=== PATIENT | female | born 1950 | race Caucasian/White ===

== ENCOUNTER → 2021-06-17 08:59 | Outpatient (BNVA) | payer MEDICARE, SELFPAY | PROVIDERS: Visit Provider Nurse Practitioner Family | DX: E03.9 Hypothyroidism, unspecified (principal); I10 Essential (primary) hypertension; Z68.26 Body mass index [BMI] 26.0-26.9, adult | CPT/HCPCS: 80053; 80061; 84439; 84443; 85025 ==

== ENCOUNTER 2021-08-01 09:49 | Emergency (ER) | payer MEDICARE, SELFPAY ==
[2021-08-01 10:07] VITALS: BP 134/115; PULSE 91; RESP 20; TEMP 36.3; O2SAT 95; BMI 27.8
--- NOTE | 2021-08-01 10:07 | W.ED.GIBLEED ---
Documented by User: CHARLES Grady 08/01/21 14:16 HPI - GI Bleed General: Chief complaint: General Medical Stated complaint: Passing blood Time Seen by Provider: 08/01/21 10:06 Source: patient and family () Mode of arrival: ambulatory Limitations: no limitations History of Present Illness: Patient is a 71-year-old female who presents to ED today along with her for concerns of abdominal cramping and hematochezia starting yesterday evening. Patient states she could have a UTI as she is having urinary urgency. She has not noticed any dysuria or hematuria. She states she does have a known hemorrhoid and thinks that could be the source of her rectal bleeding. Patient and states she has had approximately 3 episodes total that contained approximately 2 tablespoons of bright red blood/clots. Patient states she gets abdominal cramping prior to needing to have a bowel movement. She states cramping subsides after she defecates. She has no previous history of enterocolitis, diverticulitis, etc. Previous abdominal surgeries include a cholecystectomy. Onset (ago): day(s) (yesterday) Pain Consistency: intermittent Relieving factors: bowel movement Exacerbating factors: none Associated symptoms: Reports abdominal pain; Denies chills, fever(s), malaise, nausea or vomiting Treatments Prior to Arrival: none Review of Systems Const: Denies: fever(s), chills, body aches, fatigue or malaise Card: Denies: chest pain Resp: Denies: dyspnea GI: Reports: abdominal pain, GI cramping and hematochezia; Denies: nausea, vomiting, hematemesis, heartburn, diarrhea, constipation, excessive flatus, fecal incontinence, melena or white/light colored stool : Reports: urinary urgency; Denies: flank pain, dysuria or hematuria Musc: Denies: back pain Neuro: Denies: weakness in extremities or dizziness PFS ED PFSH: Medical History History of skin cancer Hypertension Hypothyroidism Surgical History History of cholecystectomy History of heart surgery Social History Alcohol intake: never Physical Exam Const: COMMON NORMALS: no acute distress, patient oriented x3, no limitations, alert and well nourished GENERAL APPEARANCE: cooperative HENMT: COMMON NORMALS: normocephalic and atraumatic HEAD & SCALP: normocephalic and atraumatic Resp: COMMON NORMALS: normal respiratory effort and clear to auscultation bilaterally AUSCULTATION: clear to auscultation bilaterally Cardio: COMMON NORMALS: regular rate and regular rhythm RATE: regular rate RHYTHM: regular rhythm GI: COMMON NORMALS: Normal to inspection, nondistended, normoactive bowel sounds present, Soft to palpation, non-tender, No hepatosplenomegaly present and no masses INSPECTION: Yes normal to inspection AUSCULTATION: Yes normoactive bowel sounds PALPATION: Yes Soft to palpation and Yes No hepatosplenomegaly present RECTAL EXAM: visual inspection normal, heme positive stool, No External hemorrhoid(s) present and no fissure noted OTHER: pt states she is not having any abdominal pain currently : COMMON NORMALS: Yes no CVA tenderness BLADDER/KIDNEY EXAM: Yes no CVA tenderness Back/Pelvis: COMMON NORMALS: no CVA tenderness Extremity: GENERAL: Yes normal exam except as noted Neuro: COMMON NORMALS: patient oriented x3, moves all extremities, no focal motor deficits, no sensory deficits noted and gait normal SENSORIUM/ORIENTATION: Yes alert Skin: COMMON NORMALS: no rashes or lesions noted GENERAL SKIN EXAM: no rashes or lesions noted Course Vital Signs: Vital signs: Vital Signs Temperature 97.4 F L 08/01/21 10:11 Pulse Rate 85 08/01/21 14:32 Respiratory Rate 18 08/01/21 14:32 Blood Pressure 128/84 08/01/21 14:32 Pulse Oximetry 96 08/01/21 14:32 MDM - GI Bleed Medical Decision Making Patient clinically appears in no acute distress. Her vital signs are stable. Labs are fairly unremarkable. She does have a mild hypokalemia 3.2. Mag is normal. She was given 60 MEQ oral potassium here. UA does look suspicious for UTI with 2+ leuks, 15-25 WBCs and 2+ bacteria. CT scan showing diverticulitis of her sigmoid colon without abscess or perforation. She will be placed on Ciprofloxacin and Flagyl which will also cover for her UTI. We will culture urine. We will have her follow-up with general surgery for resolution of her diverticulitis and rectal bleeding. Strict return to ED precautions given to patient and who verbalized understanding. Lab Data I reviewed the patient's lab results. : 08/01/21 10:30 08/01/21 11:05 Radiology Impressions Abdomen/Pelvis CT 08/01/21 10:23 IMPRESSION: Sigmoid diverticulitis. No abscess seen. Laboratory Results WBC 10.8 10^3/uL (4.0-10.0) H 08/01/21 10:30 RBC 4.47 10^6/uL (4.1-5.3) 08/01/21 10:30 Hgb 13.8 g/dL (11.5-15.3) 08/01/21 10:30 Hct 39.6 % (37.0-47.0) 08/01/21 10:30 MCV 88.6 fl (81-99) 08/01/21 10:30 MCH 30.9 pg (28.0-34.0) 08/01/21 10:30 MCHC 34.8 g/dL (30.0-36.0) 08/01/21 10:30 RDW 12.1 % (12.1-15.1) 08/01/21 10:30 Plt Count 272 10^3/cmm (130-400) 08/01/21 10:30 MPV 11.3 fL (7.4-10.4) H 08/01/21 10:30 Neut % (Auto) 74.9 % 08/01/21 10:30 Lymph % (Auto) 13.7 % 08/01/21 10:30 [place] % (Auto) 10.4 % 08/01/21 10:30 Eos % (Auto) 0.3 % 08/01/21 10:30 Baso % (Auto) 0.5 % 08/01/21 10:30 Neut # (Auto) 8.09 10^3/uL (1.8-7.7) H 08/01/21 10:30 Lymph # (Auto) 1.5 10^3/uL (0.8-4.8) 08/01/21 10:30 [place] # (Auto) 1.1 10^3/uL (0.2-0.9) H 08/01/21 10:30 Eos # (Auto) 0.0 10^3/uL (0.0-0.8) 08/01/21 10:30 Baso # (Auto) 0.1 10^3/uL (0.0-0.1) 08/01/21 10:30 Nucleated RBC % (auto) 0 % 08/01/21 10:30 Nucleated RBCs # 0.0 /100WBC 08/01/21 10:30 PT 13.50 SECONDS (12.1-14.9) 08/01/21 10:38 INR 1.00 (0.8-1.2) 08/01/21 10:38 APTT 31.4 SECONDS (23.9-36.7) 08/01/21 10:38 Sodium 131 mmol/L (136-145) L 08/01/21 11:05 Potassium 3.2 mmol/L (3.5-5.1) L 08/01/21 11:05 Chloride 92 mmol/L (98-107) L 08/01/21 11:05 Carbon Dioxide 26 mmol/L (22-29) 08/01/21 11:05 Anion Gap 16.2 (5-19) 08/01/21 11:05 BUN 4 mg/dL (8-23) L 08/01/21 11:05 Creatinine 0.6 mg/dL (0.5-0.9) 08/01/21 11:05 GFR Calculation Not Reportable 08/01/21 11:05 Glucose 101 mg/dL (65-115) 08/01/21 11:05 Calculated Osmolality 269 mOsm/kg (285-295) L 08/01/21 11:05 Calcium 8.6 mg/dL (8.5-10.5) 08/01/21 11:05 Magnesium 1.8 mg/dL (1.7-2.3) 08/01/21 11:05 Total Bilirubin 0.6 mg/dL (0.15-1.2) 08/01/21 11:05 AST 18 U/L (0-32) 08/01/21 11:05 ALT 16 U/L (0-33) 08/01/21 11:05 Alkaline Phosphatase 80 IU/L (35-105) 08/01/21 11:05 Total Protein 6.5 g/dL (6.6-8.7) L 08/01/21 11:05 Albumin 4.1 g/dL (3.5-5.2) 08/01/21 11:05 Globulin 2.4 g/dL (1.3-4.6) 08/01/21 11:05 Urine Color Yellow (Yellow) 08/01/21 11:05 Urine Appearance Clear (CLEAR) 08/01/21 11:05 Urine pH 8 (5-7) H 08/01/21 11:05 Ur Specific [place] 1.005 (1.005-1.030) 08/01/21 11:05 Urine Protein Neg (Negative) 08/01/21 11:05 Urine Glucose (UA) Norm (Normal) 08/01/21 11:05 Urine Ketones Negative (Negative) 08/01/21 11:05 Urine Blood Neg (Negative) 08/01/21 11:05 Urine Nitrate Negative (Negative) 08/01/21 11:05 Urine Bilirubin Neg (Negative) 08/01/21 11:05 Prot Sulfosalicylic Acd Negative (Negative) 08/01/21 11:05 Urine Urobilinogen Norm mg/dL (Negative) 08/01/21 11:05 Ur Leukocyte Esterase 2+ (Negative) H 08/01/21 11:05 Urine RBC None /hpf (0-2) 08/01/21 11:05 Urine WBC 15-25 /hpf (0-5) H 08/01/21 11:05 Ur Squamous Epith Cells 0-4 /hpf (0-5) H 08/01/21 11:05 Amorphous Sediment Not Reportable 08/01/21 11:05 Urine Bacteria 2+ /hpf (NONE) H 08/01/21 11:[address] Abd/Pel: Radiologist's impression: [address] [address] [address] Scan Report Signed Patient: Michelle Vera Unit #: [id number] : 1950 Age/Sex: 71 / F ADM Date: 08/01/21 Loc: ER Room/Bed: Attending Dr: Ordering Provider/Ordering MD: Tiffanie Martinez Date of Service: 08/01/21 Procedure(s): CT abdomen pelvis w con* [id number] Accession Number(s): [id number] Report Number: [id number] PROCEDURE INFORMATION: Exam: CT Abdomen And Pelvis With Contrast Exam date and time: 08/01/2021 10:23 AM Age: 71 years old Clinical indication: Other: Cramping and blood in stool; Prior surgery; Surgery type: Gb; Additional info: Cramping, bloody stools TECHNIQUE: Imaging protocol: Computed tomography of the abdomen and pelvis with contrast. Radiation optimization: All CT scans at this facility use at least one of these dose optimization techniques: automated exposure control; mA and/or kV adjustment per patient size (includes targeted exams where dose is matched to clinical indication); or iterative reconstruction. Contrast material: OMNI 300; Contrast volume: 95 ml; Contrast route: INTRAVENOUS (IV); COMPARISON: No relevant prior studies available. RADIATION DOSE METRICS: Total DLP (mGy-cm): 1087.14 FINDINGS: Liver: Normal. No mass. Gallbladder and bile ducts: Cholelithiasis. Normal bile ducts. Pancreas: Normal. No ductal dilation. Spleen: Small benign calcified granulomas are present in the spleen. Adrenal glands: Normal. No mass. Kidneys and ureters: Normal. No hydronephrosis. Stomach and bowel: There is sigmoid diverticulosis. There is mural thickening of the sigmoid colon consistent with acute diverticulitis. No fluid-filled abscesses are seen. Appendix: No evidence of appendicitis. Intraperitoneal space: Unremarkable. No free air. No significant fluid collection. Vasculature: There is calcification of the aorta and iliac arteries. There is no abdominal aortic aneurysm. Lymph nodes: Unremarkable. No enlarged lymph nodes. Urinary bladder: Unremarkable as visualized. Reproductive: Unremarkable as visualized. Bones/joints: Degenerative changes are present in the spine especially at L4-L5. No acute bony abnormality. Soft tissues: Unremarkable. CT/CT abdomen pelvis w con* [id number] IMPRESSION: Sigmoid diverticulitis. No abscess seen. Dictated By: Jeremy Solares Signed By: Jeremy Solares Signed Date/Time: 08/01/21 1350 DD/ 1023 Discharge Plan Discharge Patient Disposition: Home Clinical Impression: Diverticulitis of sigmoid colon, Acute UTI Condition: Stable Prescriptions: New Flagyl 500 mg tablet 500 mg PO Q8H 7 Days Qty: 21 0RF Cipro 500 mg tablet 500 mg PO Q12H Qty: 14 0RF No Action aspirin [Adult Aspirin Regimen] 81 mg tablet,delayed release (DR/EC) 81 mg PO DAILY 0RF metoprolol tartrate 25 mg tablet 25 mg PO BID 0RF meclizine 25 mg tablet 25 mg PO DAILY PRN (Reason: Dizziness) 0RF All Day Allergy (cetirizine) 10 mg capsule 10 mg PO DAILY PRN (Reason: ALLERGIES) 0RF famotidine 40 mg tablet 40 mg PO DAILY 0RF lisinopril 40 mg tablet 40 mg PO DAILY Qty: 90 0RF hydrochlorothiazide 25 mg tablet 25 mg PO QAM Qty: 90 0RF cyclobenzaprine 10 mg tablet 10 mg PO DAILY PRN (Reason: muscle spasm) Qty: 30 0RF potassium chloride 20 mEq tablet extended release 20 meq PO DAILY Qty: 30 5RF levothyroxine 75 mcg tablet 75 mcg PO DAILY Qty: 60 0RF Discharge Orders: Discharge ED (Routine); Ordered 08/01/21 Ordered By: Tiffanie Martinez Patient Instructions: Diverticulitis (ED), Urinary Tract Infection in Older Adults (ED) Activity Restrictions/Additional Instructions: As we discussed we are placing you on antibiotics for the diverticulitis in your colon. The antibiotic should also cover for your urinary tract infection. We will have you follow-up with general surgery in case symptoms (abdominal pain/cramping/rectal bleeding) do not seem to be improving. You need to return to the emergency immediately for worsening abdominal pains, repetitive episodes of vomiting, severe rectal bleeding, severe weakness, inability to hold down your antibiotics, fevers, flank pain, inability to urinate or any other concerns you may have. I hope you begin to feel better soon. Coding Level of Care Code ED Safety And Security Officer for Chg Fwd Exam Comprehensive Documented by User: Jose Roberto Wallis MD 08/06/21 05:03 HPI - GI Bleed General: Chief complaint: General Medical Stated complaint: Passing blood Time Seen by Provider: 08/01/21 10:06 ON LICENSE OF [facility] ED PFSH: Medical History History of skin cancer Hypertension Hypothyroidism Surgical History History of cholecystectomy History of heart surgery Social History Alcohol intake: never Course Vital Signs: Vital signs: Vital Signs Temperature 97.4 F L 08/01/21 10:11 Pulse Rate 85 08/01/21 14:32 Respiratory Rate 18 08/01/21 14:32 Blood Pressure 128/84 08/01/21 14:32 Pulse Oximetry 96 08/01/21 14:32 MDM - GI Bleed Medical Decision Making Patient clinically appears in no acute distress. Her vital signs are stable. Labs are fairly unremarkable. She does have a mild hypokalemia 3.2. Mag is normal. She was given 60 MEQ oral potassium here. UA does look suspicious for UTI with 2+ leuks, 15-25 WBCs and 2+ bacteria. CT scan showing diverticulitis of her sigmoid colon without abscess or perforation. She will be placed on Ciprofloxacin and Flagyl which will also cover for her UTI. We will culture urine. We will have her follow-up with general surgery for resolution of her diverticulitis and rectal bleeding. Strict return to ED precautions given to patient and who verbalized understanding. I have reviewed this documentation by CHARLES Grady. Jose Roberto Wallis MD Emergency Medicine Lab Data : 08/01/21 10:30 08/01/21 11:05 Radiology Impressions Abdomen/Pelvis CT 08/01/21 10:23 IMPRESSION: Sigmoid diverticulitis. No abscess seen. Laboratory Results WBC 10.8 10^3/uL (4.0-10.0) H 08/01/21 10:30 RBC 4.47 10^6/uL (4.1-5.3) 08/01/21 10:30 Hgb 13.8 g/dL (11.5-15.3) 08/01/21 10:30 Hct 39.6 % (37.0-47.0) 08/01/21 10:30 MCV 88.6 fl (81-99) 08/01/21 10:30 MCH 30.9 pg (28.0-34.0) 08/01/21 10:30 MCHC 34.8 g/dL (30.0-36.0) 08/01/21 10:30 RDW 12.1 % (12.1-15.1) 08/01/21 10:30 Plt Count 272 10^3/cmm (130-400) 08/01/21 10:30 MPV 11.3 fL (7.4-10.4) H 08/01/21 10:30 Neut % (Auto) 74.9 % 08/01/21 10:30 Lymph % (Auto) 13.7 % 08/01/21 10:30 [place] % (Auto) 10.4 % 08/01/21 10:30 Eos % (Auto) 0.3 % 08/01/21 10:30 Baso % (Auto) 0.5 % 08/01/21 10:30 Neut # (Auto) 8.09 10^3/uL (1.8-7.7) H 08/01/21 10:30 Lymph # (Auto) 1.5 10^3/uL (0.8-4.8) 08/01/21 10:30 [place] # (Auto) 1.1 10^3/uL (0.2-0.9) H 08/01/21 10:30 Eos # (Auto) 0.0 10^3/uL (0.0-0.8) 08/01/21 10:30 Baso # (Auto) 0.1 10^3/uL (0.0-0.1) 08/01/21 10:30 Nucleated RBC % (auto) 0 % 08/01/21 10:30 Nucleated RBCs # 0.0 /100WBC 08/01/21 10:30 PT 13.50 SECONDS (12.1-14.9) 08/01/21 10:38 INR 1.00 (0.8-1.2) 08/01/21 10:38 APTT 31.4 SECONDS (23.9-36.7) 08/01/21 10:38 Sodium 131 mmol/L (136-145) L 08/01/21 11:05 Potassium 3.2 mmol/L (3.5-5.1) L 08/01/21 11:05 Chloride 92 mmol/L (98-107) L 08/01/21 11:05 Carbon Dioxide 26 mmol/L (22-29) 08/01/21 11:05 Anion Gap 16.2 (5-19) 08/01/21 11:05 BUN 4 mg/dL (8-23) L 08/01/21 11:05 Creatinine 0.6 mg/dL (0.5-0.9) 08/01/21 11:05 GFR Calculation Not Reportable 08/01/21 11:05 Glucose 101 mg/dL (65-115) 08/01/21 11:05 Calculated Osmolality 269 mOsm/kg (285-295) L 08/01/21 11:05 Calcium 8.6 mg/dL (8.5-10.5) 08/01/21 11:05 Magnesium 1.8 mg/dL (1.7-2.3) 08/01/21 11:05 Total Bilirubin 0.6 mg/dL (0.15-1.2) 08/01/21 11:05 AST 18 U/L (0-32) 08/01/21 11:05 ALT 16 U/L (0-33) 08/01/21 11:05 Alkaline Phosphatase 80 IU/L (35-105) 08/01/21 11:05 Total Protein 6.5 g/dL (6.6-8.7) L 08/01/21 11:05 Albumin 4.1 g/dL (3.5-5.2) 08/01/21 11:05 Globulin 2.4 g/dL (1.3-4.6) 08/01/21 11:05 Urine Color Yellow (Yellow) 08/01/21 11:05 Urine Appearance Clear (CLEAR) 08/01/21 11:05 Urine pH 8 (5-7) H 08/01/21 11:05 Ur Specific [place] 1.005 (1.005-1.030) 08/01/21 11:05 Urine Protein Neg (Negative) 08/01/21 11:05 Urine Glucose (UA) Norm (Normal) 08/01/21 11:05 Urine Ketones Negative (Negative) 08/01/21 11:05 Urine Blood Neg (Negative) 08/01/21 11:05 Urine Nitrate Negative (Negative) 08/01/21 11:05 Urine Bilirubin Neg (Negative) 08/01/21 11:05 Prot Sulfosalicylic Acd Negative (Negative) 08/01/21 11:05 Urine Urobilinogen Norm mg/dL (Negative) 08/01/21 11:05 Ur Leukocyte Esterase 2+ (Negative) H 08/01/21 11:05 Urine RBC None /hpf (0-2) 08/01/21 11:05 Urine WBC 15-25 /hpf (0-5) H 08/01/21 11:05 Ur Squamous Epith Cells 0-4 /hpf (0-5) H 08/01/21 11:05 Amorphous Sediment Not Reportable 08/01/21 11:05 Urine Bacteria 2+ /hpf (NONE) H 08/01/21 11:05 Discharge Plan Discharge Patient Disposition: Home Clinical Impression: Diverticulitis of sigmoid colon, Acute UTI Condition: Stable Prescriptions: New Flagyl 500 mg tablet 500 mg PO Q8H 7 Days Qty: 21 0RF Cipro 500 mg tablet 500 mg PO Q12H Qty: 14 0RF No Action aspirin [Adult Aspirin Regimen] 81 mg tablet,delayed release (DR/EC) 81 mg PO DAILY 0RF metoprolol tartrate 25 mg tablet 25 mg PO BID 0RF meclizine 25 mg tablet 25 mg PO DAILY PRN (Reason: Dizziness) 0RF All Day Allergy (cetirizine) 10 mg capsule 10 mg PO DAILY PRN (Reason: ALLERGIES) 0RF famotidine 40 mg tablet 40 mg PO DAILY 0RF lisinopril 40 mg tablet 40 mg PO DAILY Qty: 90 0RF hydrochlorothiazide 25 mg tablet 25 mg PO QAM Qty: 90 0RF cyclobenzaprine 10 mg tablet 10 mg PO DAILY PRN (Reason: muscle spasm) Qty: 30 0RF potassium chloride 20 mEq tablet extended release 20 meq PO DAILY Qty: 30 5RF levothyroxine 75 mcg tablet 75 mcg PO DAILY Qty: 60 0RF Discharge Orders: Discharge ED (Routine); Ordered 08/01/21 Ordered By: Tiffanie Martinez Patient Instructions: Diverticulitis (ED), Urinary Tract Infection in Older Adults (ED) Activity Restrictions/Additional Instructions: As we discussed we are placing you on antibiotics for the diverticulitis in your colon. The antibiotic should also cover for your urinary tract infection. We will have you follow-up with general surgery in case symptoms (abdominal pain/cramping/rectal bleeding) do not seem to be improving. You need to return to the emergency immediately for worsening abdominal pains, repetitive episodes of vomiting, severe rectal bleeding, severe weakness, inability to hold down your antibiotics, fevers, flank pain, inability to urinate or any other concerns you may have. I hope you begin to feel better soon. Coding Level of Care Code ED Safety And Security Officer for Joe Fwd Exam Comprehensive
[2021-08-01 10:11] VITALS: BP 134/115; PULSE 91; RESP 20; TEMP 36.3; O2SAT 95
--- NOTE | 2021-08-01 10:23 | CTR_ITS ---
PROCEDURE INFORMATION: Exam: CT Abdomen And Pelvis With Contrast Exam date and time: 08/01/2021 10:23 AM Age: 71 years old Clinical indication: Other: Cramping and blood in stool; Prior surgery; Surgery type: Gb; Additional info: Cramping, bloody stools TECHNIQUE: Imaging protocol: Computed tomography of the abdomen and pelvis with contrast. Radiation optimization: All CT scans at this facility use at least one of these dose optimization techniques: automated exposure control; mA and/or kV adjustment per patient size (includes targeted exams where dose is matched to clinical indication); or iterative reconstruction. Contrast material: OMNI 300; Contrast volume: 95 ml; Contrast route: INTRAVENOUS (IV); COMPARISON: No relevant prior studies available. RADIATION DOSE METRICS: Total DLP (mGy-cm): 1087.14 FINDINGS: Liver: Normal. No mass. Gallbladder and bile ducts: Cholelithiasis. Normal bile ducts. Pancreas: Normal. No ductal dilation. Spleen: Small benign calcified granulomas are present in the spleen. Adrenal glands: Normal. No mass. Kidneys and ureters: Normal. No hydronephrosis. Stomach and bowel: There is sigmoid diverticulosis. There is mural thickening of the sigmoid colon consistent with acute diverticulitis. No fluid-filled abscesses are seen. Appendix: No evidence of appendicitis. Intraperitoneal space: Unremarkable. No free air. No significant fluid collection. Vasculature: There is calcification of the aorta and iliac arteries. There is no abdominal aortic aneurysm. Lymph nodes: Unremarkable. No enlarged lymph nodes. Urinary bladder: Unremarkable as visualized. Reproductive: Unremarkable as visualized. Bones/joints: Degenerative changes are present in the spine especially at L4-L5. No acute bony abnormality. Soft tissues: Unremarkable. CT/CT abdomen pelvis w con* [id number] IMPRESSION: Sigmoid diverticulitis. No abscess seen.
[2021-08-01 10:42] LABS: Basophils # 0.1 10^3/uL (0.0-0.1); Basophils % 0.5 %; Eosinophils % 0.3 %; Hematocrit 39.6 % (37.0-47.0); Hemoglobin 13.8 g/dL (11.5-15.3); Lymphocytes # 1.5 10^3/uL (0.8-4.8); Lymphocytes % 13.7 %; Mean Corpuscular HGB Conc 34.8 g/dL (30.0-36.0); Mean Corpuscular Hemoglobin 30.9 pg (28.0-34.0); Mean Corpuscular Volume 88.6 fl (81-99); Mean Platelet Volume 11.3 fL (7.4-10.4); Monocytes # 1.1 10^3/uL (0.2-0.9); Monocytes % 10.4 %; Neutrophils # 8.09 10^3/uL (1.8-7.7); Neutrophils % 74.9 %; Nucleated Red Blood Cells % 0 %; Platelet Count 272 10^3/cmm (130-400); Red Blood Count 4.47 10^6/uL (4.1-5.3); Red Cell Distribution Width 12.1 % (12.1-15.1); White Blood Count 10.8 10^3/uL (4.0-10.0)
[2021-08-01 11:07] VITALS: BP 130/85; PULSE 85; RESP 18; O2SAT 95
[2021-08-01 11:13] LABS: Partial Thromboplastin Time 31.4 SECONDS (23.9-36.7)
[2021-08-01 12:03] LABS: Alanine Aminotransferase 16 U/L (0-33); Albumin Level 4.1 g/dL (3.5-5.2); Alkaline Phosphatase 80 IU/L (35-105); Anion Gap 16.2 (5-19); Aspartate Amino Transferase 18 U/L (0-32); Blood Urea Nitrogen 4 mg/dL (8-23); Calcium 8.6 mg/dL (8.5-10.5); Carbon Dioxide 26 mmol/L (22-29); Chloride 92 mmol/L (98-107); Globulin 2.4 g/dL (1.3-4.6); Glucose 101 mg/dL (65-115); Osmolality Calculated 269 mOsm/kg (285-295); Potassium 3.2 mmol/L (3.5-5.1); Sodium 131 mmol/L (136-145); Total Bilirubin 0.6 mg/dL (0.15-1.2); Total Protein 6.5 g/dL (6.6-8.7)
[2021-08-01 12:23] LABS: Urine Appearance Clear (CLEAR); Urine Color Yellow (Yellow); pH Urine 8 (5-7)
[2021-08-01 12:24] LABS: Add Urine Culture? Yes; Add Urine Microscopic? YES; Bacteria Urine 2+ /hpf; Bilirubin Urine Neg (Negative); Blood Urine Neg (Negative); Glucose Urine UA Norm (Normal); Ketones Urine Negative (Negative); Leukocyte Esterase Urine 2+ (Negative); Nitrate Urine Negative (Negative); Protein Urine Neg (Negative); Specific Gravity, Urine 1.005 (1.005-1.030); Squamous Epithelial Cell Urine 0-4 /hpf (0-5); Sulfosalicylic Acid Urine Negative (Negative); Urobilinogen Urine Norm (Negative); WBC Urine 15-25 /hpf (0-5)
[2021-08-01] MEDS: iohexol 300 mg/mL 100 mL Btl IV (12:51)
[2021-08-01 13:25] LABS: Magnesium 1.8 mg/dL (1.7-2.3)
[2021-08-01 13:26] VITALS: BP 132/91; PULSE 87; RESP 18; O2SAT 96
[2021-08-01] MEDS: potassium chloride ER 20 mEq Tablet 60 MEQ PO (14:18)
[2021-08-01 14:32] VITALS: BP 128/84; PULSE 85; RESP 18; O2SAT 96
--- NOTE | 2021-08-04 10:46 | DCPLANNER ---
Addendum entered by Robyn Lopez 08/07/21 14:10: senior mechanical project manager was told that when clinic called patient to schedule an appointment, that patient did not want the appointment at this time. Clinic gave patient the phone number to the clinic, and patient is to call if she changes her mind. Original Note: senior mechanical project manager had message to schedule a follow up appointment for patient with general surgery. senior mechanical project manager emailed patients information to Katja Mcdowell and Angelica for review. Patients information will be printed and reviewed. Clinic will call patient with appointment information.
== END 2021-08-01 14:30 | disposition home or self-care (01) ==
PROVIDERS: Emergency Provider Physician Assistant
DX: K57.32 Diverticulitis of large intestine without perforation or abscess without bleeding (principal); N39.0 Urinary tract infection, site not specified; Z79.82 Long term (current) use of aspirin; I10 Essential (primary) hypertension
CPT/HCPCS: 51798; 74177; 80053; 81001; 83735; 85025; 85610; 85730; 87086; 99284; Q9967

== ENCOUNTER → 2021-08-10 08:55 | Outpatient (BNVA) | payer MEDICARE, SELFPAY | PROVIDERS: Visit Provider Nurse Practitioner Family | DX: E03.9 Hypothyroidism, unspecified (principal) | CPT/HCPCS: 84443 ==

== ENCOUNTER → 2021-09-25 14:08 | Outpatient (BNVA) | payer MEDICARE, SELFPAY | PROVIDERS: Visit Provider Nurse Practitioner Family | DX: I10 Essential (primary) hypertension (principal) | CPT/HCPCS: 80053; 80061; 84443 ==

== ENCOUNTER → 2021-12-10 08:56 | Outpatient (BNVA) | payer MEDICARE, SELFPAY | PROVIDERS: Visit Provider Nurse Practitioner Family | DX: I10 Essential (primary) hypertension (principal); E03.9 Hypothyroidism, unspecified | CPT/HCPCS: 80053; 80061; 84443 ==

== ENCOUNTER → 2022-02-18 09:22 | Outpatient (BNVA) | payer MEDICARE, SELFPAY | PROVIDERS: Visit Provider Nurse Practitioner Family | DX: E03.9 Hypothyroidism, unspecified (principal) | CPT/HCPCS: 84443 ==

== ENCOUNTER → 2022-04-06 09:36 | Outpatient (BNVA) | payer MEDICARE, SELFPAY | PROVIDERS: Visit Provider Nurse Practitioner Family | DX: E03.9 Hypothyroidism, unspecified (principal); I10 Essential (primary) hypertension | CPT/HCPCS: 80053; 80061; 84443 ==

== ENCOUNTER → 2022-04-13 11:38 | Outpatient (BNVA) | payer MEDICARE, SELFPAY | PROVIDERS: Visit Provider Nurse Practitioner Family | DX: R00.2 Palpitations (principal); I20.8 Other forms of angina pectoris; R25.1 Tremor, unspecified; E56.9 Vitamin deficiency, unspecified; I10 Essential (primary) hypertension; E55.9 Vitamin D deficiency, unspecified; Z95.2 Presence of prosthetic heart valve | CPT/HCPCS: 82306; 82607; 85025 ==

== ENCOUNTER → 2022-05-26 08:55 | Outpatient (BNVA) | payer MEDICARE, SELFPAY | PROVIDERS: Visit Provider Family Medicine | DX: E03.9 Hypothyroidism, unspecified (principal) | CPT/HCPCS: 84443 ==

== ENCOUNTER 2023-04-05 14:35 | Outpatient (CLI) | payer MEDICARE, SELFPAY ==
--- NOTE | 2023-04-05 14:47 | USCV_ITS ---
Michelle Vera Age: 72 Gender: F : 1950 Exam Date: 04/05/2023 15:09 Ordering Phys: Olga Laurent MD Technologist: ADALI Exam Location: [facility] [place] Indication: PRIOR AO REPLACEMENT WITH PLASTIC PATCH ON AO NEAR VALVE. DONE AT [facility] BP: / HR: 72 Rhythm: Sinus Technical Quality: Adequate MEASUREMENTS (Male / Female) Normal Values 2D ECHO LV Diastolic Diameter PLAX 2.9 cm 4.2 - 5.9 / 3.9 - 5.3 cm LV Systolic Diameter PLAX 2.8 cm LV Chamber Size 2.1 cm IVS Diastolic Thickness 1.0 cm 0.6 - 1.0 / 0.6 - 0.9 cm IVS Systolic Thickness 1.3 cm LVPW Diastolic Thickness 1.3 cm 0.6 - 1.0 / 0.6 - 0.9 cm LVPW Systolic Thickness 1.7 cm RV Chamber Size 3.7 cm LVOT Diameter 2.0 cm LV Ejection Fraction 2D Teich 6.1 % LV Ejection Fraction MOD 2C 33.8 % LV Ejection Fraction 2C AL 34.9 % LA Diameter 2.9 cm LA Width 2.0 cm LA Height 3.9 cm RA Width 2.8 cm RA Height 4.0 cm Aorta at Sinotubular Diameter 2.9 cm IVC Diameter 1.3 cm M-MODE Aortic Annulus Diameter 2.6 cm LA Ao Ratio MM 1.4 MV E Point Septal Separation 0.7 cm DOPPLER AV Peak Velocity 299.3 cm/s LVOT Peak Velocity 93.0 cm/s AV Area Cont Eq vti 1.1 cm squared AV Area Cont Eq pk 1.0 cm squared MV Area PHT 2.9 cm squared Mitral E to A Ratio 0.9 MV E' Velocity 52.0 cm/s Mitral E to MV E' Ratio 14.5 Mitral E to LV E' Lateral Ratio 13.3 Mitral E to LV E' Septal Ratio 16.2 TR Peak Velocity 270.9 cm/s TR Peak Gradient 29.3 mmHg TR Mean Velocity 214.6 cm/s TR Mean Gradient 20.7 mmHg TR Velocity Time Integral 94.3 cm TV Peak E Velocity 67.0 cm/s Right Atrial Pressure 3.0 mmHg Pulmonary Artery Systolic Pressu 32.3 mmHg RV Acceleration Time 0.1 s RV Ejection Time 0.3 s RV AcT/ET 0.4 FINDINGS Left Ventricle Normal left ventricular size and systolic function, EF 65%. Moderate left ventricular hypertrophy. Appears to have some mid cavity obstruction.Grade I/IV diastolic dysfunction (abnormal relaxation filling pattern), normal to mildly elevated filling pressures. Right Ventricle The right ventricle is normal in size and function. Right Atrium The right atrium is normal in size. Left Atrium Mildly increased left atrial size. Mitral Valve Thickened mitral valve. Mild mitral annular calcification. Aortic Valve The bioprosthetic valve at the aortic position appears to be well-seated. There is thickening of the leaflets. Moderately severe aortic valve stenosis with a valve area 0.95 cm squared. Peak velocity of 3.09 m/s with a peak gradient of 38.3 and a mean gradient of 20.7 mmHg. Tricuspid Valve Mild to moderate tricuspid valve regurgitation. Pulmonic Valve Pulmonic valve not well visualized. Pericardium Normal pericardium without effusion. Aorta Normal aortic annulus size. IVC The inferior vena cava appears normal. CONCLUSIONS Normal left ventricular size and systolic function, EF 65%. Moderate left ventricular hypertrophy. Appears to have some mid cavity obstruction.Grade I/IV diastolic dysfunction (abnormal relaxation filling pattern), normal to mildly elevated filling pressures. Thickened mitral valve. Mild mitral annular calcification. Mildly increased left atrial size. The bioprosthetic valve at the aortic position appears to be well-seated. There is thickening of the leaflets. Moderately severe aortic valve stenosis with a valve area 0.95 cm squared. Peak velocity of 3.09 m/s with a peak gradient of 38.3 and a mean gradient of 20.7 mmHg. Mild to moderate tricuspid valve regurgitation. Estimated pulmonary artery peak systolic pressure 32 mmHg There is no pericardial effusion. There are no intracardiac masses. No similar previous studies are available for comparison Dr Radha Chávez MD [facility] (Electronically Signed) Final Date: 08 April 2023 11:21 S
== END 2023-04-05 14:36 | disposition home or self-care (01) ==
PROVIDERS: Visit Provider Student in an Organized Health Care Education/Training Program
DX: I11.0 Hypertensive heart disease with heart failure (principal); I50.30 Unspecified diastolic (congestive) heart failure; Z95.2 Presence of prosthetic heart valve; I08.3 Combined rheumatic disorders of mitral, aortic and tricuspid valves
CPT/HCPCS: 93306

== ENCOUNTER 2023-07-12 06:00 | Outpatient (RCR) | payer MEDICARE, SELFPAY | END 2023-07-20 23:59 | disposition home or self-care (01) | LOC: GPT 06:00 | PROVIDERS: Visit Provider Nurse Practitioner | DX: M62.81 Muscle weakness (generalized) (principal); R26.9 Unspecified abnormalities of gait and mobility; R26.81 Unsteadiness on feet; R26.2 Difficulty in walking, not elsewhere classified | CPT/HCPCS: 97110; 97112; 97162; 97530 ==

== ENCOUNTER 2023-07-21 06:00 | Outpatient (RCR) | payer MEDICARE, SELFPAY | END 2023-08-18 23:59 | disposition home or self-care (01) | LOC: GPT 06:00 | PROVIDERS: Visit Provider Nurse Practitioner | DX: M62.81 Muscle weakness (generalized) (principal); M26.9 Dentofacial anomaly, unspecified; R26.81 Unsteadiness on feet; R26.2 Difficulty in walking, not elsewhere classified | CPT/HCPCS: 97110; 97112; 97530 ==

== ENCOUNTER 2024-12-14 22:15 | Inpatient (IN) | payer MEDICARE, SELFPAY ==
--- OUTSIDE RECORDS SUMMARY | 2024-09-25 09:00 | XMS_ITS ---
Author Organization [employer] [facility] Address [address] [place] [phone] Care Team Providers Care Tobacco Sieve Operator Name Role Phone Radha Gustafson Unavailable [phone] Allergies Allergen (clinical drug ingredient) Drug/Non Drug Allergy documented on EMR Reaction Allergy Type Onset Date Status nitrofurantoin, macrocrystals / nitrofurantoin, monohydrate Macrobid rash Drug Allergy 04/18/2023 Active Penicillin hives Drug Allergy Active REASON FOR VISIT 6 month f/u; CCA Medications Medication SIG (Take, Route, Frequency, Duration) Notes Start Date End Date Status Cyclobenzaprine HCl 10 MG 1 tablet at bedtime Orally Once a day; Duration: 30 days As needed for muscle spasm Active Metoprolol Tartrate 25 MG TAKE 1 TABLET BY MOUTH TWICE DAILY HOLD IF HEART RATE IS LESS THAN 60 OR BLOOD PRESSURE LESS THAN 100/60; Duration: 90 Active Lisinopril 40 MG Take 1 tablet by mouth once daily; Duration: 90 Active Ketoconazole 2 % 1 application to fac e rash Externally twice daily; Duration: 30 days 09/27/2024 11/26/2024 Active Triamcinolone Acetonide 0.025 % 1 application to face rash Externally twice daily; Duration: 10 days 09/27/2024 Active Mkafdjfz-Btkcocsmw-YJ 1 % 4 drops into a ffected ear Otic Three times a day; Duration: 01/06/2023 Not-Taking Meclizine HCl 25 MG 1 tablet as needed Oral every 12 hrs; Duration: 30 days Not-Taking Famotidine 40 MG 1 tablet as needed Orally Once a day; Duration: 90 days Active Levothyroxine Sodium 75 MCG Take 1 tablet by mouth once daily for 90 days Active Social History Sex Assigned At : Social History Observation Description Sex Assigned At Female Vital Signs Temperature 98 degrees Fahrenheit 09/25/2024 Heart Rate 82 /min 09/25/2024 Height 60.5 in 09/25/2024 Weight 137 lbs 09/25/2024 BMI 26.31 kg/m2 09/25/2024 Oximetry 98 % 09/25/2024 Height-cm 153.67 cm 09/25/2024 Weight-kg 62.14 kg 09/25/2024 Encounters Encounter Location Date Provider Diagnosis [address] [address] 09/25/2024 Radha Gustafson Hypothyroidism, unspecified type E03.9 ; Hypertensive heart disease with heart failure I11.0 ; Heart failure, unspecified HF chronicity, unspecified heart failure type I50.9 ; Acute foreign body of left ear canal, initial encounter T16.2XXA ; Intertrigo L30.4 and Seborrheic dermatitis L21.9 Assessments Encounter Date Diagnosis (ICD Code) Assessment Notes Treatment Notes Treatment Clinical Notes Section Notes 09/25/2024 Hypothyroidism, unspecified type (ICD-10 - E03.9) 09/25/2024 Hypertensive heart disease with heart failure (ICD-10 - I11.0) 09/25/2024 Heart failure, unspecified HF chronicity, unspecified heart failure type (ICD-10 - I50.9) 09/25/2024 Acute foreign body of left ear canal, initial encounter (ICD-10 - T16.2XXA) 09/25/2024 Intertrigo (ICD-10 - L30.4) 09/25/2024 Seborrheic dermatitis (ICD-10 - L21.9) Plan Of Treatment Medication Medication Name Sig Start Date Stop Date Notes Ketoconazole 2 % 1 application to fac e rash Externally twice daily; Duration: 30 days 09/27/2024 11/26/2024 Triamcinolone Acetonide 0.02 5 % 1 application to face rash Externally twice daily; Duration: 10 days 09/27/2024 Future Test Test Name Order Date LIPID PANEL, STANDARD (7600) 12/25/2024 COMPREHENSIVE METABOLIC PANEL (88991) CBC (INCLUDES DIFF/PLT) (6399) URINALYSIS, COMPLETE W/REFLEX TO CULTURE (1410) 12/25/2024 TSH W/REFLEX TO FT4 (59117) 12/25/2024 Next Appt Details Provider Name:Radha Gustafson , 12/26/2024 08:30:00 AM, [address] [place] [address], [facility], [place], [address], Provider Name:Radha Gustafson , 01/02/2025 02:00:00 PM, [address] [place] [address], [facility], [place], [address], Progress Notes * Michelle VERA KDOB:1950 (74 yo F)Acc No.[id number]:09/25/2024 Patient: Michelle BEDOYA Provider: Gaviota kvng :1950 A ge:74 Y S ex:Female Date:09/25/2024 Address:[address] [place], [place] [id number] Subjective: * Chief Complaints: * 1 . 6 month f/u; CCA. * HPI: T ransition of Care: rash on face for about a week. using otc hct, not itchy. has scaley rash left ear canal. husb reports she was cleaning left ear with q tip this am and top came off. she c/o intermittent upper abd pain, left and right. no aggravating or alleviating factors. D epression screening: PHQ-9 L ittle interest or pleasure in doing things?Not at all F eeling down, depressed, or hopeless N ot at all T rouble falling or staying asleep, or sleeping too much N ot at all F eeling tired or having little energy N ot at all P oor appetite or overeating N ot at all F eeling bad about yourself or that you are a failure, or have let yourself or your family down N ot at all T rouble concentrating on things, such as reading the newspaper or watching television S everal days M oving or speaking so slowly that other people could have noticed; or the opposite, being so fidgety or restless that you have been moving around a lot more than usual N ot at all T houghts that you would be better off or of hurting yourself in some way N ot at all T otal Score 1 I nterpretation M inimal Depression * ROS: G eneral / Constitutional: Comments f eeling well. E NT: Comments S HPI for details. G astrointestinal: Patient denies c hange in bowel habits. G enitourinary: Patient denies p ainful urination, change in bladder habits. S kin: Comments S ee HPI for details. * Medical History: H [place], AORTIC VALVE REPLACEMENT (porcine) 2011, [place]. HAS APPT DR RODRIGUEZ 06/2022, PT CANCELLED, HYPOTHYROIDISM, RIGHT HAND DOESN'T WORK WELL...SAW NEUROLOGY IN [place], NORMAL MRI. MUSCLE RELAXER HELPS AT , COLITIS SUMMER 2021...DIDN'T KEEP COLONOSCOPY APPT., NORMAL COLONOSCOPY 2017. RECOMMEND REPEAT 2022, DEXA; NEVER DONE, RIGHT HAND WEAKNESS , DECREASED COORDINATION. HAD NEURO CONSULT A FEW YEARS AGO. NO DX GIVEN, Aneurysm repair at time of valve replacement. * Medications: T aking Famotidine 40 MG Tablet 1 tablet as needed Orally Once a day , Notes: VO cl/mw, Taking Levothyroxine Sodium 75 MCG Tablet Take 1 tablet by mouth once daily for 90 days , Taking Lisinopril 40 MG Tablet Take 1 tablet by mouth once daily , Taking Cyclobenzaprine HCl 10 MG Tablet 1 tablet at bedtime Orally Once a day As needed for muscle spasm, Taking Metoprolol Tartrate 25 MG Tablet TAKE 1 TABLET BY MOUTH TWICE DAILY HOLD IF HEART RATE IS LESS THAN 60 OR BLOOD PRESSURE LESS THAN 100/60 , Not-Taking Ttdsxnir-Ntveldues-YJ 1 % Solution 4 drops into affected ear Otic Three times a day , Not-Taking Meclizine HCl 25 MG Tablet 1 tablet as needed Oral every 12 hrs * Allergies: P enicillin: hives, Macrobid: rash - Onset Date 04/18/2023. Objective: * Vitals: H R:82/min, Temp:98F, Oxygen sat %:98%, Wt:137lbs, Wt-k.14 kg, Ht: 60.5 in, Ht-cm: 153.67 cm, BMI:26.31Index, Body Surface Area: 1.63. * Examination: G eneral Examination: General appearance: a lert, pleasant, well-nourished and in no acute distress. Ears: l eft ear auditory canal obscured with FB right ear normal . Skin: s eborrheic keratoses to back. intertrigo face. left external ear canal scaley eruption. Heart: H RRR with murmur. RSB. 2-3/6 no edema. Lungs: c lear to auscultation bilaterally, with good air movement and no rales, rhonchi or wheezes. Abdomen: S oft, no tenderness to palpation. No rigidity or guarding. Back: n o costovertebral angle tenderness. Peripheral pulses: n ormal 2+ arterial pulses . Neurologic: a lert and oriented . Psych: c ooperative with exam. Assessment: * Assessment: 1. H ypothyroidism, unspecified type - E03.9 2 . H ypertensive heart disease with heart failure - I11.0 3 . H eart failure, unspecified HF chronicity, unspecified heart failure type - I50.9 4 . A cute foreign body of left ear canal, initial encounter - T16.2XXA 5 . I ntertrigo - L30.4 6 . S eborrheic dermatitis - L21.9 Plan: * Treatment: 2. H ypertensive heart disease with heart failure L AB: CBC (INCLUDES DIFF/PLT) (6399) (Ordered for 12/25/2024) L AB: COMPREHENSIVE METABOLIC PANEL (25379) (Ordered for 12/25/2024) L AB: LIPID PANEL, STANDARD (7600) (Ordered for 12/25/2024) L AB: URINALYSIS, COMPLETE W/REFLEX TO CULTURE (3020) (Ordered for 12/25/2024) 3. S eborrheic dermatitis Start Ketoconazole Cream, 2 %, 1 application to face rash, Externally, twice daily, 30 days, 1, Refills 1; S tart Triamcinolone Acetonide Cream, 0.025 %, 1 application to face rash, Externally, twice daily, 10 days, 1, Refills 1. * Billing Information: * Visit Code: * Procedure Codes: Images * CCA 2024 * Electronic signature of Fabian Gustafson , FNPBCMSN on 12/14/2024 at 10:21 PM CDT Sign off status: Pending * Provider: Gaviota Gustafson Date: 0 09/25/2024 Generated for Cassandra ledbetter/Heather/Peter on: 0 12/14/2024 10:21 PM CDT History and Physical Notes * HPI (History of Present Illness) Category Sub-Category Detail Notes Category Not es Depression screening PHQ-9 Little inte rest or pleasure in doing things: Not at all Feeling down, depressed, or hopeless: No t at all Trouble falling or staying asleep, or sl eeping too much: Not at all Feeling tired or having little energy: N ot at all Poor appetite or overeating: Not at all Feeling bad about yourself o r that you are a failure, or have let yourself or your family down: Not at all Trouble concentrating on thi ngs, such as reading the newspaper or watching television: Several days Moving or speaking so slowly that other people could have noticed; or the opposite, being so fidgety or restless that you have been moving around a lot more than usual: Not at all Thoughts that you would be b misael off or of hurting yourself in some way: Not at all Total Score: 1 Interpretation: Minimal Depression Examination Category Sub-Category Detail Notes Category Not es General Examination General appearance: alert, p leasant, well-nourished and in no acute distress Ears: left ear auditory ca nal obscured with FB right ear normal Heart: HRRR with murmur. RS B. 2-3/6 no edema Lungs: clear to auscultatio n bilaterally, with good air movement and no rales, rhonchi or wheezes Abdomen: Soft, no tenderness to palpation. No rigidity or guarding Neurologic: alert and oriented Skin: seborrheic keratoses to back. intertrigo face. left external ear canal scaley eruption Peripheral pulses: normal 2+ arterial p ulses Back: no costovertebral an gle tenderness Psych: cooperative with exa m
--- OUTSIDE RECORDS SUMMARY | 2024-11-28 08:15 | XMS_ITS ---
Author Organization [email or web address] Address [address] [place] [phone] Care Team Providers Care Protohistorian Name Role Phone Radha Gustafson [phone] REASON FOR VISIT 6 month f/u Social History Sex Assigned At : Social History Observation Description Sex Assigned At Female Encounters Encounter Location Date Provider Diagnosis [email or web address] [address] [address] 11/28/2024 Radha Gustafson Plan Of Treatment Next Appt Details Provider Name:Radha Sujata , 12/26/2024 08:30:00 AM, [address] [place] [address], [phone], Provider Name:Radha Gustafson , 01/02/2025 02:00:00 PM, [address] [place] [address], [phone], Progress Notes * Michelle VERA KDOB:1950 (74 yo F)Acc No.[id number]:11/28/2024 Patient: Michelle BEDOYA Provider: Gaviota Gustafson :1950 A ge:74 Y S ex:Female Date:11/28/2024 Address:[address] [place] [phone] Subjective: * Chief Complaints: * 1 . 6 month f/u. * Medical History: Objective: * Vitals: Assessment: Plan: * Treatment: * Billing Information: * Visit Code: * Procedure Codes: * Electronic signature of Fabian Gustafson [email or web address] on 12/14/2024 at 10:22 PM CDT Sign off status: Pending * Provider: Gaviota Gustafson Date: 0 11/28/2024 Generated for Cassandra Sal on: 0 12/14/2024 10:22 PM CDT
[2024-12-14 22:15] VITALS: BP 178/92; PULSE 96; RESP 16; TEMP 36.4; O2SAT 96; BMI 24.7
--- OUTSIDE RECORDS SUMMARY | 2024-12-14 22:21 | XMS_ITS | Patient Health Record ---
Author Organization [employer] [facility] [address] [place] [phone] Care Team Providers Care Screwmaker Automatic Name Role Phone Radha Gustafson Unavailable [phone] Allergies Allergen (clinical drug ingredient) Drug/Non Drug Allergy documented on EMR Reaction Allergy Type Onset Date Status nitrofurantoin, macrocrystals / nitrofurantoin, monohydrate Macrobid rash Drug Allergy 04/18/2023 Active Penicillin hives Drug Allergy Active Results Component Value Reference Range Notes Urine Dipstick Test Reviewed date:01/09/2024 01:35:12 PM Interpretation:Normal Performing Lab: Notes/Report: Normal Glucose neg neg - 4+ Bilirubin neg neg - 3+ Ketones neg neg - 4+ Specific Wheeler 1.010 1 - 1.030 Blood neg neg - 3+ Ph 6.0 5.0 - 9.0 Protein neg neg - 4+ Urobilinogen neg 0.2 - 12 mg/dl Nitrites neg neg - pos Leukocytes neg neg - 3+ COMPREHENSIVE METABOLIC PANE L ([id number]) Reviewed date:01/11/2024 06:59:43 PM Interpretation: Performing Lab:[place], [facility]-[id number] [facility], [id number] Vince Garcia MD Notes/Report: 0 0 0 GLUCOSE 107 65-99 mg/dL Fasting reference interval For someone without known diabetes, a glucose value between 100 and 125 mg/dL is consistent with prediabetes and should be confirmed with a follow-up test. UREA NITROGEN (BUN) 7 7-25 mg/dL CREATININE 0.67 0.60-1.00 mg/dL EGFR 92 > OR = 60 mL/min/1.73m2 BUN/CREATININE RATIO SEE NOTE: 6-22 (calc) Not Reported: BUN and Creatinine are within reference range. SODIUM 137 135-146 mmol/L POTASSIUM 4.1 3.5-5.3 mmol/L CHLORIDE 103 98-110 mmol/L CARBON DIOXIDE 25 20-32 mmol/L CALCIUM 9.3 8.6-10.4 mg/dL PROTEIN, TOTAL 6.6 6.1-8.1 g/dL ALBUMIN 4.3 3.6-5.1 g/dL GLOBULIN 2.3 1.9-3.7 g/dL (calc) ALBUMIN/GLOBULIN RATIO 1.9 1.0-2.5 (calc) BILIRUBIN, TOTAL 0.8 0.2-1.2 mg/dL ALKALINE PHOSPHATASE 66 37-153 U/L AST 22 10-35 U/L ALT 13 6-29 U/L CBC (INCLUDES DIFF/PLT) (639 9) Reviewed date:01/11/2024 06:59:43 PM Interpretation: Performing Lab:[facility] [employer]-[id number] [facility], [id number] Vince Garcia MD Notes/Report: 0 0 0 WHITE BLOOD CELL COUNT 6.1 3.8-10.8 Thousand/ uL RED BLOOD CELL COUNT 4.27 3.80-5.10 Million/uL HEMOGLOBIN 13.0 11.7-15.5 g/dL HEMATOCRIT 38.3 35.0-45.0 % MCV 89.7 80.0-100.0 fL MCH 30.4 27.0-33.0 pg MCHC 33.9 32.0-36.0 g/dL RDW 13.0 11.0-15.0 % PLATELET COUNT 165 140-400 Thousand/uL MPV 12.0 7.5-12.5 fL ABSOLUTE NEUTROPHILS 3489 8715-3487 cells/uL ABSOLUTE LYMPHOCYTES 2062 850-3900 cells/uL ABSOLUTE MONOCYTES 427 200-950 cells/uL ABSOLUTE EOSINOPHILS 79 15-500 cells/uL ABSOLUTE BASOPHILS 43 0-200 cells/uL NEUTROPHILS 57.2 LYMPHOCYTES 33.8 MONOCYTES 7.0 EOSINOPHILS 1.3 BASOPHILS 0.7 TSH W/REFLEX TO FT4 (81447) Reviewed date:01/11/2024 06:59:43 PM Interpretation: Performing Lab:[facility] [employer]-Ephuza01214 Kalli Plascencia, [id number] Vince Garcia MD Notes/Report: 0 0 0 TSH W/REFLEX TO FT4 2.13 0.40-4.50 mIU/L Urine Dipstick Test Reviewed date:05/22/2024 11:05:00 AM Interpretation:Abnormal Performing Lab: Notes/Report: Abnormal Glucose neg neg - 4+ Bilirubin neg neg - 3+ Ketones neg neg - 4+ Specific Wheeler 1.005 1 - 1.030 Blood neg neg - 3+ Ph neg 5.0 - 9.0 Protein neg neg - 4+ Urobilinogen neg 0.2 - 12 mg/dl Nitrites neg neg - pos Leukocytes 3+ (500) neg - 3+ CULTURE, URINE, ROUTINE (395 ) Reviewed date:05/22/2024 11:05:00 AM Interpretation: Performing Lab:[facility] [employer] [facility]-[id number] Kalli Plascencia, [id number] Vince Garcia MD Notes/Report: 0 CULTURE, URINE, ROUTINE SEE NOTE CULTURE, URINE, ROUTINE Micro Number: [id number] Test Status: Final Specimen Source: Clean catch Specimen Quality: Adequate Result: 50,000-100,000 CFU/mL of Escherichia coli 50,000-100,000 CFU/mL of Group B Streptococcus isolated Beta-hemolytic streptococci are predictably susceptible to Penicillin and other beta-lactams. Susceptibility testing not routinely performed. Please contact the laboratory within 3 days if susceptibility testing is desired. Comment: Erythromycin and clindamycin are not recommended for treatment of urinary tract infections, but clindamycin may be useful for treatment of rectovaginal colonization or infection. E.coli INT JONO AMOX/CLAVULANATE S <=2 AMP/SULBACTAM S <=2 CEFAZOLIN NR <=4 2 CEFEPIME S <=0.12 CEFTAZIDIME S <=1 CEFTRIAXONE S <=0.25 CIPROFLOXACIN S <=0.06 GENTAMICIN S <=1 IMIPENEM S 0.5 LEVOFLOXACIN S <=0.12 MEROPENEM S <=0.25 NITROFURANTOIN S <=16 PIP/TAZOBACTAM S <=4 TRIMETHOPRIM/SULFA S <=20 S = Susceptible I = Intermediate R = Resistant NS = Not susceptible SDD = Susceptible Dose Dependent * = Not Tested NR = Not Reported NN = See Therapy Comments THERAPY COMMENTS Note 1: For infections other than uncomplicated UTI caused by E. coli, K. pneumoniae or P. mirabilis: Cefazolin is resistant if JONO > or = 8 mcg/mL. (Distinguishing susceptible versus intermediate for isolates with JONO < or = 4 mcg/mL requires additional testing.) Note 2: For uncomplicated UTI caused by E. coli, K. pneumoniae or P. mirabilis: Cefazolin is susceptible if JONO <32 mcg/mL and predicts susceptible to the oral agents cefaclor, cefdinir, cefpodoxime, cefprozil, cefuroxime, cephalexin and loracarbef. LIPID PANEL, STANDARD (7600) Reviewed date:03/31/2024 05:51:30 PM Interpretation: Performing Lab:[facility] [employer]-[id number] Kalli Plascencia, [id number] Vince Garcia MD Notes/Report: 0 0 0 0 CHOLESTEROL, TOTAL 220 <200 mg/dL HDL CHOLESTEROL 81 > OR = 50 mg/dL TRIGLYCERIDES 130 <150 mg/dL LDL-CHOLESTEROL 114 Reference range: <100 Desirable range <100 mg/dL for primary prevention; <70 mg/dL for patients with CHD or diabetic patients with > or = 2 CHD risk factors. LDL-C is now calculated using the Pranav-Traylor calculation, which is a validated novel method providing better accuracy than the Friedewald equation in the estimation of LDL-C. Pranav SS et al. CHAN. 2013;310(19): 8303-9441 (http://education.Combined Effort/faq/WZU202) CHOL/HDLC RATIO 2.7 <5.0 (calc) NON HDL CHOLESTEROL 139 <130 mg/dL (calc) For patients with diabetes plus 1 major ASCVD risk factor, treating to a non-HDL-C goal of <100 mg/dL (LDL-C of <70 mg/dL) is considered a therapeutic option. BASIC METABOLIC PANEL (25228 ) Reviewed date:03/31/2024 05:51:30 PM Interpretation: Performing Lab:[facility] [employer]-[id number] Cory [id number] Vince Garcia MD Notes/Report: 0 0 0 0 GLUCOSE 92 65-99 mg/dL Fasting reference interval UREA NITROGEN (BUN) 6 7-25 mg/dL CREATININE 0.58 0.60-1.00 mg/dL EGFR 95 > OR = 60 mL/min/1.73m2 BUN/CREATININE RATIO 10 6-22 (calc) SODIUM 138 135-146 mmol/L POTASSIUM 4.2 3.5-5.3 mmol/L CHLORIDE 100 98-110 mmol/L CARBON DIOXIDE 32 20-32 mmol/L CALCIUM 9.6 8.6-10.4 mg/dL CBC (INCLUDES DIFF/PLT) (639 9) Reviewed date:03/31/2024 05:51:30 PM Interpretation: Performing Lab:[facility] [employer]-[id number] Kalli Montgomerysrikanth, [id number] Vince Garcia MD Notes/Report: 0 0 0 0 WHITE BLOOD CELL COUNT 5.7 3.8-10.8 Thousand/ uL RED BLOOD CELL COUNT 4.48 3.80-5.10 Million/uL HEMOGLOBIN 13.7 11.7-15.5 g/dL HEMATOCRIT 42.6 35.0-45.0 % MCV 95.1 80.0-100.0 fL MCH 30.6 27.0-33.0 pg MCHC 32.2 32.0-36.0 g/dL For adults, a slight decrease in the calculated MCHC value (in the range of 30 to 32 g/dL) is most likely not clinically significant; however, it should be interpreted with caution in correlation with other red cell parameters and the patient's clinical condition. RDW 12.8 11.0-15.0 % PLATELET COUNT 164 140-400 Thousand/uL MPV 11.8 7.5-12.5 fL ABSOLUTE NEUTROPHILS 3260 5612-2365 cells/uL ABSOLUTE LYMPHOCYTES 7510 887-4652 cells/uL ABSOLUTE MONOCYTES 365 200-950 cells/uL ABSOLUTE EOSINOPHILS 80 15-500 cells/uL ABSOLUTE BASOPHILS 40 0-200 cells/uL NEUTROPHILS 57.2 LYMPHOCYTES 34.3 MONOCYTES 6.4 EOSINOPHILS 1.4 BASOPHILS 0.7 TSH W/REFLEX TO FT4 (47628) Reviewed date:03/31/2024 05:51:30 PM Interpretation: Performing Lab:[facility] [employer]-[id number] Kalli Plascencia, [id number] Vince Garcia MD Notes/Report: 0 0 0 0 TSH W/REFLEX TO FT4 1.84 0.40-4.50 mIU/L Urine Dipstick Test Reviewed date:10/07/2024 08:12:48 PM Interpretation:Abnormal Performing Lab: Notes/Report: Abnormal Glucose neg neg - 4+ Bilirubin neg neg - 3+ Ketones neg neg - 4+ Specific Wheeler 1.005 1 - 1.030 Blood neg neg - 3+ Ph 6.0 5.0 - 9.0 Protein neg neg - 4+ Urobilinogen neg (0.2) 0.2 - 12 mg/dl Nitrites neg neg - pos Leukocytes 1+ (70) neg - 3+ URINALYSIS, COMPLETE W/REFLE X TO CULTURE (1140) Reviewed date:10/07/2024 08:12:48 PM Interpretation: Performing Lab:[facility] [employer] [facility] [place]-Nhiamp71278 Kalli Plascencia, [id number] Vince Garcia MD Notes/Report: 0 0 0 COLOR YELLOW YELLOW APPEARANCE CLEAR CLEAR SPECIFIC GRAVITY 1.005 1.001-1.035 PH 6.0 5.0-8.0 GLUCOSE NEGATIVE NEGATIVE BILIRUBIN NEGATIVE NEGATIVE KETONES NEGATIVE NEGATIVE OCCULT BLOOD NEGATIVE NEGATIVE PROTEIN NEGATIVE NEGATIVE NITRITE NEGATIVE NEGATIVE LEUKOCYTE ESTERASE 2+ NEGATIVE WBC 0-5 < OR = 5 /HPF RBC NONE SEEN < OR = 2 /HPF SQUAMOUS EPITHELIAL CELLS 0-5 < OR = 5 /HPF BACTERIA NONE SEEN NONE SEEN /HPF HYALINE CAST NONE SEEN NONE SEEN /LPF NOTE This urine was analyzed for the presence of WBC, RBC, bacteria, casts, and other formed elements. Only those elements seen were reported. REFLEXIVE URINE CULTURE CULTURE INDICATED - RESULTS TO FOLLOW CULTURE, URINE, ROUTINE Micro Number: [id number] Test Status: Final Specimen Source: Urine Specimen Quality: Adequate Result: Less than 10,000 CFU/mL of single Gram positive organism isolated. No further testing will be performed. If clinically indicated, recollection using a method to minimize contamination, with prompt transfer to Urine Culture Transport Tube, is recommended. CULTURE, URINE, ROUTINE SEE NOTE CULTURE INDICATED - RESULTS TO FOLLOW CULTURE, URINE, ROUTINE Micro Number: [id number] Test Status: Final Specimen Source: Urine Specimen Quality: Adequate Result: Less than 10,000 CFU/mL of single Gram positive organism isolated. No further testing will be performed. If clinically indicated, recollection using a method to minimize contamination, with prompt transfer to Urine Culture Transport Tube, is recommended. Reason For Referral No Information Medications Medication SIG (Take, Route, Frequency, Duration) Notes Start Date End Date Status Famotidine 40 MG 1 tablet as needed Orally Once a day; Duration: 90 days Active Meclizine HCl 25 MG 1 tablet as needed Oral every 12 hrs; Duration: 30 days Not-Taking Oyeriwxw-Lsqfwwqgn-VJ 1 % 4 drops into a ffected ear Otic Three times a day; Duration: 5 01/06/2023 Not-Taking Triamcinolone Acetonide 0.025 % 1 application to face rash Externally twice daily; Duration: 10 days 09/27/2024 Active Levothyroxine Sodium 75 mcg TAKE ONE TABLET BY MOUTH ONCE DAILY; Duration: 90 Active Metoprolol Tartrate 25 MG TAKE 1 TABLET BY MOUTH TWICE DAILY HOLD IF HEART RATE IS LESS THAN 60 OR BLOOD PRESSURE LESS THAN 100/60; Duration: 90 Active Cyclobenzaprine HCl 10 MG 1 tablet at bedtime Orally Once a day; Duration: 30 days As needed for muscle spasm Active Lisinopril 40 MG Take 1 tablet by gregory th once daily; Duration: 90 Active Social History Sex Assigned At : Social History Observation Description Sex Assigned At Female Household Question Answer Notes Marital status: Section Notes: HX OF 25YR SMOKING HX, QUIT 10YR AGO 2011 HX OF 25YR SMOKING HX, QUIT 10YR AGO HX OF 25YR SMOKING HX, QUIT 10YR AGO 2011 Problems Problem Type SNOMED Code ICD Code Onset Dates Problem Status W/U Status Risk Notes Problem Hypertensive heart failure (85955664) Hypertensive heart disease with heart failure (I11.0) Active confirmed Problem Secondary hypertension (15594258) Other secondary hypertension (I15.8) Active confirmed Problem Dysuria (41856292) Dysuria (R30.0) Active confirmed Problem Visual hallucinations (19255727) Visual hallucinations (R44.1) Active confirmed Problem Hallucinations (7590564) Hallucinations, unspecified (R44.3) Active confirmed Problem Fatigue (86903804) Other fatigue (R53.83) Active confirmed Problem Primary hypertension (93464456) Primary hypertension (I10) Active confirmed Problem Hypersomnia (82722826) Hypersomnia (G47.10) Active confirmed Problem Heart murmur (97952386) Heart murmur (R01.1) Active confirmed Problem Constipation (37621629) Constipation, unspecified constipation type (K59.00) Active confirmed Problem Postmenopausal state (93986810) Post-menopausal (Z78.0) Active confirmed Problem Hypothyroidism (77602465) Hypothyroidism, unspecified type (E03.9) Active confirmed Problem Acute urinary tract infection (645586230) Acute UTI (N39.0) Active confirmed Problem History of heart valve repair with prosthesis ([id number]) Aortic valve replaced (Z95.2) Active confirmed Problem Heart failure (55257313) Heart failure, unspecified HF chronicity, unspecified heart failure type (I50.9) Active confirmed Problem Multiple seborrheic keratoses (634175389) Seborrheic keratoses (L82.1) Active confirmed Problem Reactive depression (situational) (20708458) Situational depression (F43.21) Active confirmed Vital Signs Heart Rate 78 /min 10/04/2024 Temperature 98.1 degrees Fahrenheit 10/04/2024 Height-cm 153.67 cm 10/04/2024 Oximetry 98 % 10/04/2024 Blood pressure diastolic 80 mm Hg 10/04/2024 Weight-kg 62.6 kg 10/04/2024 Height 60.5 in 10/04/2024 Blood pressure systolic 136 mm Hg 10/04/2024 Weight 138 lbs 10/04/2024 BMI 26.5 kg/m2 10/04/2024 Encounters Encounter Location Date Provider Diagnosis [facility] [employer] [facility] [address] [place] [phone] 09/25/2024 Radha Gustafson Hypothyroidism, unspecified type E03.9 ; Hypertensive heart disease with heart failure I11.0 ; Heart failure, unspecified HF chronicity, unspecified heart failure type I50.9 ; Acute foreign body of left ear canal, initial encounter T16.2XXA ; Intertrigo L30.4 and Seborrheic dermatitis L21.9 [facility] [employer] [facility] [address] [place] [phone] 01/09/2024 Radha Gustafson Dysuria R30.0 and Other fatigue R53.83 [facility] [employer] [facility] [address] [place] [phone] 03/27/2024 Radha Gustafson Hypertensive heart disease with heart failure I11.0 ; Heart failure, unspecified HF chronicity, unspecified heart failure type I50.9 ; Situational depression F43.21 ; Post-menopausal Z78.0 ; Hypothyroidism, unspecified type E03.9 ; Heart murmur R01.1 ; Other fatigue R53.83 and Aortic valve replaced Z95.2 [facility] [employer] [facility] [address] [place] [phone] 05/16/2024 Radha [place] Dysuria R30.0 ; Acut e UTI N39.0 ; Urinary urgency R39.15 and Vaginal discharge N89.8 [facility] [employer] [facility] [address] [place] [phone] 05/30/2024 Radha [place] Heart murmur R01.1 ; Acute vaginitis N76.0 and Seborrheic keratoses L82.1 [facility] [employer] [facility] [address] [place] [phone] 10/04/2024 Radha [place] Hallucinations, unspecified R44.3 ; Acute UTI N39.0 and Hypertensive heart disease with heart failure I11.0 [facility] [employer] [facility] [address] [place] [phone] 01/11/2024 [facility] [employer] [facility] [address] [place] [phone] 03/26/2024 Radha Gustafson Other secondary hypertension I15.8 and Other fatigue R53.83 [facility] [employer] [facility] [address] [place] [phone] 03/31/2024 [facility] [employer] [facility] [address] [place] [phone] 05/20/2024 Radha Gustafson Acute UTI N39.0 [facility] [employer] [facility] [address] [place] [phone] 09/24/2024 Radha Gustafson Hypertensive heart disease with heart failure I11.0 [facility] [employer] [facility] [address] [place] [phone] 09/25/2024 Radha Gustafson [facility] [address] [place] [phone] 09/26/2024 [facility] [address] [place] [phone] 10/07/2024 [facility] [address] [place] [phone] 10/08/2024 Radha Gustafson Assessments Encounter Date Diagnosis (ICD Code) Assessment Notes Treatment Notes Treatment Clinical Notes Section Notes 01/09/2024 Dysuria (ICD-10 - R30.0) abx not indicated. pt and agreeable. we discussed saul care 01/09/2024 Other fatigue (ICD-10 - R53.83) 03/26/2024 Other secondary hypertension (ICD-10 - I15.8) 05/16/2024 Dysuria (ICD-10 - R30.0) 05/16/2024 Acute UTI (ICD-10 - N39.0) 05/30/2024 Acute vaginitis (ICD-10 - N76.0) resolved. f/u prn 09/24/2024 Hypertensive heart disease with heart failure (ICD-10 - I11.0) 09/25/2024 Hypothyroidism, unspecified type (ICD-10 - E03.9) 03/27/2024 Hypertensive heart disease with heart failure (ICD-10 - I11.0) f/u [facility] 03/27/2024 Heart failure, unspecified HF chronicity, unspecified heart failure type (ICD-10 - I50.9) f/u [facility] 05/20/2024 Acute UTI (ICD-10 - N39.0) 05/30/2024 Heart murmur (ICD-10 - R01.1) f/u cardiology 10/04/2024 Hallucinations, unspecified (ICD-10 - R44.3) 10/04/2024 Acute UTI (ICD-10 - N39.0) 10/04/2024 Hypertensive heart disease with heart failure (ICD-10 - I11.0) 05/30/2024 Seborrheic keratoses (ICD-10 - L82.1) reassurance, Seborrheic Keratosis: Care Instructions material was printed 09/25/2024 Hypertensive heart disease with heart failure (ICD-10 - I11.0) 05/16/2024 Urinary urgency (ICD-10 - R39.15) 03/26/2024 Other fatigue (ICD-10 - R53.83) 03/27/2024 Situational depression (ICD-10 - F43.21) rx not indicated. she is trying to get moved closer to family 03/27/2024 Post-menopausal (ICD-10 - Z78.0) 05/16/2024 Vaginal discharge (ICD-10 - N89.8) Call or return if worsening or not improving. 09/25/2024 Heart failure, unspecified HF chronicity, unspecified heart failure type (ICD-10 - I50.9) 09/25/2024 Acute foreign body of left ear canal, initial encounter (ICD-10 - T16.2XXA) 03/27/2024 Hypothyroidism, unspecified type (ICD-10 - E03.9) 09/25/2024 Intertrigo (ICD-10 - L30.4) 09/25/2024 Seborrheic dermatitis (ICD-10 - L21.9) 03/27/2024 Heart murmur (ICD-10 - R01.1) f/u [facility] 03/27/2024 Other fatigue (ICD-10 - R53.83) 03/27/2024 Aortic valve replaced (ICD-10 - Z95.2) 05/16/2024 Other Return to clini c 2 weeks. If vaginal discharge persist. We will do pelvic exam at that time. She is agreeable with plan of care 03/27/2024 Other Preventing Falls: Care Instructions material was printed Care Coordination Assessment completed, signed and dated by provider during visit. Plan Of Treatment Pending Test Test Name Order Date Urine Dipstick Test 08/09/2023 URINALYSIS, COMPLETE (1645) 05/16/2024 Next Appt Details Provider Name:Radha Gustafson , 12/26/2024 08:30:00 AM, [address], [phone], Provider Name:Radha Ernst , 01/02/2025 02:00:00 PM, [address], [facility], [place], [address], Insurance Providers Payer Name Payer Address Payer Phone Subscriber Number Group Number Insured Name Patient Relationship to Insured Coverage Start Date Coverage End Date [employer] [address] CRIS Leonardo [id number] Michelle Vera Self - patient is the insured Medical (General) History Medical History History ICD Code HTN AORTIC VALVE REPLACEMENT (po rcine) 2011, [place]. HAS APPT DR RODRIGUEZ 06/2022, PT CANCELLED HYPOTHYROIDISM RIGHT HAND DOESN'T WORK WELL ...[facility] IN [place], NORMAL MRI. MUSCLE RELAXER HELPS AT COLITIS SUMMER 2021...DIDN'T KEEP COLONO SCOPY APPT. NORMAL COLONOSCOPY 2017. RECOMMEND REPEA T 2022 DEXA; NEVER DONE RIGHT HAND WEAKNESS , DECREA SED COORDINATION. HAD NEURO CONSULT A FEW YEARS AGO. NO DX GIVEN aneurysm repair at time of valve replace ment Surgical History Surgery Date(Month/Year) AORTIC VALVE REPLACEMENT 2011 THORACIC ANEURYSM REPAIR 2012 CATARACT SURGERY , DR THURMAN 2021 BASAL CELL CANCER FACE CHOLECYSTECTOMY LUMPECTOMY
--- NOTE | 2024-12-14 22:26 | CTR_ITS ---
PROCEDURE INFORMATION: Exam: CT Head Without Contrast Exam date and time: 12/14/2024 10:36 PM Age: 74 years old Clinical indication: Injury or trauma; Fall; Blunt trauma (contusions or hematomas); Patient fell face first chasing after a dog and struck frontal on a rock on ground. Lacearation to frontal scalp. ; Additional info: Fall with laceration TECHNIQUE: Imaging protocol: Computed tomography of the head without contrast. Radiation optimization: All CT scans at this facility use at least one of these dose optimization techniques: automated exposure control; mA and/or kV adjustment per patient size (includes targeted exams where dose is matched to clinical indication); or iterative reconstruction. COMPARISON: No relevant prior studies available. RADIATION DOSE METRICS: Total DLP (mGy-cm): 1208.28 FINDINGS: Brain: Allowing from some artifact from the bone of the inner table of the frontal calvarium, no definite acute hemorrhage, mass, or extra-axial fluid collection is identified. No midline shift. No evidence of infarction. Cerebral ventricles: No hydrocephalus. Paranasal sinuses: Small right frontal sinus fluid. Mastoid air cells: Mastoid air cells are grossly clear. Bones: Calvarium appears intact. Soft tissues: Frontal scalp swelling. CT/CT head wo con* [id number] IMPRESSION: Allowing for artifact, no acute intracranial abnormality is identified.
--- NOTE | 2024-12-14 22:26 | CTR_ITS ---
PROCEDURE INFORMATION: Exam: CT Cervical Spine Without Contrast Exam date and time: 12/14/2024 10:39 PM Age: 74 years old Clinical indication: Injury or trauma; Fall; Blunt trauma; Patient fell face first chasing after a dog and struck frontal on a rock on ground. Lacearation to frontal scalp. TECHNIQUE: Imaging protocol: Computed tomography of the cervical spine without contrast. Radiation optimization: All CT scans at this facility use at least one of these dose optimization techniques: automated exposure control; mA and/or kV adjustment per patient size (includes targeted exams where dose is matched to clinical indication); or iterative reconstruction. COMPARISON: CT head wo con* [id number] 12/14/2024 10:36 PM RADIATION DOSE METRICS: Total DLP (mGy-cm): 150.67 FINDINGS: Bones: No acute fracture of the cervical spine. Normal alignment and curvature. Mild multilevel degenerative change primarily anterior osteophytosis and dorsal spondylosis at C5-C6 and C6-C7. No severe spinal canal stenosis. Multilevel facet arthropathy bilaterally. Lungs: Lung apices reveal mild right apical scarring and emphysematous changes bilaterally. Soft tissues: Unremarkable. CT/CT cervical spin wo con* [id number] IMPRESSION: No acute trauma to the cervical spine is identified.
[2024-12-14 23:01] VITALS: BP 141/73; RESP 16; O2SAT 96
[2024-12-14 23:10] LABS: Hematocrit 33.0 % (36-47); Hemoglobin 10.80 g/dL (11.27-16.99); Mean Corpuscular HGB Conc 32.7 g/dL (30-55); Mean Corpuscular Hemoglobin 30.1 pg (27-33); Mean Corpuscular Volume 91.9 fl (85-98); Nucleated Red Blood Cells % 0 %; Platelet Count 138 10^3/cmm (157-399); Red Blood Count 3.59 10^6/uL (3.85-5.65); White Blood Count 5.07 10^3/uL (3.29-11.43)
[2024-12-14 23:23] LABS: Alanine Aminotransferase 11 U/L (0-33); Albumin Level 3.7 g/dL (3.5-5.2); Alkaline Phosphatase 63 U/L (35-105); Anion Gap 12.5 (5-19); Aspartate Amino Transferase 22 U/L (0-32); Blood Urea Nitrogen 5 mg/dL (8-23); Calcium 9.2 mg/dL (8.5-10.5); Carbon Dioxide 28 mmol/L (22-29); Chloride 101 mmol/L (98-107); Creatinine Clr Calc Pharmacy 55.3610; Globulin 2.6 g/dL (1.3-4.6); Glucose 97 mg/dL (65-115); Osmolality Calculated 283 mOsm/kg (285-295); Potassium 3.5 mmol/L (3.5-5.1); Sodium 138 mmol/L (136-145); Total Protein 6.3 g/dL (6.6-8.7)
--- NOTE | 2024-12-14 23:52 | ED_ITS ---
HPI - Fall 2 General: Chief Complaint: Fall Stated Complaint: fall, heah injury Time Seen by Provider: 12/14/24 22:21 History of Present Illness: Walking into the house, tripped, fell forward, on rocks. No LOC. Anticoagulation: Only baby aspirin. No AC. heard patient start to trip and turned around to see her fall, directly on the rocks. EMS was called. This occurred just prior to arrival. She has a laceration in her right superior frontal area. She denied any blurry vision. No dysphagia. No sensation changes. No unilateral weaknesses. No recent dysuria. She is chronically on hydrochlorothiazide. Associated symptoms-after fall: Reports headache(s); Denies abdominal pain, chest pain, difficulty walking or neck pain Related Data Home Medications ?Medication ?Instructions ?Recorded ?Confirmed aspirin 81 mg tablet,delayed 81 mg PO DAILY 03/19/21 1 release (Adult Aspirin Regimen) Previous Rx's ?Medication ?Instructions ?Recorded cetirizine 10 mg capsule (All Day 10 mg PO DAILY PRN A LLERGIES #30 06/07/22 Allergy (cetirizine)) caps cholecalciferol (vitamin D3) 125 125 mcg PO DAILY #90 caps 06/07/22 mcg (5,000 unit) capsule ciprofloxacin HCl 500 mg tablet 500 mg PO Q12H #14 tab s 06/07/22 (Cipro) cyclobenzaprine 10 mg tablet See Rx Instructions .Rout e 06/07/22 .COMPLEX #30 tabs famotidine 40 mg tablet 40 mg PO DAILY #90 tabs 05/20 03/11 hydrochlorothiazide 25 mg tablet 25 mg PO QAM #90 tabs 06/07/22 metoprolol tartrate 25 mg tablet 25 mg PO BID #180 tab s 06/07/22 potassium chloride 20 mEq See Rx Instructions .Route 1 08/08/21 tablet,extended release .COMPLEX #30 tabs meclizine 25 mg tablet 25 mg PO DAILY PRN Dizziness #30 07/05/22 tabs levothyroxine 75 mcg tablet See Rx Instructions .Route 02/17/23 .COMPLEX #90 tabs lisinopril 40 mg tablet See Rx Instructions .Route 1 .COMPLEX #90 tabs cephalexin 500 mg capsule 500 mg PO BID 3 days #6 caps 12/14/24 Allergies Allergy/AdvReac Type Severity Reaction Status Date / Time nitrofurantoin (From Allergy ALGY-Anaphy Verified 04/13/22 10:55 Macrobid) laxis Penicillins Allergy ADR-Faintin Verified 04/13/22 10:55 g Review of Systems 2 General: Reports: 10 or more systems reviewed and unremarkable except in HPI and below Const: Denies: fever(s) or chills Eyes: Denies: change in vision or blurry vision Card: Denies: chest pain or palpitations Resp: Denies: dyspnea or productive cough GI: Denies: abdominal pain, nausea or vomiting Musc: Reports: joint pain and joint swelling; Denies: neck pain, back pain or extremity pain Neuro: Reports: headache(s); Denies: numbness in extremities, weakness in extremities, sensory changes, lack of coordination or difficulty walking Psych: Denies: anxiety or depression Anupam/Lymph: Denies: easy bruising or easy bleeding PFSH ED 2 PFSH: Medical History History of skin cancer Hypertension Hypothyroidism Surgical History History of cholecystectomy History of heart surgery Social History Smoking and tobacco/nicotine status: former use of tobacco/nicotine Alcohol intake: never Substance/Drug Use: never Physical Exam 2 Const: COMMON NORMALS: no acute distress, average body habitus and patient oriented x3 GENERAL APPEARANCE: cooperative HENMT: HEAD & SCALP: laceration (right superior frontal ) HEAD IMAGES: 1. laceration Eye: COMMON NORMALS: Equal, round and reactive pupils present, EOMs intact bilaterally and conjunctivae normal GENERAL EYE: appearance normal, both eyes and all related structures and normal light reflex VISUAL ACUITY: Yes acuity normal CONJUNCTIVA: Yes conjunctivae normal SCLERA: sclerae normal P UPIL: Yes Equal, round and reactive pupils present DIRECT OPHTHALMOSCOPY: Yes normal light reflex Lymph: LYMPHATIC: no lymphadenopathy noted Chest: COMMONS NORMALS: normal inspection of the chest and normal palpation of entire chest wall Resp: COMMON NORMALS: normal respiratory effort, No retractions, No use of accessory muscles and clear to auscultation bilaterally AUSCULTATION: clear to auscultation bilaterally Cardio: COMMON NORMALS: regular rate and regular rhythm RATE: regular rate RHYTHM: regular rhythm GI: COMMON NORMALS: Normal to inspection, nondistended, normoactive bowel sounds present, Soft to palpation and non-tender PALPATION: Yes Soft to palpation : COMMON NORMALS: Yes no CVA tenderness BLADDER/KIDNEY EXAM: Yes no CVA tenderness Back/Pelvis: COMMON NORMALS: no CVA tenderness Extremity: COMMON NORMALS: normal to inspection, full ROM and capillary refill normal Neuro: COMMON NORMALS: patient oriented x3 Psych: COMMON NORMALS: mental status grossly normal and Normal thought process present THOUGHT PROCESS: Normal thought process present Procedures Laceration Laceration 1: Site: scalp Side (If applicable): right Size (cm): 7 Description: linear and irregular Depth: simple, single layer and involves muscle layer Local Anesthetic: lidocaine 1% Amount of anesthesia used (mL): 8 Pre-repair: wound explored, irrigated extensively and deep structures intact Skin layer closed with: other (staple) Size (cm): other (staple) Number of sutures: 8 Course 2 Reevaluation(s): Reevaluation #1: Patient was walked by staff however was unsteady, legs shaking, and did not appear to be safe for discharge. notes this is not her baseline. She does not typically have issues with ambulation. Discharge canceled and discussed with on-call hospitalist Consultations: Consultation #1: Hospitalist graciously accepted as observation admission for PT/OT. Discussed with Dr. Rea Vital Signs: Vital signs: Vital Signs Temperature 97.6 F 12/14/24 22:15 Pulse Rate 95 12/15/24 01:34 Respiratory Rate 18 12/15/24 01:34 Blood Pressure 145/100 12/15/24 01:34 Pulse Oximetry 96 12/15/24 01:34 Oxygen Delivery Me thod Room Air 12/14/24 22:15 MDM - Fall Medical Decision Making Patient is a 74-year-old female that tripped going down her sidewalk, and hit rocks to her head. Laboratory data is essentially without concern except for decrease in her hemoglobin of 12.23 years ago to 10.8 currently, and decreased platelets in normal range previously to 138. Urine analysis shows minimal WBCs and nitrite negative. Gait instability is unknown, however patient did trip and this was not a syncopal event. Discussed with Dr. Gonzalez, that will place in observation for OT/PT consultation for safety Lab Data 12/14/24 22:50 12/14/24 22:50 Radiology Impressions Cervical Spine CT 12/14/24 22:26 IMPRESSION: No acute trauma to the cervical spine is identified. Head CT 12/14/24 22: IMPRESSION: Allowing for artifact, no acute intracranial abnormality is identified. Laboratory Results WBC 5.07 10^3/uL (3.29-11.43) 12/14/24 22:50 RBC 3.59 10^6/uL (3.85-5.65) L 12/14/24 22:50 Hgb 10.80 g/dL (11.27-16.99) L 12/14/24 22:50 Hct 33.0 % (36-47) L 12/14/24 22:50 MCV 91.9 fl (85-98) 12/14/24 22:50 MCH 30.1 pg (27-33) 12/14/24 22:50 MCHC 32.7 g/dL (30-55) 12/14/24 22:50 RDW 12.8 % (12.1-15.1) 12/14/24 22:50 Plt Count 138 10^3/cmm (157-399) L 12/14/24 22:50 MPV 11.6 fL (7.4-10.4) H 12/14/24 22:50 Neut % (Auto) 54.0 % 12/14/24 22:50 Lymph % (Auto) 33.1 % 12/14/24 22:50 Tripp % (Auto) 10.7 % 12/14/24 22:50 Eos % (Auto) 1.4 % 12/14/24 22:50 Baso % (Auto) 0.4 % 12/14/24 22:50 Neut # (Auto) 2.74 10^3/uL (1.8-7.7) 12/14/24 22:50 Lymph # (Auto) 1.7 10^3/uL (0.8-4.8) 12/14/24 22:50 Tripp # (Auto) 0.5 10^3/uL (0.2-0.9) 12/14/24 22:50 Eos # (Auto) 0.1 10^3/uL (0.0-0.8) 12/14/24 22:50 Baso # (Auto) 0.0 10^3/uL (0.0-0.1) 12/14/24 22:50 Nucleated RBC % (auto) 0 % 12/14/24 22:50 Nucleated RBCs # 0.0 /100WBC 12/14/24 22:50 Sodium 138 mmol/L (136-145) 12/14/24 22:50 Potassium 3.5 mmol/L (3.5-5.1) 12/14/24 22:50 Chloride 101 mmol/L (98-107) 12/14/24 22:50 Carbon Dioxide 28 mmol/L (22-29) 12/14/24 22:50 Anion Gap 12.5 (5-19) 12/14/24 22:50 BUN 5 mg/dL (8-23) L 12/14/24 22:50 Creatinine 0.6 mg/dL (0.5-0.9) 12/14/24 22:50 GFR Calculation Not Reportable 12/14/24 22:50 Glucose 97 mg/dL (65-115) 12/14/24 22:50 Calculated Osmolality 283 mOsm/kg (285-295) L 12/14/24 22:50 Calcium 9.2 mg/dL (8.5-10.5) 12/14/24 22:50 Total Bilirubin 0.5 mg/dL (0.15-1.2) 12/14/24 22:50 AST 22 U/L (0-32) 12/14/24 22:50 ALT 11 U/L (0-33) 12/14/24 22:50 Alkaline Phosphatase 63 U/L (35-105) 12/14/24 22:50 Total Protein 6.3 g/dL (6.6-8.7) L 12/14/24 22:50 Albumin 3.7 g/dL (3.5-5.2) 12/14/24 22:50 Globulin 2.6 g/dL (1.3-4.6) 12/14/24 22:50 Urine Color Yellow (Yellow) 12/15/24 01:14 Urine Appearance Cloudy (CLEAR) A 12/15/24 01:14 Urine pH 6.0 (5-7) 12/15/24 01:14 Ur Specific [place] 1.007 (1.005-1.030) 12/15/24 01:14 Urine Protein Negative (Negative) 12/15/24 01:14 Urine Glucose (UA) Negative (Normal) 12/15/24 01:14 Urine Ketones Negative (Negative) 12/15/24 01:14 Urine Blood 2+ (Negative) A 12/15/24 01:14 Urine Nitrate Negative (Negative) 12/15/24 01:14 Urine Bilirubin Negative (Negative) 12/15/24 01:14 Urine Urobilinogen 1.0 mg/dL (Negative) 12/15/24 01:14 Ur Leukocyte Esterase 3+ (Negative) A 12/15/24 01:14 Urine RBC 11-20 /hpf (0-2) H 12/15/24 01:14 Urine WBC 11-20 /hpf (0-5) H 12/15/24 01:14 Ur Squamous Epith Cells 6-10 /hpf (0-5) 12/15/24 01:14 Amorphous Sediment Not Reportable 12/15/24 01:14 Urine Bacteria Trace /hpf (NONE) 12/15/24 01:14 Hyaline Casts 0.81 /lpf 12/15/24 01:14 All radiology interpretation(s) finalized by discharge ED provider radiology interpretation(s): no acute Discharge Plan Discharge Patient Disposition: Placed in Observation Clinical Impression: Laceration of scalp, Fall against sharp object, Difficulty in walking Discharge Diet: Usual diet Discharge Activity: Resume usual activity Coding Level of Care Code ED Pv Design And Installation Technician for Joe Pace
[2024-12-15] VITALS (13 sets, daily range): BP systolic 127–156; BP diastolic 74–104; PULSE 75–97; RESP 16–18; TEMP 36.4–37.4; O2SAT 94–96; BMI 23.2
[2024-12-15 01:24] LABS: Glucose Urine UA Negative (Normal); Nitrate Urine Negative (Negative); Specific Gravity, Urine 1.007 (1.005-1.030)
[2024-12-15 01:29] LABS: Add Urine Microscopic? YES
[2024-12-15 02:58] LABS: Magnesium 1.9 mg/dL (1.7-2.3)
--- NOTE | 2024-12-15 03:42 | P.HP_ITS ---
Providers/Chief Complaint 2 Admitting Physician: Daniel Gonzalez MD Primary Care Provider: AVIS Saucedo Chief Complaint: fall, head injury History of Present Illness Michelle Vera is a 74 year old female came in with head laceration which has been repaired. She is referred for admission due to unsteady gait. She denies syncope and states she tripped in the grass but does have a remote history of dizziness 2021. She was wearing flip-flops today and noted that she was stumbling backwards to try and Walking into the house, tripped, fell forward, on rocks. No LOC. Anticoagulation: Only baby aspirin. No AC. heard patient start to trip and turned around to see., directly on the rocks. EMS was called. This occurred just prior to arrival. She has a laceration in her right superior frontal area. She denied any blurry vision. No dysphagia. No sensation changes. No unilateral weaknesses. No recent dysuria. She is chronically on hydrochlorothiazide. CT of the head was negative for bleed and CT of the neck was negative for fracture. Patient has history of aortic valve replacement. Review of Systems 2 Narrative: General No fevers chills weight has been stable Cardiovascular no chest pain no palpitations she has some dizziness but not today at the time of her fall. 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 She states is a lot at discharge but no foul odor Neuro negative for headache currently. She denies seizures by history. She has recently been on baby aspirin for mild headaches which works. Patient has had tremor for 4 years of the right hand she has had workup including EEG and MRI which were okay. Her right leg she cannot lift as high as the left so she has put her right pant leg on first Medications/Allergies Home Medications ?Medication ?Instructions ?Recorded ?Confirmed ?Last Taken ?Type aspirin 81 mg tablet,delayed 81 mg PO DAILY 03/19/21 1 07/31/21 History release (Adult Aspirin Regimen) cetirizine 10 mg capsule (All Day 10 mg PO DAILY PRN A LLERGIES #30 06/07/22 Unknown Rx Allergy (cetirizine)) caps cholecalciferol (vitamin D3) 125 125 mcg PO DAILY #90 caps 06/07/22 Unknown Rx mcg (5,000 unit) capsule ciprofloxacin HCl 500 mg tablet 500 mg PO Q12H #14 tab s 06/07/22 Unknown Rx (Cipro) cyclobenzaprine 10 mg tablet See Rx Instructions .Rout e 06/07/22 Unknown Rx .COMPLEX #30 tabs famotidine 40 mg tablet 40 mg PO DAILY #90 tabs 05/20 03/11 Unknown Rx hydrochlorothiazide 25 mg tablet 25 mg PO QAM #90 tabs 06/07/22 Unknown Rx metoprolol tartrate 25 mg tablet 25 mg PO BID #180 tab s 06/07/22 Unknown Rx potassium chloride 20 mEq See Rx Instructions .Route 1 08/08/21 Unknown Rx tablet,extended release .COMPLEX #30 tabs meclizine 25 mg tablet 25 mg PO DAILY PRN Dizziness #30 07/05/22 Unknown Rx tabs levothyroxine 75 mcg tablet See Rx Instructions .Route 02/17/23 Unknown Rx .COMPLEX #90 tabs lisinopril 40 mg tablet See Rx Instructions .Route 1 Unknown Rx .COMPLEX #90 tabs cephalexin 500 mg capsule 500 mg PO BID 3 days #6 caps 12/14/24 Unknown Rx Allergies Allergy/AdvReac Type Severity Reaction Status Date / Time nitrofurantoin (From Allergy ALGY-Anaphy Verified 04/13/22 10:55 Macrobid) laxis Penicillins Allergy ADR-Faintin Verified 04/13/22 10:55 g PFSH Acute 2 PFSH: Medical History History of skin cancer Hypertension Hypothyroidism Surgical History History of cholecystectomy History of heart surgery Social History (Updated 12/15/24 @ 03:50 by Daniel Gonzalez MD) Smoking and tobacco/nicotine status: former use of tobacco/nicotine Quit status (tobacco/nicotine): has quit using Year quit tobacco: 2000 Former quit date comment: Previous 1 pack/day for 30 years Alcohol intake: former Former alcohol use details: Occasional drinking in the past none now and never heavy Substance/Drug Use: never Additional social history: She wants full code as discussed with Daniel Gonzalez MD in the presence of her Jarocho on 12/15/2024 Marital status: Marital status details: [place] 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 Vitals/I&O/Wt Last Vital Signs Temp 97.6 F 12/14/24 22:15 Pulse 88 12/15/24 03:17 Resp 16 12/15/24 03:17 BP 150/104 12/15/24 03:17 Pulse Ox 94 12/15/24 03:17 O2 Del Method Room Air 12/14/24 22:15 Weight last 48 hrs Weight 63.503 kg Physical Exam 2 Narrative: General well-developed well-nourished female with right frontal parietal head lack and swelling over the right forehead and brow CV regular rate and rhythm with a 5/6 systolic ejection murmur best heard at the left sternal border radiates loudly to the upper chest and left neck less loud to the right neck Lungs clear to auscultation bilaterally Abdomen positive bowel sounds soft nontender Calves trace to 1 bilateral pretibial edema left greater than right Neuro she is alert and oriented x 3 pupils equally round and reactive to light accommodation Motor strength 5/5 bilateral ankle flexion and extension handgrips 5/5 left 5 - right finger abduction 5/5 left 4+ right biceps and triceps 5/5 left 4+ right. Patient has obvious tremor at rest and also with activity right hand Musculoskeletal left rib tenderness without crepitus at the level of the breast behind the breast and lateral Data 12/14/24 22:50 12/14/24 22:50 A&P Assessment and plan (1) Laceration of scalp: Repaired in emergency department with delfin. Will need to remove delfin in about 7 days (2) Hx of aortic valve replacement: Patient has a loud aortic murmur 04/05/2023 echo showed Normal left ventricular size and systolic function, EF 65%. Moderate left ventricular hypertrophy. Appears to have some mid cavity obstruction.Grade I/IV diastolic dysfunction (abnormal relaxation filling pattern), normal to mildly elevated filling pressures. Thickened mitral valve. Mild mitral annular calcification. Mildly increased left atrial size. The bioprosthetic valve at the aortic position appears to be well-seated. There is thickening of the leaflets. Moderately severe aortic valve stenosis with a valve area 0.95 cm squared. Peak velocity of 3.09 m/s with a peak gradient of 38.3 and a mean gradient of 20.7 mmHg. Mild to moderate tricuspid valve regurgitation. Estimated pulmonary artery peak systolic pressure 32 mmHg There is no pericardial effusion. There are no intracardiac masses. No similar previous studies are available for comparison She is due for new echo and will also have carotid Dopplers (3) Difficulty in walking: Start PT and OT. Plan Home health but may require placement for rehab (4) Tremor of right hand: Chronic and patient reports that EEG and MRI of the brain were negative (5) Hypothyroidism: TSH is due last 1 2021 locally PDMP PDMP Reviewed: Not Reviewed Attestations 2 Medical Necessity Statement*: Patient is admitted to the hospital on observation for physical therapy evaluation and echocardiogram carotids and telemetric monitoring following a fall Coding Level of Care Code Acute Code for Chg Fwd Diagnoses Laceration of scalp S01.01XA Encounter type: initial encounter Hx of aortic valve replacement Z95.2 Difficulty in walking R26.2 Tremor of right hand R25.1 Hypothyroidism, unspecified type E03.9 Hypothyroidism type: unspecified Time Spent (min) 70
--- NOTE | 2024-12-15 07:12 | PC.NURSE ---
Patient was asked by this nurse is she would like the tetanus vaccination. Patient stated she didnt know if she wanted it because of the medications she was on.
--- NOTE | 2024-12-15 08:44 | USCV_ITS ---
Michelle Vera Age: 74 Gender: F : 1950 Exam Date: 12/15/2024 10:26 Ordering Phys: Zac Palma MD Technologist: Exam Location: [facility] [place] Indication: cva BP: 120 / 70 HR: 86 Rhythm: Sinus Technical Quality: Adequate MEASUREMENTS (Male / Female) Normal Values 2D ECHO LV Diastolic Diameter PLAX 4.5 cm 4.2 - 5.9 / 3.9 - 5.3 cm IVS Diastolic Thickness 1.1 cm 0.6 - 1.0 / 0.6 - 0.9 cm IVS Systolic Thickness 1.4 cm LVPW Diastolic Thickness 1.1 cm 0.6 - 1.0 / 0.6 - 0.9 cm LVPW Systolic Thickness 1.5 cm LVOT Diameter 2.0 cm LV Ejection Fraction 2D Teich 70.7 % LV Ejection Fraction MOD 4C 59.4 % LV Ejection Fraction MOD 2C 65.4 % LV Ejection Fraction 2C AL 65.8 % LA Diameter 2.8 cm RA Systolic Volume 4C AL 28.8 ml RA Systolic Volume 4C MOD 28.0 ml Aorta at Sinotubular Diameter 2.5 cm M-MODE LA Ao Ratio MM 1.2 AV Cusp Separation MM 2.4 cm DOPPLER AV Peak Velocity 326.0 cm/s LVOT Peak Velocity 101.0 cm/s AV Area Cont Eq vti 1.2 cm squared AV Area Cont Eq pk 1.0 cm squared MV Peak Velocity 140.0 cm/s MV Area PHT 5.3 cm squared Mitral E to A Ratio 0.7 TV Peak Velocity 285.0 cm/s TR Peak Velocity 336.0 cm/s TR Peak Gradient 45.2 mmHg TV Peak E Velocity 107.0 cm/s PV Peak Velocity 114.0 cm/s FINDINGS Left Ventricle Left ventricle is normal size. LV systolic function is normal with EF of 60-65%. No regional wall motion abnormalities. Basal septal hypertrophy. Grade 1 diastolic dysfunction. Right Ventricle Normal in size and function Right Atrium Normal in size Left Atrium Dilated Mitral Valve Mild mitral annular calcification. Mild mitral regurgitation. Aortic Valve Aortic valve is thickened and calcified. Moderate aortic stenosis with aortic valve area 1.09 cm squared and mean gradient across aortic valve 20 mmHg. Tricuspid Valve Mild tricuspid regurgitation. RVSP is 45-50 mmHg. This is consistent with moderate pulmonary hypertension. Pulmonic Valve Trace pulmonic regurgitation. Pericardium Normal Aorta Normal in size IVC Not well visualized CONCLUSIONS LV systolic function is normal with EF of 60-65% Basal septal hypertrophy Grade 1 diastolic dysfunction Left atrial dilation Mild mitral regurgitation Moderate aortic stenosis with aortic valve area 1.09 cm squared and mean gradient across aortic valve 20 mmHg. Mild tricuspid regurgitation. Moderate pulmonary hypertension Trace pulmonic regurgitation Kike Cano MD (Electronically Signed) Final Date: 15 December 2024 13:44 S
--- NOTE | 2024-12-15 08:44 | USR_ITS ---
PROCEDURE INFORMATION: Exam: US Duplex Bilateral Extracranial Arteries; Complete; Carotid Arteries Exam date and time: 12/15/2024 9:11 AM Age: 74 years old Clinical indication: Injury or trauma; Fall; Other: Hilda TECHNIQUE: Imaging protocol: Real-time duplex ultrasound scan of the bilateral extracranial arteries combining du scale, color Doppler and spectral waveform analysis with image documentation. Complete exam. Exam focused on the carotid arteries. COMPARISON: CT cervical spin wo con* [id number] 12/14/2024 10:39 PM FINDINGS: Right carotid: Minimal partially calcified plaque bifurcation and proximal right ICA without evidence of flow-limiting stenosis. Right ICA PSV: 60 cm/sec. EDV: 11 Right CCA PSV: 69 cm/sec. Right ECA PSV: 57 cm/sec. Right ICA/PSV: 0.9 Left carotid: No significant plaque. Left ICA PSV: 49 cm/sec. EDV: 14 Left CCA PSV: 63 cm/sec. Left ECA PSV: 55 cm/sec. Left ICA/PSV: 0.8 Vertebral arteries:Both vertebral arteries demonstrate antegrade flow. US/CV carotid duplex BI* [id number] IMPRESSION: 1. No hemodynamically significant carotid stenosis identified. 2. Bilateral antegrade vertebral artery flow. REFERENCES: SRU CRITERIA. The degree of internal carotid artery stenosis is based on criteria defined by the Society of Radiologists in Ultrasound (SRU). Normal is no stenosis. Mild is less than 50% stenosis. Moderate is 50-69% stenosis. Severe is greater than 69% stenosis to near occlusion. Near occlusion is a markedly narrowed lumen. Total occlusion is no detectable patent lumen. Reference: Dian Jansen, et al. Carotid Artery Stenosis: Du-Scale and Doppler US Diagnosis-Society of Radiologists in Ultrasound Consensus Conference. Radiology 2003; 229:340-346.
[2024-12-15 09:45] LABS: Troponin(5th) Baseline 49 ng/L (0-10)
--- NOTE | 2024-12-15 09:45 | ECG_ITS ---
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 Measurements Intervals [place] Rate: 81 P: 43 HI: 158 QRS: -14 QRSD: 145 T: 61 QT: 413 QTc: 481 Interpretive Statements SINUS RHYTHM LEFT BUNDLE BRANCH BLOCK [120+ ms QRS DURATION, 80+ ms Q/S IN V1/V2, 85+ ms R IN I/aVL/V5/V6] No previous ECG available for comparison Electronically Signed On 12-20-2024 09:16:20 CDT by Kike Cano M.D. [id number]
[2024-12-15 10:05] LABS: Thyroid Stimulating Hormone 3.69 uIU/mL (0.27-4.20)
[2024-12-15 11:34] LABS: Troponin 5 2HR 46.83 ng/L (0-10)
--- NOTE | 2024-12-15 11:40 | ECG_ITS ---
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 Measurements Intervals [place] Rate: 80 P: 43 [place]: 167 QRS: -15 QRSD: 90 T: 18 QT: 430 QTc: 496 Interpretive Statements SINUS RHYTHM MODERATE VOLTAGE CRITERIA FOR LVH, CONSIDER NORMAL VARIANT [MEETS CRITERIA IN ONE OF: R(aVL), S(V1), R(V5), R(V5/V6)+S(V1)] MARKED T-WAVE ABNORMALITY, CONSIDER ANTERIOR ISCHEMIA [-0.5+ mV T-WAVE IN V3/V4] Compared to ECG 12/15/2024 09:45:42 T-wave abnormality now present Possible ischemia now present Left bundle-branch block no longer present Electronically Signed On 12-20-2024 09:38:30 CDT by Kike Cano M.D. [email or web address] [id number]
[2024-12-15 11:47] LABS: Troponin 5 2HR Delta -2.17 ABS# (0-10)
[2024-12-15] MEDS: ondansetron 2 mg/ML SDV 2 mL 4 MG IVP (12:47)
--- NOTE | 2024-12-15 14:46 | ECG_ITS ---
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 Measurements Intervals [place] Rate: 97 P: 50 [place]: 176 QRS: 0 QRSD: 134 T: 114 QT: 367 QTc: 466 Interpretive Statements SINUS RHYTHM LEFT BUNDLE BRANCH BLOCK [120+ ms QRS DURATION, 80+ ms Q/S IN V1/V2, 85+ ms R IN I/aVL/V5/V6] Compared to ECG 12/15/2024 11:40:47 Left bundle-branch block now present T-wave abnormality no longer present Possible ischemia no longer present Electronically Signed On 12-20-2024 09:38:19 CDT by Kike Cano M.D. [id number] [id number]
--- NOTE | 2024-12-15 15:21 | P.PN_ITS ---
Subjective 2 Subjective: Patient was seen this morning, currently alert oriented x 3, following all commands, she reports generalized weakness rather than focal weakness, no facial droop, no slurring of her words, her responses are a bit delayed, at times her answers are a bit confusing, but she gets most of the answers right her is at bedside tells me that she has not fallen in some time but she is unsteady on her feet, she does have a resting tremor he tells that she has had it for some period of time no formal diagnosis of Parkinson's disease - During my examination she does have ri ght upper extremity weakness that is limited by right shoulder stiffness - Does have some slight right lower extr emity weakness compared to the left - She denies a prior history of strokes Vitals/I&O/Wt Last Vital Signs Temp 97.8 F 12/15/24 11:28 Pulse 83 12/15/24 11:28 Resp 17 12/15/24 11:28 BP 156/90 12/15/24 11:28 Pulse Ox 96 12/15/24 11:28 O2 Del Method Room Air 12/15/24 11:28 12/15/24 12/15/24 12/15/24 06:59 14:59 22:59 Intake Total 960 / 960 Balance 960 / 960 Weight last 48 hrs Weight 59.557 kg Weight 59.557 kg Weight 63.503 kg Physical Exam 2 Const: COMMON NORMALS: no acute distress and patient oriented x3 OTHER: Multiple bruising throughout the scalp Laceration present Resp: COMMON NORMALS: normal respiratory effort, No retractions, No use of accessory muscles and clear to auscultation bilaterally AUSCULTATION: clear to auscultation bilaterally Cardio: COMMON NORMALS: regular rate, regular rhythm, S1 normal heart sound present and S2 normal heart sound present RATE: regular rate RHYTHM: r egular rhythm HEART SOUNDS: S1 normal heart sound present and S2 normal heart sound present GI: COMMON NORMALS: Normal to inspection, nondistended, normoactive bowel sounds present and non-tender Extremity: COMMON NORMALS: no pedal edema Neuro: COMMON NORMALS: patient oriented x3, CN's II-XII intact bilaterally and moves all extremities Psych: COMMON NORMALS: mental status grossly normal Data 12/14/24 22:50 12/14/24 22:50 A&P Assessment and plan (1) Laceration of scalp: - Will need to follow-up with primary care provider as outpatient (2) Hx of aortic valve replacement: (3) Difficulty in walking: PT OT (4) Tremor of right hand: (5) Hypothyroidism: Continue levothyroxine Plan Fall - No strokelike symptoms - More global weakness, but does have some right sided weakness compared to the left -Possible CVA?, Out of tPA window, will check carotid artery ultrasound -CT head within normal limits -Continue aspirin, statin -Will consider MRI of the brain based on clinical progress - Will check orthostatic vitals - Is on metoprolol, lisinopril, hydrochlorothiazide - Carotid artery ultrasound - Cardiac echo - Telemetry monitoring - Serial EKGs, serial troponins, telemetry monitoring - Head CT Slight right upper right lower extremity weakness compared to the left - Possible CVA? - CT head within normal limits - Carotid artery ultrasound - Will monitor blood pressure closely - Cardiac echo - Telemetry monitoring - Neurochecks - NIH stroke scale - PT OT Right shoulder stiffness x-ray right shoulder Tremor - Seems like a parkinsonian tremor, PT OT UTI ciprofloxacin Full code Lovenox for DVT prophylaxis PDMP PDMP Reviewed: Not Reviewed Attestations 2 Medical Necessity Statement*: Patient requires hospitalization for fall, right sided weakness, possible CVA, right shoulder stiffness, UTI Diagnoses Laceration of scalp S01.01XA Encounter type: initial encounter Hx of aortic valve replacement Z95.2 Difficulty in walking R26.2 Tremor of right hand R25.1 Hypothyroidism, unspecified type E03.9 Hypothyroidism type: unspecified
--- NOTE | 2024-12-15 15:25 | XRR_ITS ---
PROCEDURE INFORMATION: Exam: XR Right Shoulder Exam date and time: 12/15/2024 6:10 PM Age: 74 years old Clinical indication: Other: Stiffness; Additional info: Stifness TECHNIQUE: Imaging protocol: Radiologic exam of the right shoulder. Views: 2 or more views. COMPARISON: CT cervical spin wo con* [id number] 12/14/2024 10:39 PM FINDINGS: Bones/joints: Glenohumeral and acromioclavicular alignment is normal. No significant osteophytes. No acute fracture. Soft tissues: Visible soft tissues are unremarkable. XR/XR shoulder RT min 2V* [id number] IMPRESSION: No acute findings.
[2024-12-15 16:20] LABS: Troponin 5 6HR 34.19 ng/L (0-10)
[2024-12-15 16:29] LABS: Troponin 5 6HR Delta -14.81 ng/L (0-12)
--- NOTE | 2024-12-15 16:30 | PC.NURSE ---
Patients right arm has super strong tremors. Patient holds arm out but tremors/jerking is so bad. Does not have a drift in right arm.
[2024-12-16] VITALS (59 sets, daily range): BP systolic 104–171; BP diastolic 64–98; PULSE 70–134; RESP 16–28; TEMP 36.6–37.7; O2SAT 89–95
[2024-12-16 03:48] LABS: Hematocrit 34.5 % (36-47); Hemoglobin 11.50 g/dL (11.27-16.99); Mean Corpuscular HGB Conc 33.3 g/dL (30-55); Mean Corpuscular Hemoglobin 29.8 pg (27-33); Mean Corpuscular Volume 89.4 fl (85-98); Nucleated Red Blood Cells % 0 %; Platelet Count 142 10^3/cmm (157-399); Red Blood Count 3.86 10^6/uL (3.85-5.65); White Blood Count 5.84 10^3/uL (3.29-11.43)
[2024-12-16 04:13] LABS: Anion Gap 13.3 (5-19); Blood Urea Nitrogen 5 mg/dL (8-23); Calcium 8.7 mg/dL (8.5-10.5); Carbon Dioxide 25 mmol/L (22-29); Chloride 104 mmol/L (98-107); Creatinine Clr Calc Pharmacy 53.8237; Glucose 115 mg/dL (65-115); Osmolality Calculated 286 mOsm/kg (285-295); Potassium 3.3 mmol/L (3.5-5.1); Sodium 139 mmol/L (136-145); Thyroid Stimulating Hormone 2.53 uIU/mL (0.27-4.20)
--- NOTE | 2024-12-16 13:24 | P.PN_ITS ---
Subjective 2 Subjective: Patient was seen this morning, she denies any fevers, no chills, no cough, does report generalized weakness, but does not report more weakness on the right side compared to the left, no facial droop no slurring words, no visual deficits Vitals/I&O/Wt Last Vital Signs Temp 98.2 F 12/16/24 11:26 Pulse 77 12/16/24 11:26 Resp 18 12/16/24 11:26 BP 134/75 12/16/24 11:26 Pulse Ox 92 12/16/24 11:26 O2 Del Method Room Air 12/16/24 11:26 12/15/24 12/16/24 12/16/24 22:59 06:59 14:59 Intake Total 480 / 1440 240 / 1680 480 / 480 Output Total 250 / 250 Balance 480 / 1440 240 / 1680 230 / 230 Weight last 48 hrs Weight 59.421 kg Weight 59.557 kg Weight 59.557 kg Weight 63.503 kg Physical Exam 2 Const: COMMON NORMALS: no acute distress and patient oriented x3 Eye: COMMON NORMALS: Equal, round and reactive pupils present and EOMs intact bilaterally PUPIL: Yes Equal, round and reactive pupils present OTHER: Multiple bruising, nasal bridge, above left eye Neck/C-Spine: COMMON NORMALS: no JVD Resp: COMMON NORMALS: normal respiratory effort, No retractions, No use of accessory muscles and clear to auscultation bilaterally AUSCULTATION: clear to auscultation bilaterally Cardio: COMMON NORMALS: no JVD, regular rate, regular rhythm, S1 normal heart sound present and S2 normal heart sound present RATE: regular rate RHYTHM: regular rhythm HEART SOUNDS: S1 normal heart sound present and S2 normal heart sound present GI: COMMON NORMALS: Normal to inspection, nondistended, normoactive bowel sounds present and non-tender Extremity: COMMON NORMALS: no pedal edema Neuro: COMMON NORMALS: patient oriented x3 OTHER: Right upper extremity strength 4 out of 5, right lower extremity take 4-5 Right upper extremity has a tremor in place Cerebellar signs positive on the right Does have word finding difficulty at times Psych: COMMON NORMALS: mental status grossly normal Data 12/16/24 03:25 12/16/24 03:25 A&P Assessment and plan (1) Laceration of scalp: - Will need to follow-up with primary care provider as outpatient (2) Hx of aortic valve replacement: (3) Difficulty in walking: PT OT (4) Tremor of right hand: (5) Hypothyroidism: Continue levothyroxine (6) Acute CVA (cerebrovascular accident): Plan Fall - Tripped over a rock - More global weakness initially, but does have some right sided weakness compared to the left - Acute CVA?, Out of tPA window, carotid artery ultrasound no acute findings -CT head within normal limits -Continue aspirin, statin - MRI brain ordered - Systolic vitals within normal limits - Is on metoprolol, lisinopril, hydrochlorothiazide - Carotid artery ultrasound no acute findings - Cardiac echo as below - Telemetry monitoring - Serial EKGs, serial troponins, telemetry monitoring - Head CT Slight right upper right lower extremity weakness compared to the left -Does have slight right upper right lower extremity weakness compared to the left, no facial droop, no slurring of words, no visual deficits, does have some slight word finding difficulty - Acute CVA - CT head within normal limits - Carotid artery ultrasound no acute findings - Will monitor blood pressure closely - Cardiac echo CONCLUSIONS LV systolic function is normal with EF of 60-65% Basal septal hypertrophy Grade 1 diastolic dysfunction Left atrial dilation Mild mitral regurgitation Moderate aortic stenosis with aortic valve area 1.09 cm squared and mean gradient across aortic valve 20 mmHg. Mild tricuspid regurgitation. Moderate pulmonary hypertension Trace pulmonic regurgitation - Telemetry monitoring - Neurochecks - NIH stroke scale - PT OT Aortic valve stenosis, moderate Right shoulder stiffness x-ray right shoulder, no acute fracture Tremor - Seems like a parkinsonian tremor, PT OT UTI ciprofloxacin Full code Lovenox for DVT prophylaxis PDMP PDMP Reviewed: Not Reviewed Attestations 2 Medical Necessity Statement*: Patient requires hospitalization for fall, acute CVA, aortic valve stenosis Diagnoses Laceration of scalp S01.01XA Encounter type: initial encounter Hx of aortic valve replacement Z95.2 Difficulty in walking R26.2 Tremor of right hand R25.1 Hypothyroidism, unspecified type E03.9 Hypothyroidism type: unspecified Acute CVA (cerebrovascular accident) I63.9
--- NOTE | 2024-12-16 20:50 | CTR_ITS ---
PROCEDURE INFORMATION: Exam: CT Head Without Contrast Exam date and time: 12/16/2024 9:04 PM Age: 74 years old Clinical indication: Stroke-like symptoms; Altered mental status/memory loss; Left facial droop; Additional info: Stroke alert TECHNIQUE: Imaging protocol: Computed tomography of the head without contrast. Radiation optimization: All CT scans at this facility use at least one of these dose optimization techniques: automated exposure control; mA and/or kV adjustment per patient size (includes targeted exams where dose is matched to clinical indication); or iterative reconstruction. Other technique: STROKE PROTOCOL was implemented. COMPARISON: CT head wo con* [id number] 12/14/2024 10:36 PM RADIATION DOSE METRICS: Total DLP (mGy-cm): 1778.18 FINDINGS: Limitations: The head is malpositioned in the CT scanner which creates streak artifact from the skull base. Brain: Moderate diffuse cortical volume loss. Moderate hypodensities in supratentorial periventricular and subcortical white matter, consistent with microangiopathy. No intracranial hemorrhage. Chronic lacunar infarct in the left caudate head. Cerebral ventricles: No ventriculomegaly. Paranasal sinuses: Mild mucosal thickening and small fluid level in the right frontal sinus. The other sinuses are clear. Mastoid air cells: Sclerotic right mastoid. The left mastoid air cells are clear. Orbital cavities: Prior cataract surgery. Bones: Unremarkable. No acute fracture. Soft tissues: Skin delfin in the superior right frontoparietal scalp. Superior right frontoparietal scalp hematoma. Vasculature: No hyperdense artery. CT/CT head wo con* [id number] IMPRESSION: 1. No fracture or intracranial hemorrhage. 2. Superior right frontoparietal scalp hematoma and skin delfin. ASSESSMENT: ASPECTS (Pat Stroke Program Early CT Score) is 10.
--- NOTE | 2024-12-16 20:51 | ECG_ITS ---
[employer] [facility] Test Date: 2024-12-16 Pat Name: Michelle Vera Department: Room: 260 Gender: Female Addiction Social Worker: : 1950 Requested By: Daniel Ernst Order Number: [id number] Marquez MD: Kike Cano M.D. Measurements Intervals [place] Rate: 138 P: -13 [place]: 128 QRS: -12 QRSD: 122 T: 124 QT: 294 QTc: 446 Interpretive Statements SINUS TACHYCARDIA LEFT BUNDLE BRANCH BLOCK [120+ ms QRS DURATION, 80+ ms Q/S IN V1/V2, 85+ ms R IN I/aVL/V5/V6] Compared to ECG 12/15/2024 15:15:41 Sinus rhythm no longer present Electronically Signed On 12-20-2024 09:10:32 CDT by Kike Cano M.D. [email or web address]
--- NOTE | 2024-12-16 21:06 | P.PNCC_ITS ---
Stroke Alert Activation ED Arrival Date: 12/16/24 ED Arrival Time: 08:47 ED Physican at Bedside: 09:00 Last Known Normal/at Baseline: < 1 hour ago Other Last Known Well Infomation: 74 year old woman admitted with global w eakness after she fell and hit her head. No focal findings by the ER doc or admission but Dr. Palma documented right sided weakness out of the window for thrombolytics. Nursing reports she was walking and talking, said her birthdate and spoke clearly less than an hour ago, then when they checked on her at 2049 she was flaccid and unable to answer. Stroke alert called. I was taken to the room by the nurse on and observed the patient flaccid with head to the left, not moving any of her [address] Gonzalez was soon present and did a neuro exam while patient being prepared for transfer to CT. He admitted the patient 2 days ago and she was weak all over, had fallen and hit her head on a rock but she was communicating well. Weaker on the right chronically with parkinsonian tremor on the right. Dr. Gonzalez and I followed the patient to CT. Now at [address] images have still not been uploaded. I reviewed her chart while her CT was completed including images from her CT head from 12/14 showing diffuse white matter changes worse on the right and doppler ultrasound carotid from 12/15 showing no stenosis in the anterior or posterior circulation. Dr. Gonzalez called the patient and discussed acute neurologic changes. Patient returned to the room and Dr. Gonzalez and I completed a neurologic exam. She was able to say her name and variably follow commands although attention span was poor. She had no significant drift of either extremity on the left or in the right leg. High amplitude tremor in the right arm. She has bruising all over the front of her head. She has some baseline neurologic problems, undefined. She has improved significantly and for multiple reasons should not recieve thrombolytic therapy, Dr. Gonzalez is going to call her back. Head CT 2129 shows profound diffuse atrophy and white matter changes without anything acute. Stroke Alert Activated by: patient care nurse on 2S Stroke Alert Activation Time: 20:47 Stroke MD @ Bedside Time: 20:48 NIH Stroke Scale Time: 21:10 NIH stroke score NIHSS: Level Of Consciousness - 1a: 1 Level Of Consciousness Questions - 1b: One Correct Level Of Consciousness Commands - 1c: Both Correct Best Gaze - 2: Normal Visual Parsons - 3: No Visual Loss Facial Palsy - 4: Normal Motor Arm Right - 5: Effort Against [place] Motor Arm Left - 5: No Drift Motor Leg Right - 6: No Drift Motor Leg Left - 6: No Drift Limb Ataxia - 7: Absent Sensory - 8: Normal Best Language - 9: No Aphasia Dysarthia - 10: Normal Extinction And Inattention - 11: 0 Score: Total Score: 4 Stroke Alert Data/Treatment Time to CT of Head: 21:07 CT Impression: no acute chantes Stroke Risk Factors: coronary artery disease (aortic valve replacement) and hypertension tPA Admin Prior to Arrival: No Patient & Family Educated on: Treament Plan Other Information: Patient no a candidate for thrombolytic therapy for multiple reasons including unclear onset of right sided weakness and current rapidly improving exam. There may have been transient hypotension that caused her symptoms. consider CTA in AM. please do not do mri. Critical Care Time Critical Care Time: less than 30 mins A&P Assessment and plan (1) TIA (transient ischemic attack): transient diffuse neurologic symptoms of unclear cause. she was diffusely weak and not able to follow commands. no clear focality. ct shows diffuse atrophy and white matter changes. is she demented? consider post-concussive syndrome, consider occult seizure. please dont do an mri. Plan aspirin and atorvastatin. pt. ot. PDMP PDMP Reviewed: Not Reviewed Coding Level of Care Code Acute Code for [facility] Fwd Diagnoses TIA (transient ischemic attack) G45.9
--- NOTE | 2024-12-16 21:31 | P.PN_ITS ---
Subjective 2 Subjective: Stroke alert was called around 8:48 PM patient with left-sided gaze neglecting the right unable to verbalize with these as a new change from an hour previous when she was administered her medications. Coming to bedside patient was unable to track me in the room but did make attempts to look to the right with her eyes but had a leftward gaze. Her pupils were equally reactive at 2.5 mm right pupil 3 mm left but equally reactive Patient could not follow commands to verbalize but did move her mouth she was unable to squeeze with her hands but did have tremor in her right hand. Looking at old record of my history and physical 12/15/2024 patient had tripped and fallen on the rocks and sustained a head LAC with delfin. She had no new acute unilateral symptoms but she had a chronic tremor for 4 years worked up with negative EEG and MRI. She has had chronically right leg weaker than left that she cannot lift as high so she has to put her right leg into pants first to get dressed. Physical exam from admit CV regular rate and rhythm with a 5/6 systolic ejection murmur best heard at the left sternal border radiates loudly to the upper chest and left neck less loud to the right neck Neuro she is alert and oriented x 3 pupils equally round and reactive to light accommodation Motor strength 5/5 bilateral ankle flexion and extension handgrips 5/5 left 5 - right finger abduction 5/5 left 4+ right biceps and triceps 5/5 left 4+ right. Patient has obvious tremor at rest and also with activity right hand Musculoskeletal left rib tenderness without crepitus at the level of the breast behind the breast and lateral Carotid Dopplers were negative I examined the patient in conjunction with Dr. Ortega pre-ECT. The patient went to CT and I spoke with the patient's . At the time I was in favor of thrombolytics due to the severe nature of the patient's stroke deficit and the known prior weakness in the right arm and leg documented in my exam suggesting that this was an acute change. However on return from CT scan patient is already getting better spontaneously Vitals/I&O/Wt Last Vital Signs Temp 98.0 F 12/16/24 20:00 Pulse 110 H 12/16/24 20:00 Resp 16 12/16/24 20:00 BP 171/91 12/16/24 20:00 Pulse Ox 94 12/16/24 20:00 O2 Del Method Room Air 12/16/24 16:00 12/16/24 12/16/24 12/16/24 06:59 14:59 22:59 Intake Total 240 / 1680 480 / 480 480 / 960 Output Total 250 / 250 Balance 240 / 1680 230 / 230 480 / 710 Weight last 48 hrs Weight 59.421 kg Weight 59.557 kg Weight 59.557 kg Weight 63.503 kg Physical Exam 2 Neuro: OTHER: Neuro patient is able to verbalize her name. She weakly said November for the date she is able to look to both sides right and left but her right arm is weak and she cannot raise it. Left leg drifts as does the left arm but she is able to keep them off the bed. The right leg she is able to keep it off the bed as well but there is significantly more drop. The right arm she is not able to lift or maintain without support and that she has a tremor. These were to a count of 5 Patient is significantly more alert Data 12/16/24 03:25 12/16/24 03:25 CT Head: Radiologist's impression: Radiologist called and said head CT negative for bleed or fracture a right frontal parietal scalp injury is noted there is white matter disease diffusely and there is a left caudate head small chronic infarct its very dark and obviously old A&P Assessment and plan (1) Acute CVA (cerebrovascular accident): Nothing new showing up on CT scan. We were contemplating thrombolytics but now the patient is much better and so risk-benefit ratio is not in favor of thrombolytics. Patient's has been called twice and I reassured him that the patient is significantly better and that we are not looking at thrombolytics at this time. Patient was transferred to the ICU and allowed some permissive hypertension to a goal systolic of 160 and diastolic 90. (2) Tremor of right hand: Possibly explained by the old left caudate head small chronic infarct PDMP PDMP Reviewed: Not Reviewed Attestations 2 Medical Necessity Statement*: Patient is transferred to the ICU and will require additional 2 to 3 days in hospital Coding Level of Care Code Critical Care >/= 30 minutes Diagnoses Acute CVA (cerebrovascular accident) I63.9 Tremor of right hand R25.1 Time Spent (min) 50
--- NOTE | 2024-12-16 21:31 | PC.NURSE ---
Stroke Alert Last Known Well @ 2029 Primary care team called stroke alert @ 2046 Dr Gonzalez at bedside for NIHSS @ 2050 Dr Ortega at bedside for NIHSS @ 2051 VS @ 2046 B/P 164/96 HR 135 Glucose 142 EKG @ 2054 (ST) CT @ 2103 ICU transfer @ 2133
--- NOTE | 2024-12-16 21:52 | PC.NURSE ---
Received patient after a stroke alert was called and patient was taken to CT. Patient arrived at 2131. Able to tell me her name, , town she is in, year, and month. She has tremors, but slight right sided weakness. at bedside and states he does not feel she has had any changes since he left her earlier.
[2024-12-16] MEDS: haloperidol inj 5 mg/mL INJ 1 mL 2 MG IVP (22:15)
--- NOTE | 2024-12-16 22:45 | PC.NURSE ---
this nurse passed meds on this patient at 2027 and pt was able to tell me her name, , and was telling me about her grandkids. Pt stated I do not want to and told me about having mini strokes at this time nurse noticed left sided facial droop and I informed the charge nurse of these findings. A stroke alert was called and the patient was unresponsive, was not able to tell me her name or . ordered a stat CT and we took the patient down to imaging. during CT patient was more aware and moving limbs. She was able to speak to us when she got back to her room and we explained to her what had happened. The patient was able to tell the dr her name and move her extremeties. pt was transferred to ICU for closer observation
[2024-12-17] VITALS (132 sets, daily range): BP systolic 108–175; BP diastolic 64–125; PULSE 75–115; RESP 10–33; TEMP 36.8–37.2; O2SAT 83–97; BMI 23.3
--- NOTE | 2024-12-17 01:21 | PC.NURSE ---
Provider updated on patients condition. Gave orders to begin heparin drip and discontinue q24h lovenox. See MAR
[2024-12-17] MEDS: heparin 5,000 unit/mL INJ 1 mL 3000 UNIT IVP (01:39)
[2024-12-17] MEDS: heparin drip 25,000 UNIT/500 ML PREMIX 16.64 UNIT IV (01:40)
--- NOTE | 2024-12-17 01:46 | PC.NURSE ---
Order for PTT to be collected at 0745.
[2024-12-17 05:04] LABS: Hematocrit 35.9 % (36-47); Hemoglobin 12.00 g/dL (11.27-16.99); Mean Corpuscular HGB Conc 33.4 g/dL (30-55); Mean Corpuscular Hemoglobin 30.3 pg (27-33); Mean Corpuscular Volume 90.7 fl (85-98); Nucleated Red Blood Cells % 0 %; Platelet Count 156 10^3/cmm (157-399); Red Blood Count 3.96 10^6/uL (3.85-5.65); White Blood Count 8.13 10^3/uL (3.29-11.43)
[2024-12-17 05:23] LABS: Anion Gap 15.8 (5-19); Blood Urea Nitrogen 5 mg/dL (8-23); Calcium 8.5 mg/dL (8.5-10.5); Carbon Dioxide 22 mmol/L (22-29); Chloride 107 mmol/L (98-107); Creatinine Clr Calc Pharmacy 53.7707; Glucose 99 mg/dL (65-115); Osmolality Calculated 289 mOsm/kg (285-295); Potassium 3.8 mmol/L (3.5-5.1); Sodium 141 mmol/L (136-145)
--- NOTE | 2024-12-17 05:40 | PC.NURSE ---
Patient very agitated and confused. Provider notified and gave orders for Haldol 2mg IVP. See MAR
[2024-12-17] MEDS: haloperidol inj 5 mg/mL INJ 1 mL 2 MG IVP (05:54)
[2024-12-17 08:29] LABS: Partial Thromboplastin Time 127.9 SECONDS (23.9-36.7)
--- NOTE | 2024-12-17 13:08 | PC.NURSE ---
breastfeeding program coordinator rounds at 0845- patient sitting up in the chair with bedside, gave patient and caregiver stroke education book.
[2024-12-17 15:09] LABS: Magnesium 1.8 mg/dL (1.7-2.3)
--- NOTE | 2024-12-17 15:36 | P.PN_ITS ---
Subjective 2 Subjective: Patient was seen this morning, currently alert to person, to place, not to time, denies any fevers, no chills, during my extensive conversation with her, she is easily distracted, she easily spaces out, requires frequent redirection, - I had an extensive discussion with tammie smith and at bedside - On admission had told me that Michelle has been having weak generalized weakness, for the last few weeks, she has been stumbling, no falls except the fall that brought her in, he has been noticing intermittent slurring of her words - I confirmed with patient and her husba nd that I believe that she has had a stroke, timeframe of the stroke could be within the last 2 weeks, what I have seen is is that she has had waxing and waning symptomatology, with right sided weakness, this morning it is very minimal I would say that the right upper extremity is very difficult to assess with her tremor, right shoulder stiffness, I cannot discern any weakness on the right, she has more generalized weakness of her arms # Right lower extremity she does have slight weakness of the right compared to the left, but certainly she is generalized weak - She does have word finding difficulty no slurring of her words, no visual deficits, pupils equal round reactive light, extraocular movements intact - She does have a resting tremor, which has recently worsened, tells me that whenever she is anxious, it tends to worsen, Vitals/I&O/Wt Last Vital Signs Temp 98.2 F 12/17/24 04:06 Pulse 112 H 12/17/24 08:52 Resp 23 H 12/17/24 08:52 BP 143/105 12/17/24 08:52 Pulse Ox 97 12/17/24 08:52 O2 Del Method Room Air 12/16/24 21:58 12/17/24 12/17/24 12/17/24 06:59 14:59 22:59 Intake Total 1130.688 / 1130.688 Output Total 200 / 450 350 / 350 Balance -200 / 510 780.688 / 780.688 Weight last 48 hrs Weight 59.6 kg Weight 59.421 kg Physical Exam 2 Const: COMMON NORMALS: no acute distress ORIENTATION/CONSCIOUSNESS: Yes awake, Yes oriented to person and Yes oriented to place; not oriented to time Eye: COMMON NORMALS: Equal, round and reactive pupils present and EOMs intact bilaterally PUPIL: Yes Equal, round and reactive pupils present Resp: COMMON NORMALS: normal respiratory effort, No retractions, No use of accessory muscles and clear to auscultation bilaterally AUSCULTATION: clear to auscultation bilaterally Cardio: COMMON NORMALS: regular rate, regular rhythm, S1 normal heart sound present and S2 normal heart sound present RATE: regular rate RHYTHM: r egular rhythm HEART SOUNDS: S1 normal heart sound present and S2 normal heart sound present GI: COMMON NORMALS: Normal to inspection, nondistended, normoactive bowel sounds present and non-tender Extremity: COMMON NORMALS: no pedal edema Neuro: COMMON NORMALS: CN's II-XII intact bilaterally and moves all extremities SENSORIUM/ORIENTATION: Yes oriented to person, Yes oriented to place and No oriented to time OTHER: Right upper extremity strength very difficult to assess given resting tremor right shoulder stiffness, resting tremor, Data 12/17/24 04:43 12/17/24 04:43 A&P Assessment and plan (1) Laceration of scalp: - Will need to follow-up with primary care provider as outpatient (2) Hx of aortic valve replacement: (3) Difficulty in walking: PT OT (4) Tremor of right hand: (5) Hypothyroidism: Continue levothyroxine (6) Acute CVA (cerebrovascular accident): Plan Fall - Tripped over a rock - More global weakness initially, but does have some right sided weakness compared to the left -Continue aspirin, statin - MRI brain cannot do with delfin in place - Systolic vitals within normal limits - Is on metoprolol, lisinopril, hydrochlorothiazide - Carotid artery ultrasound no acute findings - Cardiac echo as below - Telemetry monitoring - Serial EKGs, serial troponins, telemetry monitoring - Head CT Acute CVA -Head CT does show FINDINGS: Brain: Allowing from some artifact from the bone of the inner table of the frontal calvarium, no definite acute hemorrhage, mass, or extra-axial fluid collection is identified. No midline shift. No evidence of infarction. Cerebral ventricles: No hydrocephalus. Paranasal sinuses: Small right frontal sinus fluid. Mastoid air cells: Mastoid air cells are grossly clear. Bones: Calvarium appears intact. Soft tissues: Frontal scalp swelling. -Patient's reports for the last 2 weeks she has been stumbling, she has had word finding difficulty, slurring of her words -Onset of stroke timeframe unknown, potentially within the last 2 weeks Slight right upper, right lower extremity weakness compared to the left -Does have slight right upper right lower extremity weakness compared to the left, no facial droop, no slurring of words, no visual deficits, does have some slight word finding difficulty -Not a tPA candidate, - CT head within normal limits - Carotid artery ultrasound no acute findings - Has completed permissive hypertension continue metoprolol - Cardiac echo CONCLUSIONS LV systolic function is normal with EF of 60-65% Basal septal hypertrophy Grade 1 diastolic dysfunction Left atrial dilation Mild mitral regurgitation Moderate aortic stenosis with aortic valve area 1.09 cm squared and mean gradient across aortic valve 20 mmHg. Mild tricuspid regurgitation. Moderate pulmonary hypertension Trace pulmonic regurgitation - Telemetry monitoring - Neurochecks - NIH stroke scale - PT OT - Was on heparin drip will discontinue - Aspirin 81 mg - Plavix 75 mg - Atorvastatin 40 mg Aortic valve stenosis, moderate Right shoulder stiffness x-ray right shoulder, no acute fracture Tremor - Seems like a parkinsonian tremor, PT OT UTI ciprofloxacin Full code Lovenox for DVT prophylaxis PDMP PDMP Reviewed: Not Reviewed Attestations 2 Medical Necessity Statement*: Patient requires hospitalization for acute CVA, Diagnoses Laceration of scalp S01.01XA Encounter type: initial encounter Hx of aortic valve replacement Z95.2 Difficulty in walking R26.2 Tremor of right hand R25.1 Hypothyroidism, unspecified type E03.9 Hypothyroidism type: unspecified Acute CVA (cerebrovascular accident) I63.9
--- NOTE | 2024-12-17 19:49 | PC.NURSE ---
Patient agitated and unable to sleep last night. asked if we could try a different medication tonight. Provider notified and gave a one time order of 30mg PO Restoril. See MAR
[2024-12-18] VITALS (124 sets, daily range): BP systolic 121–180; BP diastolic 80–115; PULSE 84–130; RESP 1–27; TEMP 36.4–36.9; O2SAT 94–97
[2024-12-18 04:25] LABS: Hematocrit 36.6 % (36-47); Hemoglobin 12.30 g/dL (11.27-16.99); Mean Corpuscular HGB Conc 33.6 g/dL (30-55); Mean Corpuscular Hemoglobin 30.4 pg (27-33); Mean Corpuscular Volume 90.6 fl (85-98); Nucleated Red Blood Cells % 0 %; Platelet Count 153 10^3/cmm (157-399); Red Blood Count 4.04 10^6/uL (3.85-5.65); White Blood Count 7.73 10^3/uL (3.29-11.43)
[2024-12-18 04:41] LABS: Anion Gap 15.3 (5-19); Blood Urea Nitrogen 5 mg/dL (8-23); Calcium 9.0 mg/dL (8.5-10.5); Carbon Dioxide 25 mmol/L (22-29); Chloride 102 mmol/L (98-107); Creatinine Clr Calc Pharmacy 53.8404; Glucose 87 mg/dL (65-115); Osmolality Calculated 285 mOsm/kg (285-295); Potassium 3.3 mmol/L (3.5-5.1); Sodium 139 mmol/L (136-145)
--- NOTE | 2024-12-18 16:41 | P.PN_ITS ---
Subjective 2 Subjective: Patient was seen this morning, she is alert to person, to place, not to time she follows commands, but easily falls back asleep, she received Restoril, during the night, Vitals/I&O/Wt Last Vital Signs Temp 98.2 F 12/18/24 03:04 Pulse 124 H 12/18/24 14:00 Resp 25 H 12/18/24 12:00 BP 167/115 12/18/24 12:00 Pulse Ox 97 12/18/24 11:00 O2 Del Method Room Air 12/18/24 16:29 12/18/24 12/18/24 12/18/24 06:59 14:59 22:59 Intake Total 100 / 2257.355 100 / 100 Output Total 200 / 750 Balance -100 / 1507.355 100 / 100 Weight last 48 hrs Weight 58.754 kg Weight 59.6 kg Physical Exam 2 Const: COMMON NORMALS: no acute distress ORIENTATION/CONSCIOUSNESS: Yes awake, Yes oriented to person and Yes oriented to place; not oriented to time Resp: COMMON NORMALS: normal respiratory effort, No retractions, No use of accessory muscles and clear to auscultation bilaterally AUSCULTATION: clear to auscultation bilaterally Cardio: COMMON NORMALS: regular rate, regular rhythm, S1 normal heart sound present and S2 normal heart sound present RATE: regular rate RHYTHM: r egular rhythm HEART SOUNDS: S1 normal heart sound present and S2 normal heart sound present GI: COMMON NORMALS: Normal to inspection, nondistended, normoactive bowel sounds present, Soft to palpation and non-tender PALPATION: Yes Soft to palpation Extremity: COMMON NORMALS: no pedal edema Neuro: COMMON NORMALS: moves all extremities SENSORIUM/ORIENTATION: Yes oriented to person, Yes oriented to place and No oriented to time Data 12/18/24 03:55 12/18/24 03:55 A&P Assessment and plan (1) Laceration of scalp: - Will need to follow-up with primary care provider as outpatient (2) Hx of aortic valve replacement: (3) Difficulty in walking: PT OT (4) Tremor of right hand: (5) Hypothyroidism: Continue levothyroxine (6) Acute CVA (cerebrovascular accident): Plan Fall - Tripped over a rock - More global weakness initially, but does have some right sided weakness compared to the left -Continue aspirin, statin - MRI brain cannot do with delfin in place - Systolic vitals within normal limits - Is on metoprolol, lisinopril, hydrochlorothiazide - Carotid artery ultrasound no acute findings - Cardiac echo as below - Telemetry monitoring - Serial EKGs, serial troponins, telemetry monitoring - Head CT Acute CVA -Head CT does show FINDINGS: Brain: Allowing from some artifact from the bone of the inner table of the frontal calvarium, no definite acute hemorrhage, mass, or extra-axial fluid collection is identified. No midline shift. No evidence of infarction. Cerebral ventricles: No hydrocephalus. Paranasal sinuses: Small right frontal sinus fluid. Mastoid air cells: Mastoid air cells are grossly clear. Bones: Calvarium appears intact. Soft tissues: Frontal scalp swelling. -Patient's reports for the last 2 weeks she has been stumbling, she has had word finding difficulty, slurring of her words -Onset of stroke timeframe unknown, potentially within the last 2 weeks Slight right upper, right lower extremity weakness compared to the left -Does have slight right upper right lower extremity weakness compared to the left, no facial droop, no slurring of words, no visual deficits, does have some slight word finding difficulty -Not a tPA candidate, - CT head within normal limits - Carotid artery ultrasound no acute findings - Has completed permissive hypertension continue metoprolol - Cardiac echo CONCLUSIONS LV systolic function is normal with EF of 60-65% Basal septal hypertrophy Grade 1 diastolic dysfunction Left atrial dilation Mild mitral regurgitation Moderate aortic stenosis with aortic valve area 1.09 cm squared and mean gradient across aortic valve 20 mmHg. Mild tricuspid regurgitation. Moderate pulmonary hypertension Trace pulmonic regurgitation - Telemetry monitoring - Neurochecks - NIH stroke scale - PT OT - Was on heparin drip will discontinue - Aspirin 81 mg - Plavix 75 mg - Atorvastatin 40 mg Aortic valve stenosis, moderate Right shoulder stiffness x-ray right shoulder, no acute fracture Tremor - Seems like a parkinsonian tremor, PT OT UTI ciprofloxacin Full code Lovenox for DVT prophylaxis Acute encephalopathy this morning, likely the effect of Restoril, will monitor mentation PT OT, continue aspirin, statin, monitor blood pressure monitor heart rate, telemetry monitoring, will need event monitor at discharge, work on placement to [facility] facility PDMP PDMP Reviewed: Not Reviewed Attestations 2 Medical Necessity Statement*: Patient requires hospitalization for acute CVA Diagnoses Laceration of scalp S01.01XA Encounter type: initial encounter Hx of aortic valve replacement Z95.2 Difficulty in walking R26.2 Tremor of right hand R25.1 Hypothyroidism, unspecified type E03.9 Hypothyroidism type: unspecified Acute CVA (cerebrovascular accident) I63.9
--- NOTE | 2024-12-18 17:04 | ECG_ITS ---
[facility] 2024-12[facility]18 Pat Name: Michelle Vera Department: Room: 278 Gender: Female [employer] Tender: : 1950 Requested By: Zac Palma Order Number: [id number] Marquez MD: Kike Cano M.D. Measurements Intervals [place] Rate: 92 P: 51 VA: 164 QRS: -23 QRSD: 129 T: 71 QT: 391 QTc: 485 Interpretive Statements SINUS RHYTHM RIGHT ATRIAL ENLARGEMENT [0.3mV P-WAVE] LEFT BUNDLE BRANCH BLOCK [120+ ms QRS DURATION, 80+ ms Q/S IN V1/V2, 85+ ms R IN I/aVL/V5/V6] Compared to ECG 12/16/2024 20:56:05 Atrial abnormality now present Sinus tachycardia no longer present Electronically Signed On 12-20-2024 08:59:28 CDT by Kike Cano M.D. [email or web address]
[2024-12-19] VITALS (8 sets, daily range): BP systolic 145–165; BP diastolic 91–111; PULSE 66–106; RESP 15–18; TEMP 36.5–37.1; O2SAT 93–95
[2024-12-19 05:32] LABS: Hematocrit 37.8 % (36-47); Hemoglobin 12.60 g/dL (11.27-16.99); Mean Corpuscular HGB Conc 33.3 g/dL (30-55); Mean Corpuscular Hemoglobin 30.0 pg (27-33); Mean Corpuscular Volume 90.0 fl (85-98); Nucleated Red Blood Cells % 0 %; Platelet Count 180 10^3/cmm (157-399); Red Blood Count 4.20 10^6/uL (3.85-5.65); White Blood Count 8.70 10^3/uL (3.29-11.43)
[2024-12-19 06:02] LABS: Anion Gap 17.4 (5-19); Blood Urea Nitrogen 7 mg/dL (8-23); Calcium 8.8 mg/dL (8.5-10.5); Carbon Dioxide 24 mmol/L (22-29); Chloride 103 mmol/L (98-107); Creatinine Clr Calc Pharmacy 51.8621; Glucose 94 mg/dL (65-115); Osmolality Calculated 290 mOsm/kg (285-295); Potassium 3.4 mmol/L (3.5-5.1); Sodium 141 mmol/L (136-145)
--- NOTE | 2024-12-19 07:11 | DCPLANNER ---
Message sent to Clinics to establish a PCP
--- NOTE | 2024-12-19 09:00 | ECG_ITS ---
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 Measurements Intervals [place] Rate: 118 P: 59 [place]: 152 QRS: -23 QRSD: 115 T: 101 QT: 359 QTc: 505 Interpretive Statements SINUS TACHYCARDIA BORDERLINE LEFT AXIS DEVIATION [QRS AXIS < -20] MODERATE INTRAVENTRICULAR CONDUCTION DELAY [110+ ms QRS DURATION] ST DEVIATION AND MODERATE T-WAVE ABNORMALITY, CONSIDER LATERAL ISCHEMIA [-0.1+ mV T-WAVE IN I/aVL/V5/V6] Compared to ECG 12/18/2024 17:39:08 Intraventricular conduction delay now present T-wave abnormality now present Possible ischemia now present Sinus rhythm no longer present Atrial abnormality no longer present Left bundle-branch block no longer present Electronically Signed On 12-20-2024 08:56:46 CDT by Kike Cano M.D. [id number] [id number]
--- NOTE | 2024-12-19 10:05 | PC.SOCIAL ---
IMM update pg 2 of IMM updated and reviewed w/ patient. Copy provided and copy dated, initialed and placed in chart.
--- NOTE | 2024-12-19 10:26 | CT_ITS ---
WS: [id number] CT HEAD TECHNIQUE: Noncontrast CT of the head obtained from the skullbase to the vertex. CLINICAL INFORMATION: right arm weakness COMPARISON: None. DLP: 1182.[address] scans at [facility] use at least one of these dose optimization techniques: automated exposure control; mA and/or kV adjustment per patient size (includes targeted exams where dose is matched to clinical indication); or iterative reconstruction. FINDINGS: No evidence of intracranial hemorrhage or mass effect. Ventricular system and basal cisterns are patent. Moderate small vessel changes with moderate parenchymal volume loss. No extra-axial fluid collections. No evidence of mass or mass effect. Tiny chronic lacunar infarct LEFT caudate. Vascular calcifi cation. Small chronic lacunar infarct LEFT cerebellum. Tiny chronic lacunar infarcts RIGHT basal ganglia. Paranasal sinuses and mastoid air cells are well aerated. .Normal visualized soft tissues. CT/CT head wo con* [id number] IMPRESSION: 1. No evidence of intracranial hemorrhage or mass effect. 2. Tiny chronic lacunar infarcts LEFT caudate, RIGHT basal ganglia, and LEFT c erebellum. 3. Moderate small vessel changes with moderate parenchymal volume loss.
--- NOTE | 2024-12-19 12:41 | P.PN_ITS ---
Subjective 2 Subjective: Patient was seen this morning, she alert to person, not place, not to time she follows commands, she is sitting up in a chair, nursing staff at bedside, got her up and into bed, she is significantly weak, requiring assistance into bed, she does have more pronounced right upper extremity weakness this morning, does have right lower extremity weakness 4 out of 5, no facial droop no slurring of words, - This morning she had runs of sinus tac hycardia on telemetry monitoring - Upon further review, she also had beat s of atrial fibrillation in between sinus tachycardia - Will repeat head CT, start her on ther apeutic Lovenox, p.o. amiodarone - She has been about 72 hours since her hospital admission, so it would be reasonable to start her on full dose anticoagulant therapy - Start p.o. amiodarone A-fib with RVR, the typically comes on with her exerting herself - Given her acute CVA, right-sided weakn ess, concern for embolic phenomenon, thus I am going to stop the Plavix start her on Lovenox - Vitals/I&O/Wt Last Vital Signs Temp 98.3 F 12/19/24 11:57 Pulse 66 12/19/24 11:57 Resp 18 12/19/24 11:57 BP 153/91 12/19/24 11:57 Pulse Ox 93 12/19/24 11:57 O2 Del Method Room Air 12/19/24 11:57 12/18/24 12/19/24 12/19/24 22:59 06:59 14:59 Intake Total 360 / 460 0 / 460 360 / 360 Balance 360 / 460 0 / 460 360 / 360 Weight last 48 hrs Weight 54.522 kg Weight 58.754 kg Physical Exam 2 Const: COMMON NORMALS: no acute distress and patient oriented x3 Eye: OTHER: Pupils equal round react to light, extraocular movements intact Resp: COMMON NORMALS: normal respiratory effort, No retractions, No use of accessory muscles and clear to auscultation bilaterally AUSCULTATION: clear to auscultation bilaterally Cardio: COMMON NORMALS: regular rate, regular rhythm, S1 normal heart sound present and S2 normal heart sound present RATE: regular rate RHYTHM: r egular rhythm HEART SOUNDS: S1 normal heart sound present and S2 normal heart sound present GI: COMMON NORMALS: Normal to inspection, nondistended, normoactive bowel sounds present and non-tender Extremity: COMMON NORMALS: no pedal edema Neuro: COMMON NORMALS: patient oriented x3, CN's II-XII intact bilaterally and moves all extremities OTHER: Right upper extremity strength 3 out of 5 compared to 5 out of 5 on the left, but limited by right shoulder stiffness, tremor Right lower extremity strength 4 out of 5, to 5 of 5 on the left - No facial droop, slurring words Psych: COMMON NORMALS: mental status grossly normal Data 12/19/24 05:05 12/19/24 05:05 A&P Assessment and plan (1) Laceration of scalp: - Will need to follow-up with primary care provider as outpatient (2) Hx of aortic valve replacement: (3) Difficulty in walking: PT OT (4) Tremor of right hand: (5) Hypothyroidism: Continue levothyroxine (6) Acute CVA (cerebrovascular accident): (7) Atrial fibrillation with RVR: Plan Fall - Tripped over a rock - More global weakness initially, but does have some right sided weakness compared to the left -Continue aspirin, statin - MRI brain cannot do with delfin in place - Systolic vitals within normal limits - Is on metoprolol, lisinopril, hydrochlorothiazide - Carotid artery ultrasound no acute findings - Cardiac echo as below - Telemetry monitoring - Serial EKGs, serial troponins, telemetry monitoring - Head CT no acute bleed Acute CVA -Head CT does show FINDINGS: Brain: Allowing from some artifact from the bone of the inner table of the frontal calvarium, no definite acute hemorrhage, mass, or extra-axial fluid collection is identified. No midline shift. No evidence of infarction. Cerebral ventricles: No hydrocephalus. Paranasal sinuses: Small right frontal sinus fluid. Mastoid air cells: Mastoid air cells are grossly clear. Bones: Calvarium appears intact. Soft tissues: Frontal scalp swelling. -Patient's reports for the last 2 weeks she has been stumbling, she has had word finding difficulty, slurring of her words -Onset of stroke timeframe unknown, potentially within the last 2 weeks Slight right upper, right lower extremity weakness compared to the left -Does have slight right upper right lower extremity weakness compared to the left, no facial droop, no slurring of words, no visual deficits, does have some slight word finding difficulty -Not a tPA candidate, -Code stroke 12/16/2024, transient diffuse neurologic symptoms of unclear cause, she was back to her baseline thereafter - CT head within normal limits - Carotid artery ultrasound no acute findings - Has completed permissive hypertension continue metoprolol - Cardiac echo CONCLUSIONS LV systolic function is normal with EF of 60-65% Basal septal hypertrophy Grade 1 diastolic dysfunction Left atrial dilation Mild mitral regurgitation Moderate aortic stenosis with aortic valve area 1.09 cm squared and mean gradient across aortic valve 20 mmHg. Mild tricuspid regurgitation. Moderate pulmonary hypertension Trace pulmonic regurgitation - Telemetry monitoring, shows evidence of A-fib with RVR - Neurochecks - NIH stroke scale - PT OT - Will resume Lovenox as it has been more than 72 hours since patient's stroke symptoms, repeat head CT - Aspirin 81 mg - Atorvastatin 40 mg A-fib with RVR - Patient alternates between sinus tachycardia to A-fib with RVR to normal sinus rhythm - It has been more than 72 hours since patient's stroke symptoms - Will start her on therapeutic Lovenox Aortic valve stenosis, moderate Right shoulder stiffness x-ray right shoulder, no acute fracture Tremor - Seems like a parkinsonian tremor, PT OT UTI ciprofloxacin Full code Lovenox for DVT prophylaxis PDMP PDMP Reviewed: Not Reviewed Attestations 2 Medical Necessity Statement*: Patient requires hospitalization for A-fib with RVR, acute CVA Diagnoses Laceration of scalp S01.01XA Encounter type: initial encounter Hx of aortic valve replacement Z95.2 Difficulty in walking R26.2 Tremor of right hand R25.1 Hypothyroidism, unspecified type E03.9 Hypothyroidism type: unspecified Acute CVA (cerebrovascular accident) I63.9 Atrial fibrillation with RVR I48.91
[2024-12-19] MEDS: polyethylene glycol 3350 Pkt 17 gm PO (16:11)
[2024-12-20] VITALS: BP 135/90; PULSE 98; RESP 16; TEMP 36.7; O2SAT 95
[2024-12-20 02:33] VITALS: BP 146/99; BP 152/102; BP 153/111; BP 161/107; BP 164/104; BP 165/98; PULSE 106; PULSE 85; PULSE 88; PULSE 93; PULSE 95; PULSE 97
[2024-12-20 04:00] VITALS: BP 143/83; PULSE 99; RESP 18; TEMP 36.7; O2SAT 96
[2024-12-20 05:58] LABS: Hematocrit 38.3 % (36-47); Hemoglobin 13.10 g/dL (11.27-16.99); Mean Corpuscular HGB Conc 34.2 g/dL (30-55); Mean Corpuscular Hemoglobin 30.7 pg (27-33); Mean Corpuscular Volume 89.7 fl (85-98); Nucleated Red Blood Cells % 0 %; Platelet Count 178 10^3/cmm (157-399); Red Blood Count 4.27 10^6/uL (3.85-5.65); White Blood Count 9.16 10^3/uL (3.29-11.43)
[2024-12-20 06:27] LABS: Alanine Aminotransferase 18 U/L (0-33); Albumin Level 3.6 g/dL (3.5-5.2); Alkaline Phosphatase 70 U/L (35-105); Anion Gap 18.2 (5-19); Aspartate Amino Transferase 32 U/L (0-32); Blood Urea Nitrogen 8 mg/dL (8-23); Calcium 9.0 mg/dL (8.5-10.5); Carbon Dioxide 25 mmol/L (22-29); Chloride 101 mmol/L (98-107); Creatinine Clr Calc Pharmacy 52.0035; Globulin 3.1 g/dL (1.3-4.6); Glucose 95 mg/dL (65-115); Osmolality Calculated 290 mOsm/kg (285-295); Potassium 3.2 mmol/L (3.5-5.1); Sodium 141 mmol/L (136-145); Total Protein 6.7 g/dL (6.6-8.7)
[2024-12-20 07:56] VITALS: BP 131/53; PULSE 90; RESP 16; TEMP 37.2; O2SAT 94
--- NOTE | 2024-12-20 10:46 | PM.DCS ---
Discharge Providers Date of Admission: 12/16/24 09:00 Date of Discharge: December 20, 2024 Attending Provider at Admission: Daniel Gonzalez MD Attending Provider at Discharge: Zac Palma MD Primary Care Provider: AVIS Saucedo Diagnoses at Discharge Discharge Diagnosis (1) Laceration of scalp: Status: Acute Qualifiers: Encounter type: initial encounter Qualified Code(s): S01.01XA - Laceration without foreign body of scalp, initial encounter (2) Hx of aortic valve replacement: Status: Acute (3) Difficulty in walking: Status: Acute (4) Tremor of right hand: Status: Acute (5) Hypothyroidism: Status: Acute Qualifiers: Hypothyroidism type: unspecified Qualified Code(s): E03.9 - Hypothyroidism, unspecified (6) Acute CVA (cerebrovascular accident): Status: Acute (7) Atrial fibrillation with RVR: Status: Acute Reason for Visit Reason for Visit: fall, head injury Hospital Course Hospital Course This is a 74-year-old female who presents [facility] for a fall For patient's fall, she tripped on rocks, she had a laceration at the right frontal cranium, status post delfin, delfin will need to be removed in 8 to 10 days On hospital admission and during hospitalization there was concern for acute CVA Acute CVA -Head CT on admission shows FINDINGS: Brain: Allowing from some artifact from the bone of the inner table of the frontal calvarium, no definite acute hemorrhage, mass, or extra-axial fluid collection is identified. No midline shift. No evidence of infarction. Cerebral ventricles: No hydrocephalus. Paranasal sinuses: Small right frontal sinus fluid. Mastoid air cells: Mastoid air cells are grossly clear. Bones: Calvarium appears intact. Soft tissues: Frontal scalp swelling. -Patient's reports for the last 2 weeks she has been stumbling, she has had word finding difficulty, slurring of her words -Onset of stroke timeframe unknown, potentially within the last 2 weeks -Slight right upper, right lower extremity weakness compared to the left during my examination -Does have slight right upper right lower extremity weakness compared to the left, no facial droop, no slurring of words, no visual deficits, does have some slight word finding difficulty -Not a tPA candidate, -She was managed with aspirin, statin -Code stroke 12/16/2024, transient diffuse neurologic symptoms of unclear cause, she was back to her baseline thereafter - Repeat CT head within normal limits - Carotid artery ultrasound no acute findings - Has completed permissive hypertension, continue metoprolol - Cardiac echo CONCLUSIONS LV systolic function is normal with EF of 60-65% Basal septal hypertrophy Grade 1 diastolic dysfunction Left atrial dilation Mild mitral regurgitation Moderate aortic stenosis with aortic valve area 1.09 cm squared and mean gradient across aortic valve 20 mmHg. Mild tricuspid regurgitation. 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 - She was transition to Lovenox monitor for 24 hours - Will be discharged on Eliquis therapy, aspirin, statin, with close follow-up with primary care - Follow-up with neurology 1 to 2 weeks - Follow-up with cardiology with event monitor in place in 1 month - On discharge she has right upper extremity weakness, poor content developer strength, strength is about 3 out of 5, she was ambulated about 15 feet with wheeled walker, requires mod assist, she is alert to person, to place, not to time she follows commands, no facial droop, no slurring of words, mild no word finding difficulty For A-fib with RVR - Currently back into normal sinus rhythm - Discharged on Eliquis 5 mg twice daily - Discharged on metoprolol - Discharged tapering dose of amiodarone - Follow-up with cardiology For your urinary tract infection, discharged on p.o. antibiotics Physical Exam Const: COMMON NORMALS: no acute distress ORIENTATION/CONSCIOUSNESS: Yes awake, Yes oriented to person and Yes oriented to place; not oriented to time Eye: COMMON NORMALS: Equal, round and reactive pupils present and EOMs intact bilaterally PUPIL: Yes Equal, round and reactive pupils present Resp: COMMON NORMALS: normal respiratory effort, No retractions, No use of accessory muscles and clear to auscultation bilaterally AUSCULTATION: clear to auscultation bilaterally Cardio: COMMON NORMALS: regular rate, regular rhythm, S1 normal heart sound present and S2 normal heart sound present RATE: regular rate RHYTHM: regular rhythm HEART SOUNDS: S1 normal heart sound present and S2 normal heart sound present GI: COMMON NORMALS: Normal to inspection, nondistended, normoactive bowel sounds present and non-tender Extremity: COMMON NORMALS: no pedal edema Neuro: SENSORIUM/ORIENTATION: Yes oriented to person, Yes oriented to place and No oriented to time OTHER: No facial droop, no slurring of words Right upper extremity strength is 3 out of 5 compared to 5 out of 5 on the left Tremor is minimal today Have significant right shoulder stiffness Right lower extremity strength strength 4 out of 5 compared to 5 out of 5 on the left She did ambulate with physical therapy this morning Psych: COMMON NORMALS: mental status grossly normal Skin: NARRATIVE SKIN EXAM: Right frontal cranium, delfin in place Discharge Data Studies Completed and Pending Completed Studies During Hospitalization Category Date Time Status CT cervical spin wo con* [id number] Stat Cat Scan 12/14/24 22:[address] head wo con* [id number] Stat Cat Scan 12/14/24 22:[address] head wo con* [id number] Stat Cat Scan 12/16/24 20:[address] head wo con* [id number] Stat Cat Scan 12/19/24 10:26 Completed XR shoulder RT min 2V* [id number] Routine Exams 12/15/24 15:25 Completed CV. echo complete* [id number] Routine Ultrasound 12/15/24 08:44 Completed US carotid duplex bilateral [CV carotid duplex BI* Ultrasound 12/15/24 08:44 Completed [id number]] Stat Pending at discharge Category Date Time Status Complete Blood Count w/Auto AM LABS Lab 12/21/24 04:00 Ordered Complete Blood Count w/Auto AM LABS Lab 12/22/24 04:00 Ordered Comprehensive Metabolic Panel AM LABS Lab 12/21/24 04:00 Ordered Comprehensive Metabolic Panel AM LABS Lab 12/22/24 04:00 Ordered Radiology Impressions Cervical Spine CT 12/14/24 22:26 IMPRESSION: No acute trauma to the cervical spine is identified. Carotid Doppler Study 12/15/24 08:44 IMPRESSION: 1. No hemodynamically significant carotid stenosis identified. 2. Bilateral antegrade vertebral artery flow. REFERENCES: SRU CRITERIA. The degree of internal carotid artery stenosis is based on criteria defined by the Society of Radiologists in Ultrasound (SRU). Normal is no stenosis. Mild is less than 50% stenosis. Moderate is 50-69% stenosis. Severe is greater than 69% stenosis to near occlusion. Near occlusion is a markedly narrowed lumen. Total occlusion is no detectable patent lumen. Reference: Dian Jansen, et al. Carotid Artery Stenosis: Du-Scale and Doppler US Diagnosis-Society of Radiologists in Ultrasound Consensus Conference. Radiology 2003; 229:340-346. Shoulder X-Ray 12/15/24 15:25 IMPRESSION: No acute findings. Head CT 12/19/24 10:26 IMPRESSION: 1. No evidence of intracranial hemorrhage or mass effect. 2. Tiny chronic lacunar infarcts LEFT caudate, RIGHT basal ganglia, and LEFT cerebellum. 3. Moderate small vessel changes with moderate parenchymal volume loss. Laboratory Results WBC 9.16 10^3/uL (3.29-11.43) 12/20/24 05:33 RBC 4.27 10^6/uL (3.85-5.65) 12/20/24 05:33 Hgb 13.10 g/dL (11.27-16.99) 12/20/24 05:33 Hct 38.3 % (36-47) 12/20/24 05:33 MCV 89.7 fl (85-98) 12/20/24 05:33 MCH 30.7 pg (27-33) 12/20/24 05:33 MCHC 34.2 g/dL (30-55) 12/20/24 05:33 RDW 12.7 % (12.1-15.1) 12/20/24 05:33 Plt Count 178 10^3/cmm (157-399) 12/20/24 05:33 MPV 11.6 fL (7.4-10.4) H 12/20/24 05:33 Neut % (Auto) 68.1 % 12/20/24 05:33 Lymph % (Auto) 19.3 % 12/20/24 05:33 Payette % (Auto) 11.7 % 12/20/24 05:33 Eos % (Auto) 0.3 % 12/20/24 05:33 Baso % (Auto) 0.4 % 12/20/24 05:33 Neut # (Auto) 6.23 10^3/uL (1.8-7.7) 12/20/24 05:33 Lymph # (Auto) 1.8 10^3/uL (0.8-4.8) 12/20/24 05:33 Payette # (Auto) 1.1 10^3/uL (0.2-0.9) H 12/20/24 05:33 Eos # (Auto) 0.0 10^3/uL (0.0-0.8) 12/20/24 05:33 Baso # (Auto) 0.0 10^3/uL (0.0-0.1) 12/20/24 05:33 Nucleated RBC % (auto) 0 % 12/20/24 05:33 Nucleated RBCs # 0.0 /100WBC 12/20/24 05:33 ESR 8 mm/hr (0-15) 12/17/24 04:43 APTT 127.9 SECONDS (23.9-36.7) H 12/17/24 07:51 Sodium 141 mmol/L (136-145) 12/20/24 05:33 Potassium 3.2 mmol/L (3.5-5.1) L 12/20/24 05:33 Chloride 101 mmol/L (98-107) 12/20/24 05:33 Carbon Dioxide 25 mmol/L (22-29) 12/20/24 05:33 Anion Gap 18.2 (5-19) 12/20/24 05:33 BUN 8 mg/dL (8-23) 12/20/24 05:33 Creatinine 0.5 mg/dL (0.5-0.9) 12/20/24 05:33 GFR Calculation Not Reportable 12/20/24 05:33 Glucose 95 mg/dL (65-115) 12/20/24 05:33 POC Glucose 142 mg/dL (70-110) H 12/16/24 20:47 Calculated Osmolality 290 mOsm/kg (285-295) 12/20/24 05:33 Calcium 9.0 mg/dL (8.5-10.5) 12/20/24 05:33 Phosphorus 3.2 mg/dL (2.5-4.5) 12/14/24 22:50 Magnesium 1.8 mg/dL (1.7-2.3) 12/17/24 04:43 Total Bilirubin 1.9 mg/dL (0.15-1.2) H 12/20/24 05:33 AST 32 U/L (0-32) 12/20/24 05:33 ALT 18 U/L (0-33) 12/20/24 05:33 Alkaline Phosphatase 70 U/L (35-105) 12/20/24 05:33 Troponin T Baseline 49 ng/L (0-10) H 12/15/24 09:07 Troponin T 120 Minute 46.83 ng/L (0-10) H 12/15/24 10:52 Delta Troponin T -2.17 ABS# (0-10) L 12/15/24 10:52 Troponin T Hi Sens 6Hr 34.19 ng/L (0-10) H 12/15/24 15:37 Troponin T Hi Sens 6Hr Delta -14.81 ng/L (0-12) L 12/15/24 15:37 C-Reactive Protein 3.0 mg/L (0.0-4.9) 12/15/24 09:07 Total Protein 6.7 g/dL (6.6-8.7) 12/20/24 05:33 Albumin 3.6 g/dL (3.5-5.2) 12/20/24 05:33 Globulin 3.1 g/dL (1.3-4.6) 12/20/24 05:33 TSH 2.53 uIU/mL (0.27-4.20) 12/16/24 03:25 Urine Color Yellow (Yellow) 12/15/24 01:14 Urine Appearance Cloudy (CLEAR) A 12/15/24 01:14 Urine pH 6.0 (5-7) 12/15/24 01:14 Ur Specific [place] 1.007 (1.005-1.030) 12/15/24 01:14 Urine Protein Negative (Negative) 12/15/24 01:14 Urine Glucose (UA) Negative (Normal) 12/15/24 01:14 Urine Ketones Negative (Negative) 12/15/24 01:14 Urine Blood 2+ (Negative) A 12/15/24 01:14 Urine Nitrate Negative (Negative) 12/15/24 01:14 Urine Bilirubin Negative (Negative) 12/15/24 01:14 Urine Urobilinogen 1.0 mg/dL (Negative) 12/15/24 01:14 Ur Leukocyte Esterase 3+ (Negative) A 12/15/24 01:14 Urine RBC 11-20 /hpf (0-2) H 12/15/24 01:14 Urine WBC 11-20 /hpf (0-5) H 12/15/24 01:14 Ur Squamous Epith Cells 6-10 /hpf (0-5) 12/15/24 01:14 Amorphous Sediment Not Reportable 12/15/24 01:14 Urine Bacteria Trace /hpf (NONE) 12/15/24 01:14 Hyaline Casts 0.81 /lpf 12/15/24 01:14 Vitals Last Vital Signs Temp 98.9 F 12/20/24 07:56 Pulse 90 12/20/24 07:56 Resp 16 12/20/24 07:56 BP 131/53 12/20/24 07:56 Pulse Ox 94 12/20/24 07:56 O2 Del Method Room Air 12/20/24 07:56 Discharge Plan Discharge Patient Disposition: Xfer SNF Condition: Stable Prescriptions: New amiodarone [Pacerone] 200 mg Tablet See Rx Instructions .ROUTE .COMPLEX Qty: 60 0RF Rx Instructions: 2 tabs(400mg) twice daily for 5 days, 1 tab twice daily for 5 days, then 1 tab daily atorvastatin 40 mg Tablet 40 mg PO BEDTIME 30 Days Qty: 30 0RF aspirin 81 mg Tablet,Delayed Release (Dr/Ec) 81 mg PO DAILY 30 Days Qty: 30 0RF ciprofloxacin HCl 500 mg Tablet 250 mg PO BID@0500,1700 2 Days Qty: 4 0RF Eliquis 5 mg tablet 5 mg PO BID 30 Days Qty: 60 0RF Continued metoprolol tartrate 25 mg tablet 25 mg PO BID Qty: 180 0RF famotidine 40 mg tablet 40 mg PO DAILY Qty: 90 1RF cyclobenzaprine 10 mg tablet See Rx Instructions .ROUTE .COMPLEX Qty: 30 0RF Dose Instruction: TAKE 1 TABLET BY MOUTH ONCE DAILY NEEDED FOR MUSCLE SPASM Rx Instructions: TAKE 1 TABLET BY MOUTH ONCE DAILY NEEDED FOR MUSCLE SPASM All Day Allergy (cetirizine) 10 mg capsule 10 mg PO DAILY PRN (Reason: ALLERGIES) Qty: 30 0RF levothyroxine 75 mcg tablet See Rx Instructions .ROUTE .COMPLEX Qty: 90 0RF Dose Instruction: Take 1 tablet by mouth once daily Rx Instructions: Take 1 tablet by mouth once daily Discontinued aspirin [Adult Aspirin Regimen] 81 mg tablet,delayed release (DR/EC) 81 mg PO DAILY lisinopril 40 mg tablet See Rx Instructions .ROUTE .COMPLEX Qty: 90 0RF Dose Instruction: Take 1 tablet by mouth once daily Rx Instructions: Take 1 tablet by mouth once daily Discharge Orders: Discharge Order (Routine); Ordered 12/20/24 Ordered By: Zac Palma Other Ambulatory Orders: DME: Walker (Order) Location: None Selected Ordered By: Zac Palma MCT/Event Monitor 30 Days (Routine) Timeframe: 1 Day Facility: [facility] - Location: Radiology Ordered By: Zac Palma Referrals: [facility] [Outside] Chula Ortega MD [Physician, Neurology] - 1 month Kike Cano M.D [Physician, Cardiology] - 2 weeks Radha Gustafson FNP [Primary Care Provider, Family Practice] Discharge Diet: Usual diet Discharge Activity: Resume usual activity Patient Instructions: Ciprofloxacin (By mouth) (Cipro), Aspirin (By mouth), Amiodarone (By mouth) (Cordarone, Pacerone), Atorvastatin (By mouth) (Lipitor, Atorvaliq), Apixaban (By mouth) (Eliquis), A-fib (Atrial Fibrillation) (DC), Fall Prevention for Older Adults (ED), Staple Care (ED), Opioid Safety, Patient Portal & Collette Instructions Activity Restrictions/Additional Instructions: Tylenol or ibuprofen for pain Case management order has been placed to help you with primary care physician Remove delfin in 8-10 days Repeat CBC in 1 week to make sure this continues to be stable. Your primary care physician will be able to do this when you get your delfin removed. Return to ED for pain, visual changes, walking changes, or weakness. For your atrial fibrillation please follow-up with cardiology in 1 to 2 weeks, for your event monitor follow-up cardiology in a month - For your stroke please follow-up with Dr. Ortega If any recurrent strokelike symptoms please call 911 Please monitor bruising Discharge Attestations Time Spent in Discharge Care*: greater than 30 min Quality Metrics Clinical Quality Measures [ No reported AMI, CVA or VTE this stay] Coding Level of Care Code 30305 Total time (in minutes) for Discharge: 45 Diagnoses Laceration of scalp S01.01XA Encounter type: initial encounter Hx of aortic valve replacement Z95.2 Difficulty in walking R26.2 Tremor of right hand R25.1 Hypothyroidism, unspecified type E03.9 Hypothyroidism type: unspecified Acute CVA (cerebrovascular accident) I63.9 Atrial fibrillation with RVR I48.91
[2024-12-20 11:10] VITALS: BP 129/87; PULSE 100; RESP 16; TEMP 36.9; O2SAT 95
--- NOTE | 2024-12-20 11:30 | PC.NURSE ---
Report called to Anca AKBAR at [facility] [place]. Attempted to call . No answer, text sent.
[2024-12-20 11:32] VITALS: BP 129/89; PULSE 100; RESP 16; TEMP 36.9; O2SAT 95
--- NOTE | 2024-12-20 11:46 | PC.NURSE ---
calls back and is advised that pt is leaving for [facility]. 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 Pt to vehicle via wheelchair with all belongings.
== END 2024-12-20 11:47 | disposition skilled nursing facility (03) | DRG 65 ==
LOC: ER 12-15 02:23 → MEDSURG 12-15 03:03 → ICU 12-16 21:34 → MEDSURG 12-18 16:02
PROVIDERS: Admitting Provider Internal Medicine; Emergency Provider Physician Assistant; PCP Nurse Practitioner; Visit Provider Family Medicine
DX: I63.9 Cerebral infarction, unspecified (principal); N39.0 Urinary tract infection, site not specified; G83.21 Monoplegia of upper limb affecting right dominant side; R29.704 NIHSS score 4; S01.01XA Laceration without foreign body of scalp, initial encounter; W01.0XXA Fall on same level from slipping, tripping and stumbling without subsequent striking against object, initial encounter; R25.1 Tremor, unspecified; E03.9 Hypothyroidism, unspecified; I48.91 Unspecified atrial fibrillation; I10 Essential (primary) hypertension; M25.611 Stiffness of right shoulder, not elsewhere classified; F22 Delusional disorders; Z95.2 Presence of prosthetic heart valve; Z87.891 Personal history of nicotine dependence; Z85.828 Personal history of other malignant neoplasm of skin
CPT/HCPCS: 36415; 36416; 70450; 72125; 73030; 80048; 80053; 81001; 82962; 83735; 84100; 84443; 84484; 85025; 85651; 85730; 86140; 92507; 92523; 92526; 92610; 93005; 93306; 93880; 96372; 96376; 97110; 97116; 97161; 97165; 97530; 97535; 99285; G0378; J1630; J1644; J1650; J2405; J7030; J9999

== ENCOUNTER 2024-12-31 10:36 | Emergency (ER) | payer MEDICARE, SELFPAY ==
--- OUTSIDE RECORDS SUMMARY | 2024-11-28 08:15 | XMS_ITS ---
Author Organization [facility] Address [address] [place] [phone] Care Team Providers Care Director Of Collections Name Role Phone Radha Gustafson [phone] REASON FOR VISIT 6 month f/u Social History Sex Assigned At : Social History Observation Description Sex Assigned At Female Encounters Encounter Location Date Provider Diagnosis [facility] [address] [address] 11/28/2024 Radha Gustafson Plan Of Treatment Next Appt Details Provider Name:Radha Gustafson , 01/02/2025 02:00:00 PM, [address] [place] [address], [phone], Progress Notes * Michelle VERA KDOB:1950 (74 yo F)Acc No.[id number]:11/28/2024 Patient: Michelle BEDOAY Provider: Gaviota Gustafson :1950 A ge:74 Y S ex:Female Date:11/28/2024 Address:[address] [place] [id number] Subjective: * Chief Complaints: * 1 . 6 month f/u. * Medical History: Objective: * Vitals: Assessment: Plan: * Treatment: * Billing Information: * Visit Code: * Procedure Codes: * Electronic signature of SHANI Lopez iCM on 12/31/2024 at 10:55 AM CDT Sign off status: Pending * Provider: Gaviota Gustafson Date: 0 11/28/2024 Generated for Cassandra ledbetter/Heather/Peter on: 0 12/31/2024 10:55 AM CDT
--- OUTSIDE RECORDS SUMMARY | 2024-12-26 03:30 | XMS_ITS ---
Author Organization [facility] Address [address] [place] [phone] Care Team Providers Care Bun Machine Operator Name Role Phone Radha Gustafson [phone] REASON FOR VISIT fasting labs Social History Sex Assigned At : Social History Observation Description Sex Assigned At Female Encounters Encounter Location Date Provider Diagnosis [facility] [address] [phone] 12/26/2024 Radha Gustafson Plan Of Treatment Next Appt Details Provider Name:Radha Gustafson , 01/02/2025 02:00:00 PM, [address] [place] [address], [phone], Progress Notes * Michelle VERA KDOB:1950 (74 yo F)Acc No.[id number]:12/26/2024 Patient: Michelle BEDOYA Provider: Gaviota Gustafson :1950 A ge:74 Y S ex:Female Date:12/26/2024 Address:[address] [place] [phone] Subjective: * Chief Complaints: * 1 . Fasting labs. * Medical History: Objective: * Vitals: Assessment: Plan: * Treatment: * Billing Information: * Visit Code: * Procedure Codes: * Electronic signature of DAVIS Lopez [email or web address] on 12/31/2024 at 10:55 AM CDT Sign off status: Pending * Provider: Gaviota Gustafson Date: 0 12/26/2024 Generated for Cassandra ledbetter/Heather/Peter on: 0 12/31/2024 10:55 AM CDT
[2024-12-31 10:40] VITALS: BP 151/84; PULSE 71; RESP 16; TEMP 36.8; O2SAT 98; BMI 23.0
--- NOTE | 2024-12-31 10:46 | ED_ITS ---
HPI - Recheck/Abnormal Lab/Rx General: Chief Complaint: Recheck/Abnormal Lab/Rx Stated Complaint: Staple Removal From Head Time Seen by Provider: 12/31/24 10:44 Source: patient Mode of arrival: ambulatory Limitations: no limitations History of Present Illness: 74-year-old female here for staple movab le she had delfin placed on the second to her head she has no complaints denies any headache denies any bleeding. Related Data Previous Rx's ?Medication ?Instructions ?Recorded cetirizine 10 mg capsule (All Day 10 mg PO DAILY PRN A LLERGIES #30 06/07/22 Allergy (cetirizine)) caps cyclobenzaprine 10 mg tablet See Rx Instructions .Rout e 06/07/22 .COMPLEX #30 tabs famotidine 40 mg tablet 40 mg PO DAILY #90 tabs 05/20 03/11 metoprolol tartrate 25 mg tablet 25 mg PO BID #180 tab s 06/07/22 levothyroxine 75 mcg tablet See Rx Instructions .Route 02/17/23 .COMPLEX #90 tabs amiodarone 200 mg tablet (Pacerone) See Rx Instruction s .Route 12/20/24 .COMPLEX #60 tabs apixaban 5 mg tablet (Eliquis) 5 mg PO BID 30 days #60 tabs 12/20/24 aspirin 81 mg tablet,delayed 81 mg PO DAILY 30 days #3 0 tabs 12/20/24 release atorvastatin 40 mg tablet 40 mg PO BEDTIME 30 days #30 tabs 12/20/24 Allergies Allergy/AdvReac Type Severity Reaction Status Date / Time nitrofurantoin (From Allergy ALGY-Anaphy Verified 04/13/22 10:55 Macrobid) laxis Penicillins Allergy ADR-Faintin Verified 04/13/22 10:55 g Review of Systems Const: Denies: fever(s) Eyes: Denies: change in vision Musc: Denies: neck pain Skin/Breast: Denies: pruritus or erythema Neuro: Denies: headache(s) PFS ED PFSH: Medical History (Updated 12/31/24 @ 10:46 by Ander Estrada MD) History of skin cancer Hypothyroidism Hypertension Surgical History (Updated 12/21/24 @ 00:00 by ANGELES Mario) History of heart surgery History of cholecystectomy Social History (Updated 12/15/24 @ 03:50 by Daniel Gonzalez MD) Smoking and tobacco/nicotine status: former use of tobacco/nicotine Quit status (tobacco/nicotine): has quit using Year quit tobacco: 2000 Former quit date comment: Previous 1 pack/day for 30 years Alcohol intake: former Former alcohol use details: Occasional drinking in the past none now and never heavy Substance/Drug Use: never Additional social history: She wants full code as discussed with Daniel Gonzalez MD in the presence of her Jarocho on 12/15/2024 Marital status: Marital status details: Jarocho 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 history: 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 Physical Exam Const: COMMON NORMALS: no acute distress, patient oriented x3 and healthy appearing HENMT: COMMON NORMALS: normocephalic HEAD & SCALP: normocephalic OTHER: Delfin in place incisions clean dry and intact Neck/C-Spine: COMMON NORMALS: full ROM and supple Chest: COMMONS NORMALS: normal inspection of the chest Resp: COMMON NORMALS: normal respiratory effort Cardio: COMMON NORMALS: No murmurs present (Cardio) Extremity: COMMON NORMALS: normal to inspection and full ROM Neuro: COMMON NORMALS: patient oriented x3, moves all extremities and no focal motor deficits Psych: COMMON NORMALS: mental status grossly normal, Normal thought process present and cooperative THOUGHT PROCESS: Normal thought process present Skin: COMMON NORMALS: no rashes or lesions noted and no wounds GENERAL SKIN EXAM: no rashes or lesions noted Course Vital Signs: Vital signs: Vital Signs Temperature 98.3 F 12/31/24 10:40 Pulse Rate 71 12/31/24 10:40 Respiratory Rate 16 12/31/24 10:40 Blood Pressure 151/84 12/31/24 10:40 Pulse Oximetry 98 12/31/24 10:40 Oxygen Delivery Me thod Room Air 12/31/24 10:40 MDM - Recheck/Abnormal Lab/Rx Medical Decision Making Patient presents here for staple removal she is well-appearing here delfin removed she is stable for discharge Medical Records I reviewed the patient's medical records. No radiology studies performed this visit Discharge Plan Discharge Patient Disposition: Home Clinical Impression: Encounter for staple removal Condition: Stable Prescriptions: No Action metoprolol tartrate 25 mg tablet 25 mg PO BID Qty: 180 0RF famotidine 40 mg tablet 40 mg PO DAILY Qty: 90 1RF cyclobenzaprine 10 mg tablet See Rx Instructions .ROUTE .COMPLEX Qty: 30 0RF Dose Instruction: TAKE 1 TABLET BY MOUTH ONCE DAILY NEEDED FOR MUSCLE SPASM Rx Instructions: TAKE 1 TABLET BY MOUTH ONCE DAILY NEEDED FOR MUSCLE SPASM All Day Allergy (cetirizine) 10 mg capsule 10 mg PO DAILY PRN (Reason: ALLERGIES) Qty: 30 0RF levothyroxine 75 mcg tablet See Rx Instructions .ROUTE .COMPLEX Qty: 90 0RF Dose Instruction: Take 1 tablet by mouth once daily Rx Instructions: Take 1 tablet by mouth once daily amiodarone [Pacerone] 200 mg Tablet See Rx Instructions .ROUTE .COMPLEX Qty: 60 0RF Rx Instructions: 2 tabs(400mg) twice daily for 5 days, 1 tab twice daily for 5 days, then 1 tab daily atorvastatin 40 mg Tablet 40 mg PO BEDTIME 30 Days Qty: 30 0RF aspirin 81 mg Tablet,Delayed Release (Dr/Ec) 81 mg PO DAILY 30 Days Qty: 30 0RF Eliquis 5 mg tablet 5 mg PO BID 30 Days Qty: 60 0RF Discharge Orders: Discharge ED (Routine); Ordered 12/31/24 Ordered By: Ander Estrada Referrals: Radha Gustafson, DIRECTOR CHILD [Primary Care Provider, Family Practice] Discharge Diet: Advance as tolerated Discharge Activity: Resume usual activity Patient Instructions: Staple Care (ED) Print Language: [place] Coding Level of Care Code ED Wire Rope Fabrication Supervisor for Joe Pace
--- OUTSIDE RECORDS SUMMARY | 2024-12-31 10:54 | XMS_ITS ---
Author Organization [facility] are Care Team Providers Care High Pressure Firer Name Role Phone Charly Bravo Unavailable Unavailable Allergies and adverse reactions Code CodeSystem Substance Reaction Severity StartDate Concern Status 7984 RXNORM Penicillin Unknown 12/20/2024 active 7454 RXNORM Nitrofurantoin Unknown 12/20/2024 active Care Team Name Role Address Phone Organization Dates Charly Bravo PCP [address] [place], [address], [place] (Office): [facility] 12/20/2024 - 12/28/2024 Goals Section Goals Description Status Target Date All goals will be reviewed a nd updated as needed with completion of the assessment process of the [facility] unless otherwise stated in the individualized goal Active 03/20/2025 Resident Will Be Able to Effectively Communicate Basic Needs Active 03/20/2025 Resident Will Be Free of Complications of Immobi lity Active 03/20/2025 Resident Will Be Free of Signs / Symptoms of Dep ression Active 03/20/2025 Resident Will Maintain Baseline Mental Status Ac tive 03/20/2025 Resident Will Maintain Optimal Tissue Perfusion Active 03/20/2025 Resident Will Maintain Safe Balance and Coordina tion Active 03/20/2025 Resident Will Remain Free of Stroke Like symptom s Active 03/20/2025 Resident Will Show No Signs / Symptoms of Bleedi ng Active 03/20/2025 Resident will not have adver se effects r/t usage of medications with Black Box Warnings. Active 03/20/2025 Resident's Skin Will Remain Intact Active 03/20/2025 The resident will be free of minor injury throug h the review date. Active 03/20/2025 The resident will not sustai n serious injury through the review date. Active 03/20/2025 Functional Status Code Name Recorded Time Value Entered By Ambulation 12/22/2024 Supervision [facility] Ambulation 12/22/2024 Supervision [facility] Ambulation 12/22/2024 Not assessed [facility] Ambulation 12/22/2024 Not assessed [facility] Dressing 12/22/2024 Supervision [facility] Feeding or Eating 12/22/2024 Not assessed [facility] ld Toileting 12/22/2024 Extensive Assistance [facility] Transferring 12/22/2024 Extensive Assistance [facility] Immunizations Immunization Status Vaccine Details Vaccine Code CodeSystem Date Notes TB 1 Step Mantoux (PPD) completed tuberculin skin test; unspecified formulation lotNumber: [id number] expiry: 04/18/2026 Mfg: Apisol Given 1.0 ml Right Forearm subcutaneously 98 CVX created date: 12/21/2024 consent date: 12/20/2024 administere d date: 12/21/2024 Medications Section Medication Name Status Code CodeSystem Dose Route Frequency Admin Type Sig Text Start Date End Date Amiodarone HCl Oral Tablet 200 MG active 940865 RXNORM 1 tablet Oral two times a day Routine Give 1 tablet by mouth two times a day for UNSPEC IFIED ATRIAL FIBRIL LATION for 5 Days 12/31 Famotidine Oral Tablet 40 MG active 040728 RXNORM 1 tablet Oral one time a day Routine Give 1 tablet by mouth one time a day for FUNCTI ONAL DYSPEP AZIZA 2024 - Cetirizine HCl Oral Tablet 10 MG active 776988 8 RXNORM 1 tablet Oral one time a day Routine Give 1 tablet by mouth one time a day for ALLERG IC RHINIT IS, UNSPEC IFIED 2024 - Tuberculin PPD Solution 5 UNIT/0.1ML active 096677 RXNORM 0.1 ml Intrade rmal one time a day Routine Inject 0.1 ml intrad ermall y one time a day for TB (Tuber culosi s) Screen ing for 1 Admini strati ons AND Inject 0.1 ml intrad ermall y one time a day every 14 day(s) for TB (Tuber culosi s) Screen ing for 1 Admini strati ons 12/21 912179 RXNORM 0.1 ml Intrade rmal one time a day Routine Inject 0.1 ml intrad ermall y one time a day for TB (Tuber culosi s) Screen ing for 1 Admini strati ons AND Inject 0.1 ml intrad ermall y one time a day every 14 day(s) for TB (Tuber culosi s) Screen ing for 1 Admini strati ons 01/17 Cyclobenzapri ne HCl Oral Tablet 10 MG active 834454 RXNORM 1 tablet Oral as needed PRN Give 1 tablet by mouth every 24 hours as needed for MUSCLE SPASM OF BACK 2024 - Apixaban Oral Tablet 5 MG active 692326 5 RXNORM 1 tablet Oral two times a day Routine Give 1 tablet by mouth two times a day for UNSPEC IFIED ATRIAL FIBRIL LATION 2024 - Ciprofloxacin HCl Oral Tablet 250 MG complete d 363230 RXNORM 1 tablet Oral two times a day Routine Give 1 tablet by mouth two times a day for OTHER ABNORM AL FINDIN GS IN URINE for 2 Days 12/22 Amiodarone HCl Oral Tablet 200 MG active 216287 RXNORM 1 tablet Oral one time a day Routine Give 1 tablet by mouth one time a day for UNSPEC IFIED ATRIAL FIBRIL LATION 2024 - Levothyroxine Sodium Oral Tablet 75 MCG active 800402 RXNORM 1 tablet Oral in the morning Routine Give 1 tablet by mouth in the mornin g for HYPOTH YROIDI SM, UNSPEC IFIED 2024 - Amiodarone HCl Oral Tablet 400 MG complete d 139445 RXNORM 1 tablet Oral two times a day Routine Give 1 tablet by mouth two times a day for UNSPEC IFIED ATRIAL FIBRIL LATION for 5 Days 12/26 Aspirin Oral Tablet Delayed Release 81 MG active 979179 RXNORM 1 tablet Oral one time a day Routine Give 1 tablet by mouth one time a day for UNSPEC IFIED ATRIAL FIBRIL LATION 2024 - Metoprolol Tartrate Oral Tablet 25 MG active 594762 RXNORM 1 tablet Oral two times a day Routine Give 1 tablet by mouth two times a day for HYPERT ENSIVE HEART DISEAS E WITHOU T HEART FAILUR E 2024 - Atorvastatin Calcium Oral Tablet 40 MG active 771956 RXNORM 1 tablet Oral at bedtime Routine Give 1 tablet by mouth at bedtim e for HYPERL IPIDEM IA, UNSPEC IFIED 2024 - Milk of Magnesia Suspension 1200 MG/15ML active 685531 RXNORM 15 ml Oral as needed PRN Give 15 ml by mouth every 24 hours as needed for consti pation May have one dose in 24hrs for sympto ms of consti pation 2024 - amLODIPine Besylate Oral Tablet 2.5 MG active 643847 RXNORM 1 tablet Oral one time a day Routine Give 1 tablet by mouth one time a day 2024 - Mental Status Section Date Assessment Total Score Description 12/25/2024 BIMS 11 moderate cognit alexander impairment CAM 2 Delirium indica evelyn PHQ-9 00 12/25/2024 BIMS 11 moderate cognit alexander impairment CAM 2 Delirium indica evelyn PHQ-9 00 Plan of Treatment Section Test Code Code System Name Date URINARY TRACT MICROBIOTA ASS AY 12/23/2024 12/23/2024 URINARY TRACT MICROBIOTA ASS AY 12/23/2024 URINARY TRACT MICROBIOTA ASS AY 12/23/2024 12/23/2024 URINARY TRACT MICROBIOTA ASS AY 12/23/2024 Problems Problem # Description Date of onset Resolved Date Code CodeSystem Concern Status 1 ALLERGIC RHINITIS, UNSPECIFIED 12/20/[address] active 2 CEREBRAL INFARCTION, UNSPECIFIED 12/20/[address] active 3 DIFFICULTY IN WALKING, NOT ELSEWHERE CLASSIFIED 12/20/[address] active 4 FUNCTIONAL DYSPEPSIA 12/20/[address] active 5 HYPERLIPIDEMIA, UNSPECIFIED 12/20/[address] active 6 HYPERTENSIVE HEART DISEASE WITHOUT HEART FAILURE 12/20/[address] active 7 HYPOTHYROIDISM, UNSPECIFIED 12/20/[address] active 8 LACERATION WITHOUT FOREIGN BODY OF SCALP, SUBSEQUENT ENCOUNTER 12/20/[address] active 9 MUSCLE SPASM OF BACK 12/20/20242029721151849 SNOMED CT active 10 OTHER ABNORMAL FINDINGS IN URINE 12/20/[address] active 11 PRESENCE OF PROSTHETIC HEART VALVE 12/20/[address] active 12 TREMOR, UNSPECIFIED 12/20/[address] active 13 UNSPECIFIED ATRIAL FIBRILLATION 12/20/2024 35769344 [employer] active Reason for Referral No Reasons for Referral Entered Diagnostic Results Result Code Code System Date Test Result Interpretation Reference Range Status Notes FW3325- 6 LOINC 12/25 4 - Urine Cultures / [place] Count / URINALYSIS W/ MICRO EXAM / UTI [facility] [place] / URINARY TRACT MICROBIOTA ASSAY / URINARY TRACT MICROBIOTA SUSCEPTIBILITY / Cogent- Resulted Result for: Michelle Vera ( 950, F) 123-999 99-9 LOINC 12/23 CASTS (UA) - Waxy Value: [none] Units: Normal - Final 123-999 99-9 LOINC 12/23 CASTS (UA) - Cellular Cast Value: [none] Units: Normal - Final 123-999 99-9 LOINC 12/23 CRYSTALS (UA) - Cystine Value: [none] Units: Normal - Final 123-999 99-9 LOINC 12/23 CRYSTALS (UA) - Leucine Value: [none] Units: Normal - Final 123-999 99-9 LOINC 12/23 CRYSTALS (UA) - Tyrosine Value: [none] Units: Normal - Final 123-999 99-9 LOINC 12/23 CRYSTALS (UA) - Triple Phosphate Value: [none] Units: Normal - Final 123-999 99-9 LOINC 12/23 CRYSTALS (UA) - Uric Acid Value: [none] Units: Normal - Final 123-999 99-9 LOINC 12/23 CRYSTALS (UA) - Calcium Phosphate Value: [none] Units: Normal - Final 8248-7 LOINC 12/23 SPERM (UA) Value: None Units: Normal - Final 123-999 99-9 LOINC 12/23 TRICHOMONAS (UA) Value: [none] Units: Normal None Final 123-999 99-9 LOINC 12/23 Transitional Epi Cell Value: [none] Units: Normal <3-5 Final 123-999 99-9 LOINC 12/23 CRYSTALS (UA) - Amorphous Phosphate Value: [none] Units: Normal - Final 123-999 99-9 LOINC 12/23 CRYSTALS (UA) - Amorphous Urate Value: [none] Units: Normal - Final 123-999 99-9 LOINC 12/23 CRYSTALS (UA) - Calcium Oxalate Value: [none] Units: Normal - Final 123-999 99-9 LOINC 12/23 Escherichia coli Value: . Units: Normal Not Detected Pending 123-999 99-9 LOINC 12/23 Enterobacter cloacae Value: . Units: Normal Not Detected Pending 123-999 99-9 LOINC 12/23 Providencia stuartii Value: . Units: Normal Not Detected Pending 123-999 99-9 LOINC 12/23 Staphylococcus saprophyticus Value: . Units: Normal Not Detected Pending 123-999 99-9 LOINC 12/23 Klebsiella pneumonia Value: . Units: Normal Not Detected Pending 123-999 99-9 LOINC 12/23 Klebsiella oxytoca Value: . Units: Normal Not Detected Pending 123-999 99-9 LOINC 12/23 Sushila glabrata Value: . Units: Normal Not Detected Pending 123-999 99-9 LOINC 12/23 Streptococcus agalactiae Value: . Units: Normal Not Detected Pending 123-999 99-9 LOINC 12/23 Acinetobacter baumannii Value: . Units: Normal Not Detected Pending 123-999 99-9 LOINC 12/23 Pseudomonas aeruginosa Value: . Units: Normal Not Detected Pending 123-999 99-9 LOINC 12/23 Sushila SPP (ADTP) Value: . Units: Normal Not Detected Pending 123-999 99-9 LOINC 12/23 Serratia marcescens Value: . Units: Normal Not Detected Pending 123-999 99-9 LOINC 12/23 Sushila krusei Value: . Units: Normal Not Detected Pending 123-999 99-9 LOINC 12/23 Morganella morganii Value: . Units: Normal Not Detected Pending 123-999 99-9 LOINC 12/23 Klebsiella aerogenes Value: . Units: Normal Not Detected Pending 123-999 99-9 INC 12/23 Enterococcus Spp. Value: . Units: Normal Not Detected Pending 123-999 99-9 [facility] 12/23 Citrobacter Spp. Value: . Units: Normal Not Detected Pending 123-999 99-9 INC 12/23 Proteus Spp Value: . Units: Normal Not Detected Pending 123-999 99-9 [facility] 12/23 CASTS (UA) - Hyaline Value: [none] Units: Normal - Final 123-999 99-9 INC 12/23 CASTS (UA) - Granular Value: [none] Units: Normal - Final 123-999 99-9 [facility] 12/23 CRYSTALS (UA) - UnClassified Value: [none] Units: Normal - Final 123-999 99-9 [facility] 12/23 CRYSTALS (UA) - X-ray Dye Crystals Value: [none] Units: Normal - Final 123-999 99-9 [facility] 12/23 CASTS (UA) - Broad Hyaline Value: [none] Units: Normal - Final 123-999 99-9 [facility] 12/23 CASTS (UA) - RBC Cast Value: [none] Units: Normal - Final 8247-9 [facility] 12/23 MUCOUS (UA) Value: RARE Units: Abnormal - Final 5822-2 [facility] 12/23 YEAST (UA) Value: [none] Units: Normal None Final 95262-0 [facility] 12/23 BACTERIA (UA) Value: RARE Units: Normal < FEW Final 18972-1 [facility] 12/23 SQUAMOUS EPITHELIAL CELLS (UA) Value: 0-5 Units: Normal <11-20 Final 798-9 [facility] 12/23 RBC (UA) Value: None Units: Normal <6-10 HPF Final 99111-9 [facility] 12/23 NITRITE (UA) Value: Negative Units: Normal <+1 Final 49452-6 [facility] 12/23 LEUKOCYTE ESTERASE (UA) Value: Negative Units: Normal <75 Gurpreet/uL Final 2965-2 [facility] 12/23 SPECIFIC GRAVITY (UA) Value: 1.014 Units: Normal 1.005-1.01 5 Final 3107-0 [facility] 12/23 UROBILINOGEN (UA) Value: Normal Units: Normal <2 mg/dL Final 2756-5 [facility] 12/23 pH (UA) Value: 6.5 Units: Normal 5.0-8.0 Final 123-999 99-9 [facility] 12/23 BLOOD (UA) Value: NEGATIVE Units: Normal <0.06 mg/dL Final 2888-6 [facility] 12/23 PROTEIN (UA) Value: NEGATIVE Units: Normal <=30 mg/dL Final 77615-4 [facility] 12/23 KETONES (UA) Value: NEGATIVE Units: Normal <10 mg/dL Final 1976-8 [facility] 12/23 BILIRUBIN (UA) Value: NEGATIVE Units: Normal <0.5 mg/dL Final 2349-9 [facility] 12/23 GLUCOSE (UA) Value: Normal Units: Normal <70 mg/dL Final 13825-0 [facility] 12/23 CLARITY (UA) Value: Clear Units: Normal - Final 5778-6 [facility] 12/23 COLOR (UA) Value: Yellow Units: Normal - Final 123-999 99-9 [facility] 12/23 Cogent- Value: See Attachment Units: Normal Final 123-999 99-9 [facility] 12/23 URINARY TRACT MICROBIOTA SUSCEPTIBILITY Value: . Units: Normal - Pending [facility]-999 99-9 [facility] 12/[address] [place] Value: . Units: Normal - Pending 123-999 99-9 [facility] 12/23 4 - Urine Cultures / [place] Count Value: . Units: Normal - Pending 123-999 99-9 [facility] 12/23 Sushila albicans Value: . Units: Normal Not Detected Pending 123-999 99-9 [facility] 12/23 CASTS (UA) - Waxy Value: [none] Units: Normal - Final 123-999 99-9 [facility] 12/23 CASTS (UA) - Cellular Cast Value: [none] Units: Normal - Final 123-999 99-9 [facility] 12/23 CRYSTALS (UA) - Cystine Value: [none] Units: Normal - Final 123-999 99-9 [facility] 12/23 CRYSTALS (UA) - Leucine Value: [none] Units: Normal - Final 123-999 99-9 LOINC 12/23 CRYSTALS (UA) - Tyrosine Value: [none] Units: Normal - Final 123-999 99-9 LOINC 12/23 CRYSTALS (UA) - Triple Phosphate Value: [none] Units: Normal - Final 123-999 99-9 LOINC 12/23 CRYSTALS (UA) - Uric Acid Value: [none] Units: Normal - Final 123-999 99-9 LOINC 12/23 CRYSTALS (UA) - Calcium Phosphate Value: [none] Units: Normal - Final 8248-7 LOINC 12/23 SPERM (UA) Value: None Units: Normal - Final 123-999 99-9 LOINC 12/23 TRICHOMONAS (UA) Value: [none] Units: Normal None Final 123-999 99-9 LOINC 12/23 Transitional Epi Cell Value: [none] Units: Normal <3-5 Final 123-999 99-9 LOINC 12/23 CRYSTALS (UA) - Amorphous Phosphate Value: [none] Units: Normal - Final 123-999 99-9 LOINC 12/23 CRYSTALS (UA) - Amorphous Urate Value: [none] Units: Normal - Final 123-999 99-9 LOINC 12/23 CRYSTALS (UA) - Calcium Oxalate Value: [none] Units: Normal - Final 123-999 99-9 LOINC 12/23 Escherichia coli Value: . Units: Normal Not Detected Pending 123-999 99-9 LOINC 12/23 Enterobacter cloacae Value: . Units: Normal Not Detected Pending 123-999 99-9 LOINC 12/23 Providencia stuartii Value: . Units: Normal Not Detected Pending 123-999 99-9 LOINC 12/23 Staphylococcus saprophyticus Value: . Units: Normal Not Detected Pending 123-999 99-9 LOINC 12/23 Klebsiella pneumonia Value: . Units: Normal Not Detected Pending 123-999 99-9 LOINC 12/23 Klebsiella oxytoca Value: . Units: Normal Not Detected Pending 123-999 99-9 LOINC 12/23 Sushila glabrata Value: . Units: Normal Not Detected Pending 123-999 99-9 LOINC 12/23 Streptococcus agalactiae Value: . Units: Normal Not Detected Pending 123-999 99-9 LOINC 12/23 Acinetobacter baumannii Value: . Units: Normal Not Detected Pending 123-999 99-9 LOINC 12/23 Pseudomonas aeruginosa Value: . Units: Normal Not Detected Pending 123-999 99-9 LOINC 12/23 Sushila SPP (ADTP) Value: . Units: Normal Not Detected Pending 123-999 99-9 LOINC 12/23 Serratia marcescens Value: . Units: Normal Not Detected Pending 123-999 99-9 LOINC 12/23 Sushila krusei Value: . Units: Normal Not Detected Pending 123-999 99-9 LOINC 12/23 Morganella morganii Value: . Units: Normal Not Detected Pending 123-999 99-9 LOINC 12/23 Klebsiella aerogenes Value: . Units: Normal Not Detected Pending 123-999 99-9 LOINC 12/23 Enterococcus Spp. Value: . Units: Normal Not Detected Pending 123-999 99-9 LOINC 12/23 Citrobacter Spp. Value: . Units: Normal Not Detected Pending 123-999 99-9 LOINC 12/23 Proteus Spp Value: . Units: Normal Not Detected Pending 123-999 99-9 LOINC 12/23 CASTS (UA) - Hyaline Value: [none] Units: Normal - Final 123-999 99-9 LOINC 12/23 CASTS (UA) - Granular Value: [none] Units: Normal - Final 123-999 99-9 LOINC 12/23 CRYSTALS (UA) - UnClassified Value: [none] Units: Normal - Final 123-999 99-9 LOINC 12/23 CRYSTALS (UA) - X-ray Dye Crystals Value: [none] Units: Normal - Final 123-999 99-9 LOINC 12/23 CASTS (UA) - Broad Hyaline Value: [none] Units: Normal - Final 123-999 99-9 LOINC 12/23 CASTS (UA) - RBC Cast Value: [none] Units: Normal - Final 8247-9 [facility] 12/23 MUCOUS (UA) Value: RARE Units: Abnormal - Final 5822-2 [facility] 12/23 YEAST (UA) Value: [none] Units: Normal None Final 50709-0 [facility] 12/23 BACTERIA (UA) Value: RARE Units: Normal < FEW Final 86266-8 [facility] 12/23 SQUAMOUS EPITHELIAL CELLS (UA) Value: 0-5 Units: Normal <11-20 Final 798-9 [facility] 12/23 RBC (UA) Value: None Units: Normal <6-10 HPF Final 44361-5 [facility] 12/23 NITRITE (UA) Value: Negative Units: Normal <+1 Final 14883-8 [facility] 12/23 LEUKOCYTE ESTERASE (UA) Value: Negative Units: Normal <75 Gurpreet/uL Final 2965-2 [facility] 12/23 SPECIFIC GRAVITY (UA) Value: 1.014 Units: Normal 1.005-1.01 5 Final 3107-0 [facility] 12/23 UROBILINOGEN (UA) Value: Normal Units: Normal <2 mg/dL Final 2756-5 [facility] 12/23 pH (UA) Value: 6.5 Units: Normal 5.0-8.0 Final 123-999 99-9 [facility] 12/23 BLOOD (UA) Value: NEGATIVE Units: Normal <0.06 mg/dL Final 2888-6 [facility] 12/23 PROTEIN (UA) Value: NEGATIVE Units: Normal <=30 mg/dL Final 01805-2 [facility] 12/23 KETONES (UA) Value: NEGATIVE Units: Normal <10 mg/dL Final 1977-8 [facility] 12/23 BILIRUBIN (UA) Value: NEGATIVE Units: Normal <0.5 mg/dL Final 2349-9 [facility] 12/23 GLUCOSE (UA) Value: Normal Units: Normal <70 mg/dL Final 88344-8 [facility] 12/23 CLARITY (UA) Value: Clear Units: Normal - Final 5778-6 [facility] 12/23 COLOR (UA) Value: Yellow Units: Normal - Final 123-999 99-9 [facility] 12/23 Cogent- Value: See Attachment Units: Normal Final 123-999 99-9 INC 12/23 URINARY TRACT MICROBIOTA SUSCEPTIBILITY Value: . Units: Normal - Pending 123-999 99-9 INC 12/[address] [place] Value: . Units: Normal - Pending 123-999 99-9 [facility] 12/23 4 - Urine Cultures / [place] Count Value: . Units: Normal - Pending 123-999 99-9 [facility] 12/23 Sushila albicans Value: . Units: Normal Not Detected Pending 73565-5 [facility] 12/23 WBC (UA) Value: 0-5 Units: [HPF] Normal No Range Final 95748-6 [facility] 12/23 WBC (UA) Value: 0-5 Units: [HPF] Normal No Range Final Test Code Code System Name Date URINALYSIS W/ MICRO EXAM 11/2024 URINARY TRACT MICROBIOTA ASS AY 12/23/2024 URINALYSIS W/ MICRO EXAM 11/202412/23/2024 URINARY TRACT MICROBIOTA ASS AY 12/23/2024 URINALYSIS W/ MICRO EXAM 11/2024 URINARY TRACT MICROBIOTA ASS AY 12/23/2024 URINALYSIS W/ MICRO EXAM 11/202412/23/2024 URINARY TRACT MICROBIOTA ASS AY 12/23/2024 URINALYSIS W/ MICRO EXAM 11/2024 Social History Social History Observation Description Start Date End Date Code Code System Current Smoking Status Tobacco smoking consumption unknown 254601552 SNOMED CT Sex Assigned At Female 1950 47936-4 [facility] Gender Identity Female [id number] [facility] [address] Vital Signs Code Code System Vitals Name Values and Units Timing Information 8462-4 [facility] Blood Pressure-Diastolic Value=94 Un its=mmHg 12/27/2024 8480-6 [facility] Blood Pressure-Systolic Yknmy=489 Un its=mmHg 12/27/2024 8867-4 [facility] Heart rate Value=98.0 Units=/min 03/2025 9279-1 [facility] Respiratory Rate Value=18.0 Units=/m in 12/27/2024 8310-5 [facility] Body Temperature Value=97.4 Units= F 12/27/2024 26368-2 [facility] O2 % BldC Oximetry Value=97.0 Units= % 12/27/2024 44852-8 [facility] Weight Wuiid=930.0 Units=Lbs 12/2024 8302-2 [facility] Height Value=63.0 Units=Inches 12/20/2024
--- OUTSIDE RECORDS SUMMARY | 2024-12-31 10:55 | XMS_ITS | Patient Health Record ---
Author Organization [employer] [email or web address] Address [address] [place] [address] Care Team Providers Care Coroner Name Role Phone Radha Gustafson Unavailable [phone] Allergies Allergen (clinical drug ingredient) Drug/Non Drug Allergy documented on EMR Reaction Allergy Type Onset Date Status nitrofurantoin, macrocrystals / nitrofurantoin, monohydrate Macrobid rash Drug Allergy 04/18/2023 Active Penicillin hives Drug Allergy Active Results Component Value Reference Range Notes URINALYSIS, COMPLETE W/REFLE X TO CULTURE (6910) Reviewed date:10/07/2024 08:12:48 PM Interpretation: Performing Lab:[place], [facility]-[id number] [facility], PdxcjvXU[address] Vince Garcia MD Notes/Report: 0 0 0 [...] TO FOLLOW CULTURE, URINE, ROUTINE Micro Number: [id number] Test Status: Final Specimen Source: Urine Specimen Quality: Adequate Result: Less than 10,000 CFU/mL of single Gram positive organism isolated. No further testing will be performed. If clinically indicated, recollection using a method to minimize contamination, with prompt transfer to Urine Culture Transport Tube, is recommended. CULTURE, URINE, ROUTINE SEE NOTE CULTURE INDICATED - RESULTS TO FOLLOW CULTURE, URINE, ROUTINE Micro Number: [id number] Test Status: Final Specimen Source: Urine Specimen Quality: Adequate Result: Less than 10,000 CFU/mL of single Gram positive organism isolated. No further testing will be performed. If clinically indicated, recollection using a method to minimize contamination, with prompt transfer to Urine Culture Transport Tube, is recommended. Urine Dipstick Test Reviewed date:10/07/2024 08:12:48 PM Interpretation:Abnormal Performing Lab: Notes/Report: Abnormal Glucose neg neg - 4+ Bilirubin neg neg - 3+ Ketones neg neg - 4+ Specific [place] 1.005 1 - 1.030 Blood neg neg - 3+ Ph 6.0 5.0 - 9.0 Protein neg neg - 4+ Urobilinogen neg (0.2) 0.2 - 12 mg/dl Nitrites neg neg - pos Leukocytes 1+ (70) neg - 3+ TSH W/REFLEX TO FT4 (43965) Reviewed date:01/11/2024 06:59:43 PM Interpretation: Performing Lab:[facility]-Hrotus95041 [place] JoeaKS[address] Vince Garcia MD Notes/Report: 0 0 0 TSH W/REFLEX TO FT4 2.13 0.40-4.50 mIU/L CBC (INCLUDES DIFF/PLT) (639 9) Reviewed date:01/11/2024 06:59:43 PM Interpretation: Performing Lab:Marty CASTANO-Joqgve11327Migue OsorioaKS[address] Vince Garcia MD Notes/Report: 0 0 0 WHITE BLOOD CELL COUNT 6.1 3.8-10.8 Thousand/ uL RED BLOOD CELL COUNT 4.27 3.80-5.10 Million/uL HEMOGLOBIN 13.0 11.7-15.5 g/dL HEMATOCRIT 38.3 35.0-45.0 % MCV 89.7 80.0-100.0 fL MCH 30.4 27.0-33.0 pg MCHC 33.9 32.0-36.0 g/dL RDW 13.0 11.0-15.0 % PLATELET COUNT 165 140-400 Thousand/uL MPV 12.0 7.5-12.5 fL ABSOLUTE NEUTROPHILS 3489 9770-9813 cells/uL ABSOLUTE LYMPHOCYTES 2062 850-3900 cells/uL ABSOLUTE MONOCYTES 427 200-950 cells/uL ABSOLUTE EOSINOPHILS 79 15-500 cells/uL ABSOLUTE BASOPHILS 43 0-200 cells/uL NEUTROPHILS 57.2 LYMPHOCYTES 33.8 MONOCYTES 7.0 EOSINOPHILS 1.3 BASOPHILS 0.7 COMPREHENSIVE METABOLIC PANE L (65479) Reviewed date:01/11/2024 06:59:43 PM Interpretation: Performing Lab:KS, [employer]-Hvaxoa69664 [facility], JkkoexMJ[address] Vince Garcia MD Notes/Report: 0 0 0 [...] 22 10-35 U/L ALT 13 6-29 U/L Urine Dipstick Test Reviewed date:01/09/2024 01:35:12 PM Interpretation:Normal Performing Lab: Notes/Report: Normal Glucose neg neg - 4+ Bilirubin neg neg - 3+ Ketones neg neg - 4+ Specific [place] 1.010 1 - 1.030 Blood neg neg - 3+ Ph 6.0 5.0 - 9.0 Protein neg neg - 4+ Urobilinogen neg 0.2 - 12 mg/dl Nitrites neg neg - pos Leukocytes neg neg - 3+ CULTURE, URINE, ROUTINE (395 ) Reviewed date:05/22/2024 11:05:00 AM Interpretation: Performing Lab:KS, [employer] [facility]-Lqbalc05267 [facility], WpmcuzTL[address] Vince Garcia MD Notes/Report: 0 CULTURE, URINE, ROUTINE SEE NOTE CULTURE, URINE, ROUTINE Micro Number: [id number] Test Status: Final Specimen Source: Clean catch [...] cefdinir, cefpodoxime, cefprozil, cefuroxime, cephalexin and loracarbef. Urine Dipstick Test Reviewed date:05/22/2024 11:05:00 AM Interpretation:Abnormal Performing Lab: Notes/Report: Abnormal Glucose neg neg - 4+ Bilirubin neg neg - 3+ Ketones neg neg - 4+ Specific [place] 1.005 1 - 1.030 Blood neg neg - 3+ Ph neg 5.0 - 9.0 Protein neg neg - 4+ Urobilinogen neg 0.2 - 12 mg/dl Nitrites neg neg - pos Leukocytes 3+ (500) neg - 3+ TSH W/REFLEX TO FT4 (22728) Reviewed date:03/31/2024 05:51:30 PM Interpretation: Performing Lab:Marty CASTANO-Mjxfcj79895 Cory JoeGzorpaHH[address] Vince Garcia MD Notes/Report: 0 0 0 0 TSH W/REFLEX TO FT4 1.84 0.40-4.50 mIU/L CBC (INCLUDES DIFF/PLT) (639 9) Reviewed date:03/31/2024 05:51:30 PM Interpretation: Performing Lab:Marty CASTANOexa10101 Cory JoeWallghUO[address] Vince Garcia MD Notes/Report: 0 0 0 [...] MPV 11.8 7.5-12.5 fL ABSOLUTE NEUTROPHILS 3260 0006-4721 cells/uL ABSOLUTE LYMPHOCYTES 8262 679-1380 cells/uL ABSOLUTE MONOCYTES 365 200-950 cells/uL ABSOLUTE EOSINOPHILS 80 15-500 cells/uL ABSOLUTE BASOPHILS 40 0-200 cells/uL NEUTROPHILS 57.2 LYMPHOCYTES 34.3 MONOCYTES 6.4 EOSINOPHILS 1.4 BASOPHILS 0.7 BASIC METABOLIC PANEL (38388 ) Reviewed date:03/31/2024 05:51:30 PM Interpretation: Performing Lab:OMAIRA [employer]-Rqleti61582 [facility], MymstoRP[address] Vince Garcia MD Notes/Report: 0 0 0 0 GLUCOSE 92 65-99 mg/dL Fasting reference interval UREA NITROGEN (BUN) 6 7-25 mg/dL CREATININE 0.58 0.60-1.00 mg/dL EGFR 95 > OR = 60 mL/min/1.73m2 BUN/CREATININE RATIO 10 6-22 (calc) SODIUM 138 135-146 mmol/L POTASSIUM 4.2 3.5-5.3 mmol/L CHLORIDE 100 98-110 mmol/L CARBON DIOXIDE 32 20-32 mmol/L CALCIUM 9.6 8.6-10.4 mg/dL LIPID PANEL, STANDARD (7600) Reviewed date:03/31/2024 05:51:30 PM Interpretation: Performing Lab:OMAIRA [employer] [facility]-Cxfxgu75695 [facility], CktujnJX[address] Vince Garcia MD Notes/Report: 0 0 0 0 CHOLESTEROL, TOTAL 220 <200 mg/dL HDL CHOLESTEROL 81 > OR = 50 mg/dL TRIGLYCERIDES 130 <150 mg/dL LDL-CHOLESTEROL 114 Reference range: <100 Desirable range <100 mg/dL for primary prevention; <70 mg/dL for patients with CHD or diabetic patients with > or = 2 CHD risk factors. LDL-C is now calculated using the Pranav-Kymberly calculation, which is a validated novel method providing better accuracy than the Friedewald equation in the estimation of LDL-C. Pranav PAREDES et al. CHAN. 2013;310(19): 1312-4400 (http://[email or web address]/RSE774) CHOL/HDLC RATIO 2.7 <5.0 (calc) NON HDL CHOLESTEROL 139 <130 mg/dL (calc) For patients with diabetes plus 1 major ASCVD risk factor, treating to a non-HDL-C goal of <100 mg/dL (LDL-C of <70 mg/dL) is considered a therapeutic option. Reason For Referral No Information Medications Medication SIG (Take, Route, Frequency, Duration) Notes Start Date End Date Status Famotidine 40 MG 1 tablet as needed Orally Once a day; Duration: 90 days Active Meclizine HCl 25 MG 1 tablet as needed Oral every 12 hrs; Duration: 30 days Not-Taking Rvgeyqhr-Srerqdecw-WA 1 % 4 drops into a ffected [...] HX OF 25YR SMOKING HX, QUIT 10YR 2011 Problems Problem Type SNOMED Code ICD Code Onset Dates Problem Status W/U Status Risk Notes Problem Hypertensive heart failure (28509067) Hypertensive heart disease with heart failure (I11.0) Active confirmed Problem Secondary hypertension (47329598) Other secondary hypertension (I15.8) Active confirmed Problem Dysuria (14887564) Dysuria (R30.0) Active confirmed Problem Visual hallucinations (28448497) Visual hallucinations (R44.1) Active confirmed Problem Hallucinations (4184970) Hallucinations, unspecified (R44.3) Active confirmed Problem Fatigue (80317763) Other fatigue (R53.83) Active confirmed Problem Primary hypertension (46920453) Primary hypertension (I10) Active confirmed Problem Hypersomnia (99682285) Hypersomnia (G47.10) Active confirmed Problem Heart murmur (60633470) Heart murmur (R01.1) Active confirmed Problem Constipation (72010823) Constipation, unspecified constipation type (K59.00) Active confirmed Problem Postmenopausal state (26302725) Post-menopausal (Z78.0) Active confirmed Problem Hypothyroidism (55956407) Hypothyroidism, unspecified type (E03.9) Active confirmed Problem Acute urinary tract infection (604230317) Acute UTI (N39.0) Active confirmed Problem History of heart valve repair with prosthesis (907188903652209) Aortic valve replaced (Z95.2) Active confirmed Problem Heart failure (09142302) Heart failure, unspecified HF chronicity, unspecified heart failure type (I50.9) Active confirmed Problem Multiple seborrheic keratoses (198114298) Seborrheic keratoses (L82.1) Active confirmed Problem Reactive depression (situational) (01779600) Situational depression (F43.21) Active confirmed Vital Signs Heart Rate 78 /min 10/04/2024 Temperature 98.1 degrees Fahrenheit 10/04/2024 Height-cm 153.67 cm 10/04/2024 Oximetry 98 % 10/04/2024 Blood pressure diastolic 80 mm Hg 10/04/2024 Weight-kg 62.6 kg 10/04/2024 Height 60.5 in 10/04/2024 Blood pressure systolic 136 mm Hg 10/04/2024 Weight 138 lbs 10/04/2024 BMI 26.5 kg/m2 10/04/2024 Encounters Encounter Location Date Provider Diagnosis On license of [facility] [address] [address] 01/09/2024 Radha Gustafson Dysuria R30.0 and Other fatigue R53.83 On license of [facility] [address] [place] [address] 03/27/2024 Radha Gustafson Hypertensive heart disease with heart failure I11.0 ; Heart failure, unspecified HF chronicity, unspecified heart failure type I50.9 ; Situational depression F43.21 ; Post-menopausal Z78.0 ; Hypothyroidism, unspecified type E03.9 ; Heart murmur R01.1 ; Other fatigue R53.83 and Aortic valve replaced Z95.2 On license of [facility] [address] [place] [address] 05/16/2024 Radha Dysuria R30.0 ; Acut e UTI N39.0 ; Urinary urgency R39.15 and Vaginal discharge N89.8 On license of [facility] [address] [place] [address] 05/30/2024 Radha Eugene Heart murmur R01.1 ; Acute vaginitis N76.0 and Seborrheic keratoses L82.1 On license of [facility] [address] [place] [address] 09/25/2024 Radha Eugene Hypothyroidism, unspecified type E03.9 ; Intertrigo L30.4 ; Hypertensive heart disease with heart failure I11.0 ; Acute foreign body of left ear canal, initial encounter T16.2XXA ; Heart failure, unspecified HF chronicity, unspecified heart failure type I50.9 ; Seborrheic dermatitis L21.9 and Impaired mobility Z74.09 On license of [facility] [address] [place] [address] 10/04/2024 Radha Eugene Hallucinations, unspecified R44.3 ; Acute UTI N39.0 and Hypertensive heart disease with heart failure I11.0 On license of [facility] [address] [place] [address] 01/11/2024 Radha Gustafson On license of [facility] [address] [place] [address] 03/26/2024 Radha Gustafson Other secondary hypertension I15.8 and Other fatigue R53.83 On license of [facility] [address] [place] [address] 03/31/2024 Radha Gustafson On license of [facility] [address] [place] [address] 05/20/2024 Radha Eugene Acute UTI N39.0 On license of [facility] [address] [place] [address] 09/24/2024 Radha Gustafson Hypertensive heart disease with heart failure I11.0 [facility] [address] [place] [address] 09/25/2024 [facility] [address] [place] [address] 09/26/2024 [facility] [address] [place] [address] 10/07/2024 [facility] [address] [place] [address] 10/08/2024 [facility] [address] [place] [address] 12/19/2024 Radha Gustafson Assessments Encounter Date Diagnosis (ICD Code) Assessment Notes Treatment Notes Treatment Clinical Notes Section Notes 01/09/2024 Dysuria (ICD-10 - R30.0) abx not indicated. pt and agreeable. we discussed saul care 01/09/2024 Other fatigue (ICD-10 - R53.83) 03/26/2024 Other secondary hypertension (ICD-10 - I15.8) 05/16/2024 Dysuria (ICD-10 - R30.0) 05/16/2024 Acute UTI (ICD-10 - N39.0) 03/27/2024 Hypertensive heart disease with heart failure (ICD-10 - I11.0) f/u [facility] 03/27/2024 Heart failure, unspecified HF chronicity, unspecified heart failure type (ICD-10 - I50.9) f/u [facility] 05/20/2024 Acute UTI (ICD-10 - N39.0) 05/30/2024 Heart murmur (ICD-10 - R01.1) f/u cardiology 05/30/2024 Acute vaginitis (ICD-10 - N76.0) resolved. f/u prn 09/24/2024 Hypertensive heart disease with heart failure (ICD-10 - I11.0) 09/25/2024 Hypothyroidism, unspecified type (ICD-10 - E03.9) 09/25/2024 Intertrigo (ICD-10 - L30.4) 10/04/2024 Hallucinations, unspecified (ICD-10 - R44.3) 10/04/2024 Acute UTI (ICD-10 - N39.0) 10/04/2024 Hypertensive heart disease with heart failure (ICD-10 - I11.0) 09/25/2024 Hypertensive heart disease with heart failure (ICD-10 - I11.0) 05/30/2024 Seborrheic keratoses (ICD-10 - L82.1) reassurance, Seborrheic Keratosis: Care Instructions material was printed 05/16/2024 Urinary urgency (ICD-10 - R39.15) 03/26/2024 Other fatigue (ICD-10 - R53.83) 03/27/2024 Situational depression (ICD-10 - F43.21) rx not indicated. she is trying to get moved closer to family 03/27/2024 Post-menopausal (ICD-10 - Z78.0) 05/16/2024 Vaginal discharge (ICD-10 - N89.8) Call or return if worsening or not improving. 09/25/2024 Acute foreign body of left ear canal, initial encounter (ICD-10 - T16.2XXA) 09/25/2024 Heart failure, unspecified HF chronicity, unspecified heart failure type (ICD-10 - I50.9) 03/27/2024 Hypothyroidism, unspecified type (ICD-10 - E03.9) 03/27/2024 Heart murmur (ICD-10 - R01.1) f/u [facility] 09/25/2024 Seborrheic dermatitis (ICD-10 - L21.9) 09/25/2024 Impaired mobility (ICD-10 - Z74.09) 03/27/2024 Other fatigue (ICD-10 - R53.83) 03/27/2024 [...] Date Urine Dipstick Test 08/09/2023 URINALYSIS, COMPLETE (3246) 05/16/2024 Future Test Test Name Order Date LIPID PANEL, STANDARD (7888) 12/25/2024 COMPREHENSIVE METABOLIC PANEL (04475) CBC (INCLUDES DIFF/PLT) (6399) URINALYSIS, COMPLETE W/REFLEX TO CULTURE (3020) 12/25/2024 TSH W/REFLEX TO FT4 (83438) 12/25/2024 Next Appt Details Provider Name:Radha Gustafson , 01/02/2025 02:00:00 PM, [address], [facility], [place], [address], Medical (General) History Medical History History ICD Code HTN AORTIC VALVE REPLACEMENT (po rcine) 2011, [place]. HAS APPT DR RODRIGUEZ 06/2022, PT CANCELLED HYPOTHYROIDISM RIGHT HAND DOESN'T WORK WELL ...[facility] IN [place], NORMAL MRI. MUSCLE RELAXER HELPS AT COLITIS [...]
== END 2024-12-31 10:50 | disposition home or self-care (01) ==
PROVIDERS: Emergency Provider Emergency Medicine; PCP Nurse Practitioner
DX: Z48.02 Encounter for removal of sutures (principal); Z79.82 Long term (current) use of aspirin; Z79.01 Long term (current) use of anticoagulants; Z87.891 Personal history of nicotine dependence; I10 Essential (primary) hypertension; Z85.828 Personal history of other malignant neoplasm of skin
CPT/HCPCS: 99281

== ENCOUNTER → 2025-01-03 12:42 | Outpatient (BNVA) | payer MEDICARE, SELFPAY | PROVIDERS: PCP Nurse Practitioner Family; Visit Provider Nurse Practitioner Family | DX: I48.91 Unspecified atrial fibrillation (principal); R41.3 Other amnesia | CPT/HCPCS: 80053; 84443; 85025 ==

== ENCOUNTER 2025-01-24 10:52 | Outpatient (CLI) | payer MEDICARE, SELFPAY ==
--- NOTE | 2025-01-24 11:08 | MR_ITS ---
WS: [id number] MRI HEAD WITH CONTRAST TECHNIQUE: Sagittal T1, T2 axial, T2 axial FLAIR, axial susceptibility weighted imaging, axial diffusion weighted images, and coronal T2 images were obtained. Pre and post-T1 axial and post T1 coronal images. ADC and FSPGR images. CLINICAL INFORMATION: I63.9 - Cerebral infarction, unspecified COMPARISON: None. FINDINGS: No evidence of restricted diffusion to suggest acute ischemia. Ventricular system and basilar cisterns are patent. Moderate small vessel changes. Moderate parenchymal volume loss. Small vessel changes in the yara. Normal optic chiasm and pituitary infundibulum. Moderate symmetric atrophy temporal lobes and hippocampal formations. No abnormal gadolinium enhancement. Tiny chronic lacunar infarct LEFT cerebellum. Tiny chronic lacunar infarct LEFT caudate. Normal vascular flow voids at the skull base. No extra-axial fluid collections. Paranasal sinuses are well aerated. Mucosal thickening RIGHT mastoid air cells. Normal posterior n asopharynx. Numerous scattered punctate foci of hemosiderin on susceptibility-weighted images more prominent in the RIGHT cerebellum, LEFT parietal vertex, RIGHT frontal lobe anteriorly, and RIGHT inferior frontal lobe. A few additional tiny punctate foci although difficult to evaluate due to motion. Incidental venous angioma RIGHT parietal MR/MR head wo/w con [id number] IMPRESSION: Some images are limited due to motion artifact. 1. No evidence of restricted diffusion to suggest acute ischemia. 2. Moderate small vessel changes with moderate parenchymal volume loss. 3. Few scattered punctate foci of hemosiderin on susceptibility weighted image s more prominent involving the RIGHT cerebellum, LEFT parietal posteriorly near the vertex, RIGHT frontal lobe, and RIGHT inferior frontal lobe. Several addit ional tiny scattered punctate foci of hemosiderin bilaterally. 4. No abnormal gadolinium enhancement. 5. No other acute findings.
[2025-01-24] MEDS: gadobenate dimeglumine 20 mL vial IV (11:40)
== END 2025-01-24 10:53 | disposition home or self-care (01) ==
LOC: RAD 10:53
PROVIDERS: PCP Nurse Practitioner Family; Visit Provider Nurse Practitioner Family
DX: I63.9 Cerebral infarction, unspecified (principal); R25.1 Tremor, unspecified; R41.3 Other amnesia; G93.9 Disorder of brain, unspecified; R94.02 Abnormal brain scan
CPT/HCPCS: 70553

== ENCOUNTER → 2025-01-29 12:20 | Outpatient (BNVA) | payer MEDICARE, SELFPAY | PROVIDERS: PCP Nurse Practitioner Family; Visit Provider Psychiatry & Neurology Neurology | DX: R25.2 Cramp and spasm (principal); I63.9 Cerebral infarction, unspecified; R25.1 Tremor, unspecified; M54.2 Cervicalgia | CPT/HCPCS: 36415; 82306; 82607; 82746; 83735; 83921; 84155; 84165; 86334; 95816; 99203 ==

== ENCOUNTER 2025-02-10 12:13 | Emergency (ER) | payer MEDICARE, SELFPAY ==
--- OUTSIDE RECORDS SUMMARY | 2024-11-28 08:15 | XMS_ITS ---
Author Organization [facility] [facility] Address [address] [place] [address] Care Team Providers Care Patient Case Manager Name Role Phone Radha Gustafson Unavailable [phone] REASON FOR VISIT 6 month f/u Social History Sex Assigned At : Social History Observation Description Sex Assigned At Female Encounters Encounter Location Date Provider [facility] [address] [address] 11/28/2024 Radha Gustafson Plan Of Treatment No Information Progress Notes * Michelle VERA KDOB:1950 (74 yo F)Acc No.[id number]:11/28/2024 Patient: Steven STACY Michelle Audrey Provider: Gaviota Gustafson :1950 A ge:74 Y S ex:Female Date:11/28/2024 Address:[address] [place], [place] [phone] Subjective: * Chief Complaints: * 1 . 6 month f/u. * Medical History: Objective: * Vitals: Assessment: Plan: * Treatment: * Billing Information: * Visit Code: * Procedure Codes: * Electronic signature of SHANI Lopez iCM on 02/10/2025 at 12:17 PM CDT Sign off status: Pending * Provider: Gaviota Gustafson Date: 0 11/28/2024 Generated for Giai ng/Faxing/eTransmitting on: 0 02/10/2025 12:17 PM CDT
--- OUTSIDE RECORDS SUMMARY | 2024-12-26 03:30 | XMS_ITS ---
Author Organization [facility] Address [address] [place] [id number] Care Team Providers Care Corporate Traffic Manager Name Role Phone Radha Gustafson [phone] REASON FOR VISIT fasting labs Social History Sex Assigned At : Social History Observation Description Sex Assigned At Female Encounters [facility]counter Location Date [facility] [address] [address] 12/26/2024 Radha Gustafson Plan Of Treatment No Information Progress Notes * Michelle VERA KDOB:1950 (74 yo F)Acc No.[id number]:12/26/2024 Patient: Steven STACYMichelle Provider: Gaviota Gustafson :1950 A ge:74 Y S ex:Female Date:12/26/2024 Address:[address] [place], [place] [id number] Subjective: * Chief Complaints: * 1 . Fasting labs. * Medical History: Objective: * Vitals: Assessment: Plan: * Treatment: * Billing Information: * Visit Code: * Procedure Codes: * Electronic signature of DAVIS Lopez [email or web address] on 02/10/2025 at 12:17 PM CDT Sign off status: Pending * Provider: Gaviota Gustafson Date: 12/26/2024 Generated for Giai ng/Faxing/eTransmitting on: 02/10/2025 12:17 PM CDT
--- OUTSIDE RECORDS SUMMARY | 2025-01-02 09:00 | XMS_ITS ---
Author Organization [facility] Address [address] [place] [address] Care Team Providers Care Rn Interventional Name Role Phone Fabian Gustafsoni Unavailable [phone] REASON FOR VISIT 3 month f/u & review labs Social History Sex Assigned At : Social History Observation Description Sex Assigned At Female Encounters Encounter [facility] Date [facility] [address] [address] 01/02/2025 Radha Gustafson Plan Of Treatment No Information Progress Notes * Michelle VERA KDOB:1950 (74 yo F)Acc No.[id number]:01/02/2025 Patient: Michelle BEDOYA Provider: Gaviota Gustafson :1950 A ge:74 Y S ex:Female Date:01/02/2025 Address:[address] [place], [place] [phone] Subjective: * Chief Complaints: * 1 . 3 month f/u & review labs. * Medical History: Objective: * Vitals: Assessment: Plan: * Treatment: * Billing Information: * Visit Code: * Procedure Codes: * Electronic signature of SHANI Lopez [email or web address] on 02/10/2025 at 12:16 PM CDT Sign off status: Pending * Provider: Gaviota Gustafson Date: 0 01/02/2025 Generated for Cassandra ng/Faxing/eTransmitting on: 02/10/2025 12:16 PM CDT
[2025-02-10 12:17] VITALS: BP 184/91; PULSE 83; RESP 16; TEMP 36.7; O2SAT 94; BMI 20.9
--- OUTSIDE RECORDS SUMMARY | 2025-02-10 12:17 | XMS_ITS | Patient Health Record ---
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 Name Role Phone Radha Gustafson Unavailable [phone] Allergies Allergen (clinical drug ingredient) Drug/Non Drug Allergy documented on EMR Reaction Allergy Type Onset Date Status nitrofurantoin, macrocrystals / nitrofurantoin, monohydrate Macrobid rash Drug Allergy 04/18/2023 Active Penicillin hives Drug Allergy Active Results Component Value Reference Range Notes Urine Dipstick Test Reviewed date:10/07/2024 08:12:48 PM Interpretation:Abnormal Performing Lab: Notes/Report: Abnormal Glucose neg neg - 4+ Bilirubin neg neg - 3+ Ketones neg neg - 4+ Specific [place] 1.005 1 - 1.030 Blood neg neg - 3+ Ph 6.0 5.0 - 9.0 Protein neg neg - 4+ Urobilinogen neg (0.2) 0.2 - 12 mg/dl Nitrites neg neg - pos Leukocytes 1+ (70) neg - 3+ URINALYSIS, COMPLETE W/REFLE X TO CULTURE (3020) Reviewed date:10/07/2024 08:12:48 PM Interpretation: Performing Lab:[place], [facility]-[id number] Kalli Plascencia, [id number] Vince Garcia MD Notes/Report: 0 0 0 [...] TO FOLLOW CULTURE, URINE, ROUTINE Micro Number: [id number] Test Status: Final Specimen Source: Urine Specimen Quality: Adequate Result: Less than 10,000 CFU/mL of single Gram positive organism isolated. No further testing will be performed. If clinically indicated, recollection using a method to minimize contamination, with prompt transfer to Urine Culture Transport Tube, is recommended. CULTURE, URINE, ROUTINE SEE NOTE CULTURE INDICATED - RESULTS TO FOLLOW CULTURE, URINE, ROUTINE Micro Number: [id number] Test Status: Final Specimen Source: Urine Specimen Quality: Adequate Result: Less than 10,000 CFU/mL of single Gram positive organism isolated. No further testing will be performed. If clinically indicated, recollection using a method to minimize contamination, with prompt transfer to Urine Culture Transport Tube, is recommended. LIPID PANEL, STANDARD (7600) Reviewed date:03/31/2024 05:51:30 PM Interpretation: Performing Lab:[facility]-[id number] Cory [id number] Vince Garcia MD Notes/Report: 0 0 0 [...] LDL-C. Pranav PAREDES et al. CHAN. 2013;310(19): 9728-2069 (http://education.I-lighting/faq/GNV350) CHOL/HDLC RATIO 2.7 <5.0 (calc) NON HDL CHOLESTEROL 139 <130 mg/dL (calc) For patients with diabetes plus 1 major ASCVD risk factor, treating to a non-HDL-C goal of <100 mg/dL (LDL-C of <70 mg/dL) is considered a therapeutic option. BASIC METABOLIC PANEL (53674 ) Reviewed date:03/31/2024 05:51:30 PM Interpretation: Performing Lab:[facility]-[id number] Kalli Plascencia, [id number] Vince Garcia MD Notes/Report: 0 0 0 [...] Reviewed date:03/31/2024 05:51:30 PM Interpretation: Performing Lab:[facility]-[id number] Kalli Plascencia, GpyzniLT[address] Vince Garcia MD Notes/Report: 0 0 0 [...] MPV 11.8 7.5-12.5 fL ABSOLUTE NEUTROPHILS 3260 5470-0863 cells/uL ABSOLUTE LYMPHOCYTES 9935 334-4840 cells/uL ABSOLUTE MONOCYTES 365 200-950 cells/uL ABSOLUTE EOSINOPHILS 80 15-500 cells/uL ABSOLUTE BASOPHILS 40 0-200 cells/uL NEUTROPHILS 57.2 LYMPHOCYTES 34.3 MONOCYTES 6.4 EOSINOPHILS 1.4 BASOPHILS 0.7 TSH W/REFLEX TO FT4 (52434) Reviewed date:03/31/2024 05:51:30 PM Interpretation: Performing Lab:[facility]-[id number] Kalli Plascencia [id number] Vince Garcia MD Notes/Report: 0 0 0 0 TSH W/REFLEX TO FT4 1.84 0.40-4.50 mIU/L Urine Dipstick Test Reviewed date:05/22/2024 11:05:00 AM Interpretation:Abnormal Performing Lab: Notes/Report: Abnormal Glucose neg neg - 4+ Bilirubin neg neg - 3+ Ketones neg neg - 4+ Specific [place] 1.005 1 - 1.030 Blood neg neg - 3+ Ph neg 5.0 - 9.0 Protein neg neg - 4+ Urobilinogen neg 0.2 - 12 mg/dl Nitrites neg neg - pos Leukocytes 3+ (500) neg - 3+ CULTURE, URINE, ROUTINE (395 ) Reviewed date:05/22/2024 11:05:00 AM Interpretation: Performing Lab:[facility]-Tbybrc29009 Kalli Plascencia, [id number] Vince Garcia MD Notes/Report: 0 CULTURE, URINE, ROUTINE SEE NOTE CULTURE, URINE, ROUTINE Micro Number: [id number] Test Status: Final Specimen Source: Clean catch [...] cefdinir, cefpodoxime, cefprozil, cefuroxime, cephalexin and loracarbef. Reason For Referral No Information Medications Medication SIG (Take, Route, Frequency, Duration) Notes Start Date End Date Status Famotidine 40 MG 1 tablet as needed Orally Once a day; Duration: 90 days Active Meclizine HCl 25 MG 1 tablet as needed Oral every 12 hrs; Duration: 30 days Not-Taking Pvnchnom-Xcvdwzazt-DJ 1 % 4 drops into a ffected [...] HX OF 25YR SMOKING HX, QUIT 10YR HX OF 25YR SMOKING HX, QUIT 10YR 2011 Problems Problem Type SNOMED Code ICD Code Onset Dates Problem Status W/U Status Risk Notes Problem Hypertensive heart failure (89221762) Hypertensive heart disease with heart failure (I11.0) Active confirmed Problem Secondary hypertension (07982718) Other secondary hypertension (I15.8) Active confirmed Problem Dysuria (85968696) Dysuria (R30.0) Active confirmed Problem Visual hallucinations (97755466) Visual hallucinations (R44.1) Active confirmed Problem Hallucinations (2673866) Hallucinations, unspecified (R44.3) Active confirmed Problem Fatigue (00683574) Other fatigue (R53.83) Active confirmed Problem Primary hypertension (61015055) Primary hypertension (I10) Active confirmed Problem Hypersomnia (58648322) Hypersomnia (G47.10) Active confirmed Problem Heart murmur (97032621) Heart murmur (R01.1) Active confirmed Problem Constipation (23430195) Constipation, unspecified constipation type (K59.00) Active confirmed Problem Postmenopausal state (47954322) Post-menopausal (Z78.0) Active confirmed Problem Hypothyroidism (83751675) Hypothyroidism, unspecified type (E03.9) Active confirmed Problem Acute urinary tract infection (372247159) Acute UTI (N39.0) Active confirmed Problem History of heart valve repair with prosthesis (792642220344945) Aortic valve replaced (Z95.2) Active confirmed Problem Heart failure (26412928) Heart failure, unspecified HF chronicity, unspecified heart failure type (I50.9) Active confirmed Problem Multiple seborrheic keratoses (730242338) Seborrheic keratoses (L82.1) Active confirmed Problem Reactive depression (situational) (10861417) Situational depression (F43.21) Active confirmed Vital Signs Heart Rate 78 /min 10/04/2024 Temperature 98.1 degrees Fahrenheit 10/04/2024 Height-cm 153.67 cm 10/04/2024 Oximetry 98 % 10/04/2024 Blood pressure diastolic 80 mm Hg 10/04/2024 Weight-kg 62.6 kg 10/04/2024 Height 60.5 in 10/04/2024 Blood pressure systolic 136 mm Hg 10/04/2024 Weight 138 lbs 10/04/2024 BMI 26.5 kg/m2 10/04/2024 Encounters Encounter Location Date Provider Diagnosis [facility] [email or web address] [facility] [address] [place] [phone] 03/27/2024 Radha Gustafson Hypertensive heart disease with heart failure I11.0 ; Heart failure, unspecified HF chronicity, unspecified heart failure type I50.9 ; Situational depression F43.21 ; Post-menopausal Z78.0 ; Hypothyroidism, unspecified type E03.9 ; Heart murmur R01.1 ; Other fatigue R53.83 and Aortic valve replaced Z95.2 Formerly [facility] [employer] [address] 05/16/2024 Radha Gustafson Dysuria R30.0 ; Acut e UTI N39.0 ; Urinary urgency R39.15 and Vaginal discharge N89.8 [facility] [email or web address] [address] [address] 05/30/2024 Radha Gustafson Heart murmur R01.1 ; Acute vaginitis N76.0 and Seborrheic keratoses L82.1 [facility] [employer] [address] [address] 09/25/2024 Radha Gustafson Hypothyroidism, unspecified type E03.9 ; Intertrigo L30.4 ; Hypertensive heart disease with heart failure I11.0 ; Acute foreign body of left ear canal, initial encounter T16.2XXA ; Heart failure, unspecified HF chronicity, unspecified heart failure type I50.9 ; Seborrheic dermatitis L21.9 and Impaired mobility Z74.09 [facility] [employer] [address] [address] 10/04/2024 Radha Gustafson Hallucinations, unspecified R44.3 ; Acute UTI N39.0 and Hypertensive heart disease with heart failure I11.0 [facility] [employer] [address] 03/26/2024 Radha Gustafson Other secondary hypertension I15.8 and Other fatigue R53.83 [facility] [address] [place] [address] 03/31/[address] [address] 05/20/2024 Radha Gustafson Acute UTI N39.[address] [address] 09/24/2024 Radhablanquita Olivoen Hypertensive heart disease with heart failure I11.[address] [address] 09/25/[address] [address] 09/26/[address] [address] 10/07/[address] [address] 10/08/[address] [address] 12/19/[address] [address] 12/31/2024 Radhablanquita Gustafson Assessments Encounter Date Diagnosis (ICD Code) Assessment Notes Treatment Notes Treatment Clinical Notes Section Notes 03/26/2024 Other secondary hypertension (ICD-10 - I15.8) [...] Date Urine Dipstick Test 08/09/2023 URINALYSIS, COMPLETE (5463) 05/16/2024 Future Test Test Name Order Date LIPID PANEL, STANDARD (7600) 12/25/2024 COMPREHENSIVE METABOLIC PANEL (09612) CBC (INCLUDES DIFF/PLT) (6399) URINALYSIS, COMPLETE W/REFLEX TO CULTURE (3020) 12/25/2024 TSH W/REFLEX TO FT4 (45302) 12/25/2024 Medical (General) History Medical History History ICD Code HTN AORTIC VALVE REPLACEMENT (po rcine) 2011, [place]. HAS APPT DR RODRIGUEZ 06/2022, PT CANCELLED HYPOTHYROIDISM RIGHT HAND DOESN'T WORK WELL ...[facility] IN [place], NORMAL MRI. MUSCLE RELAXER HELPS AT COLITIS SUMMER 2021...DIDN'T KEEP COLONO SCOPY APPT. NORMAL COLONOSCOPY 2017. RECOMMEND REPEA T 2022 DEXA; NEVER DONE RIGHT HAND WEAKNESS , DECREA SED COORDINATION. HAD NEURO CONSULT A FEW YEARS AGO. NO DX GIVEN aneurysm repair at time of valve replace ment Surgical History Surgery Date(Month/Year) AORTIC VALVE REPLACEMENT 2011 THORACIC ANEURYSM REPAIR 2011 [facility]AR[facility] SURGERY , DR THURMAN 2021 BASAL CELL CANCER FACE CHOLECYSTECTOMY LUMPECTOMY
--- NOTE | 2025-02-10 12:19 | ECG_ITS ---
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 Measurements Intervals [place] Rate: 81 P: 27 [place]: 179 QRS: -26 QRSD: 145 T: 117 QT: 433 QTc: 503 Interpretive Statements SINUS RHYTHM POSSIBLE LEFT ATRIAL ENLARGEMENT [-0.1mV P-WAVE IN V1/V2] LEFT BUNDLE BRANCH BLOCK [120+ ms QRS DURATION, 80+ ms Q/S IN V1/V2, 85+ ms R IN I/aVL/V5/V6] Compared to ECG 12/19/2024 09:00:42 Left bundle-branch block now present Sinus tachycardia no longer present Intraventricular conduction delay no longer present T-wave abnormality no longer present Possible ischemia no longer present Electronically Signed On 02-10-2025 19:00:32 CDT by Radha Chávez M.D. [email or web address]
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
[2025-02-10 12:40] LABS: Hematocrit 38.0 % (36-47); Hemoglobin 12.70 g/dL (11.27-16.99); Mean Corpuscular HGB Conc 33.4 g/dL (30-55); Mean Corpuscular Hemoglobin 30.4 pg (27-33); Mean Corpuscular Volume 90.9 fl (85-98); Nucleated Red Blood Cells % 0 %; Platelet Count 202 10^3/cmm (157-399); Red Blood Count 4.18 10^6/uL (3.85-5.65); White Blood Count 9.22 10^3/uL (3.29-11.43)
[2025-02-10 12:56] LABS: Anion Gap 17.5 (5-19); Blood Urea Nitrogen 4 mg/dL (8-23); Calcium 9.3 mg/dL (8.5-10.5); Carbon Dioxide 25 mmol/L (22-29); Chloride 100 mmol/L (98-107); Creatinine Clr Calc Pharmacy 55.5752; Glucose 144 mg/dL (65-115); Osmolality Calculated 287 mOsm/kg (285-295); Potassium 3.5 mmol/L (3.5-5.1); Sodium 139 mmol/L (136-145)
[2025-02-10] MEDS: tetanus-dipt-pertussis 0.5 mL SDV IM (13:11)
[2025-02-10 15:02] VITALS: BP 121/92; PULSE 105; O2SAT 90
== END 2025-02-10 15:03 | disposition home or self-care (01) ==
PROVIDERS: Emergency Provider Family Medicine; PCP Nurse Practitioner Family
DX: M62.830 Muscle spasm of back (principal); S32.031A Stable burst fracture of third lumbar vertebra, initial encounter for closed fracture; S61.412A Laceration without foreign body of left hand, initial encounter; S61.411A Laceration without foreign body of right hand, initial encounter; V89.2XXA Person injured in unspecified motor-vehicle accident, traffic, initial encounter; Z79.01 Long term (current) use of anticoagulants; Z87.891 Personal history of nicotine dependence; I10 Essential (primary) hypertension; Z85.828 Personal history of other malignant neoplasm of skin
CPT/HCPCS: 70450; 71045; 72125; 72131; 80048; 85025; 90715; 93005; 99285

== ENCOUNTER → 2025-02-15 11:34 | Outpatient (BNVA) | payer MEDICARE, SELFPAY | PROVIDERS: PCP Nurse Practitioner Family; Visit Provider Nurse Practitioner Family | DX: R39.9 Unspecified symptoms and signs involving the genitourinary system (principal) | CPT/HCPCS: 81000; 87086 ==

== ENCOUNTER → 2025-02-26 13:30 | Outpatient (BNVA) | payer MEDICARE, SELFPAY | PROVIDERS: PCP Nurse Practitioner Family; Visit Provider Nurse Practitioner Family | DX: N39.0 Urinary tract infection, site not specified (principal) | CPT/HCPCS: 81000 ==

== ENCOUNTER 2025-03-01 12:54 | Outpatient (CLI) | payer MEDICARE, SELFPAY ==
--- NOTE | 2025-03-01 13:00 | MR_ITS ---
WS: [id number] MRI CERVICAL SPINE with and without contrast HISTORY: G24.3 - Spasmodic torticollis COMPARISON: C-spine CT 02/10/2025. Technique: Multiplanar, multisequence noncontrast imaging of the cervical spine. Sagittal and axial T1 fat sat sequences post-MultiHance 12 cc IV. Moderate increase in cervical lordosis and upper thoracic kyphosis. No marrow edema in the cervical spine. Disc bases are narrowed. Mild anterior wedging of T3, T4 and T5. Craniocervical junction, C1 and C2 relationship, odontoid process and soft tissues are normal. C2-C3: Normal. C3-C4: Mild bilateral facet arthritis. Minimal disc bulging. No stenosis. C4-C5: Mild annular disc bulging with osteophytic ridging and mild facet arthritis. Very mild central stenosis. C5-C6: Diffuse disc bulging with a shallow central disc protrusion. Moderate facet arthritis. Mild central and moderate bilateral foraminal stenosis. C6-C7: Diffuse disc bulging. Bilateral foraminal osteophytes causing mild stenosis. Greater stenosis on the LEFT. C7-T1: No stenosis. Paraspinal soft tissues are negative. No enhancement. No acute synovitis identified. No mass. No discitis or osteomyelitis. MR/MR cervical spine wo/w [id number] IMPRESSION: 1. No acute cervical spine fracture. 2. Mild anterior wedging T3, T4 and T5 from prior osteoporotic compression fra ctures. 3. Mild central stenosis from C4-5 through C6-7. 4. Additional facet joint arthritis from C3-4 through C6-7. 5. Moderate bilateral foraminal stenosis due to disc osteophyte disease at C5- 6 and bilateral mild foraminal stenosis at C4-5 and C6-7. 6. No discitis or osteomyelitis.
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
[2025-03-01] MEDS: gadobenate dimeglumine 20 mL vial IV (13:44)
== END 2025-03-01 12:55 | disposition home or self-care (01) ==
LOC: RAD 12:58
PROVIDERS: PCP Nurse Practitioner Family; Visit Provider Psychiatry & Neurology Neurology
DX: G24.3 Spasmodic torticollis (principal); M62.838 Other muscle spasm; G25.3 Myoclonus; R07.81 Pleurodynia
CPT/HCPCS: 71101; 72156

== ENCOUNTER → 2025-03-04 13:52 | Outpatient (BNVA) | payer MEDICARE, SELFPAY | PROVIDERS: PCP Nurse Practitioner Family; Visit Provider Nurse Practitioner Family | DX: J90 Pleural effusion, not elsewhere classified (principal); Z98.890 Other specified postprocedural states | CPT/HCPCS: 71046 ==

== ENCOUNTER 2025-03-19 15:50 | Outpatient (CLI) | payer MEDICARE, SELFPAY ==
--- NOTE | 2025-03-19 16:15 | CT_ITS ---
WS: [id number] CT chest wo con [id number] HISTORY: R07.81 - Pleurodynia TECHNIQUE: Axial imaging performed through the thorax. Coronal and sagittal reformats are submitted. All CT scans at [facility] use at least one of these dose optimization techniques: automated exposure control; mA and/or kV adjustment per patient size (includes targeted exams where dose is matched to clinical indication); or iterative reconstruction. CONTRAST: Omnipaque 350; 100 mL IV. DLP: 192.63 mGy.cm COMPARISON: Chest radiograph 03/04/2025, rib series 03/01/2025, chest radiograph 02/10/2025 On the localizer images patient is rotated significantly to the RIGHT. The mediastinum is widened but this may be in part be due to the rotation. Lungs and central airway: Mild centrilobular emphysema. 5 mm spiculated nodule RIGHT lower lobe. Mild bilateral bandlike atelectasis. Pleura: Small LEFT pleural effusion with adjacent subsegmental atelectasis. Heart and pericardium: Moderate cardiomegaly. No pericardial effusion. Patient is status post aortic valve replacement. Mediastinum and fanny: No adenopathy identified. Vessels: Prior aortic valve replacement. There is marked dilatation of the aortic arch to 4.7 cm. The proximal aorta is heavily calcified. Beyond the aortic calcification through the aortic arch the aortic is markedly dilated. There is ectasia noted extending into the great vessels also. Descending aorta is normal caliber. Chest wall and lower neck: Prior CABG. Upper abdomen: Visualized liver is negative. Splenic granulomata. No renal mass. Osseous structures: Marked increase in thoracic kyphosis. Mild several mild compression fractures in the midthoracic spine. No retropulsion. Mild deformity the sternum but no obvious fracture is noted superimposed with changes of prior CABG. There is some motion artifact. Healing anterior LEFT rib fractures involving the second, third, fifth and seventh ribs. CT/CT chest wo con [id number] IMPRESSION: 1. Mediastinal widening noted on the localizer image. This is probably in part due to rotation of the patient. Consider additional evaluation of the aorta to exclude injury. CTA thoracic aorta recommended. 2. Very small LEFT pleural effusion with LEFT basilar atelectasis. 3. Moderate cardiomegaly. No pericardial effusion. 4. Prior post aortic valve replacement. 5. Prior CABG. 6. Healing fractures in the anterior LEFT thorax including the second, third, fifth and seventh ribs. 7. Markedly ectatic thoracic aorta with aneurysmal dilatation to the arch to 4 .7 cm. This can be further evaluated by CT angiogram thoracic aorta to exclude injury.
== END 2025-03-19 15:51 | disposition home or self-care (01) ==
LOC: RAD 15:52
PROVIDERS: PCP Nurse Practitioner Family; Visit Provider Nurse Practitioner Family
DX: R07.81 Pleurodynia (principal); J90 Pleural effusion, not elsewhere classified
CPT/HCPCS: 71250

== ENCOUNTER → 2025-03-21 12:13 | Outpatient (BNVA) | payer MEDICARE, SELFPAY | PROVIDERS: PCP Nurse Practitioner Family; Referring Provider Nurse Practitioner Family; Visit Provider Internal Medicine | DX: I48.91 Unspecified atrial fibrillation (principal); I10 Essential (primary) hypertension; Z95.2 Presence of prosthetic heart valve; Z86.73 Personal history of transient ischemic attack (TIA), and cerebral infarction without residual deficits; Z79.01 Long term (current) use of anticoagulants | CPT/HCPCS: 99204 ==

== ENCOUNTER 2025-03-29 12:24 | Outpatient (CLI) | payer MEDICARE, SELFPAY ==
--- NOTE | 2025-03-29 12:45 | USR_ITS ---
PROCEDURE INFORMATION: Exam: US Pelvis, Complete, Non-Obstetric Exam date and time: 03/29/2025 12:39 PM Age: 74 years old Clinical indication: Pelvic pain; Left lower quadrant pain; Additional info: R10.32 - left lower quadrant pain TECHNIQUE: Imaging protocol: Transabdominal pelvic nonobstetric ultrasound. Complete exam. Real time ultrasound with image documentation. COMPARISON: CT lumbar spine wo con* [id number] 02/10/2025 12:57 PM FINDINGS: Valsalva of the left groin demonstrated no reducible hernia. US/US pelvic limited [id number] IMPRESSION: Valsalva of the left groin demonstrated no reducible hernia.
== END 2025-03-29 12:25 | disposition home or self-care (01) ==
LOC: RAD 12:26
PROVIDERS: PCP Nurse Practitioner Family; Visit Provider Nurse Practitioner Family
DX: R10.32 Left lower quadrant pain (principal)
CPT/HCPCS: 76857

== ENCOUNTER 2025-04-03 13:29 | Outpatient (CLI) | payer MEDICARE, SELFPAY ==
--- NOTE | 2025-04-03 13:45 | CT_ITS ---
WS: [id number] CT angio chest [id number] REASON FOR EXAM: I71.20 - Thoracic aortic aneurysm, without rupture, unspe... TECHNIQUE: Coronal and sagittal 2-D and MIP reformations. IV CONTRAST ADMINISTERED: 100 mL of Omnipaque 350 TECHNIQUE: Multiple axial images of the chest with intravenous contrast enhancement. COMPARISON EXAMINATION: CT scan of the chest without contrast 03/19/2025. TOTAL EXAM DLP: All CT scans at [facility] use at least one of these dose optimization techniques: automated exposure control; mA and/or kV adjustment per patient size (includes targeted exams where dose is matched to clinical indication); or iterative reconstruction. FINDINGS: The current examination is unchanged compared to the previous study. This contrasted examination again demonstrates the aneurysmal dilatation of the ascending thoracic aorta with a maximum diameter of 7.5 cm. There is no significant mural thrombus. No mural abnormality. The descending thoracic aorta has a maximum diameter of 2.7 cm. No pulmonary artery abnormality is identified. Significant central lobar emphysema. CT/CT angio chest [id number] IMPRESSION: Ascending aortic aneurysm as above. Significant central lobar emphysema.
[2025-04-03] MEDS: iohexol 350 mg/mL 500 mL Btl (per mL) IV (14:30)
== END 2025-04-03 13:30 | disposition home or self-care (01) ==
LOC: RAD 13:30
PROVIDERS: PCP Nurse Practitioner Family; Visit Provider Nurse Practitioner Family
DX: I71.20 Thoracic aortic aneurysm, without rupture, unspecified (principal); J43.2 Centrilobular emphysema
CPT/HCPCS: 71275

== ENCOUNTER → 2025-04-18 12:07 | Outpatient (BNVA) | payer MEDICARE, SELFPAY | PROVIDERS: PCP Nurse Practitioner Family; Visit Provider Nurse Practitioner Family | DX: I10 Essential (primary) hypertension (principal); I63.9 Cerebral infarction, unspecified | CPT/HCPCS: 80053; 80061; 85025 ==

== ENCOUNTER → 2025-05-07 11:58 | Outpatient (BNVA) | payer MEDICARE, SELFPAY | PROVIDERS: PCP Nurse Practitioner Family; Visit Provider Nurse Practitioner Family | DX: R39.9 Unspecified symptoms and signs involving the genitourinary system (principal) | CPT/HCPCS: 81000; 81003; 87086 ==